=== PATIENT | female | born 1945 | race American Indian/Alaskan Native ===

== ENCOUNTER 2018-02-17 10:37 | Emergency (ER) | payer MEDICARE ==
[2018-02-17 10:47] VITALS: BP 140/71
--- NOTE | 2018-02-17 11:57 | Emergency Department Report ---
ED Lower Extremity HPI - General Chief Complaint: Extremity Problem,Nontraumatic Stated Complaint: RT FOOT PAIN Time Seen by Provider: 02/17/18 11:24 Source: patient Mode of arrival: Wheelchair Limitations: No Limitations - History of Present Illness Initial Comments: This is a 72 y.o. female that presents to the emergency room with a complaint of right ankle and foot pain for 6 days. Patient states symptoms started last Monday as mild aching on right heel. Patient admits to history of heel spurs and thought pain was related to that. She admits to falling at her daughter at [employer] and that possibly aggravated right foot. She is currently taking OTC NSAID's for pain with no improvement of symptoms. She reports pain as 10/10 and throbbing in sensation with weightbearing. Patient denies numbness , tingling, redness, fever, nausea or vomiting. MD Complaint: ankle injury (right), foot injury (right) Onset/Timin -: days(s) Injury: Ankle: Right, Foot: Right Type of Injury: unknown Place: home Severity: moderate Severity scale (0 -10): 10 Improves With: nothing Worsens With: weight bearing, movement, palpation Associated Symptoms: swelling, able to partially bear weight, ambulatory. denies: snap/pop sensation, numbness, tingling, unable to bear weight Treatments Prior to Arrival: NSAIDS - Related Data Home Medications Medication Instructions Recorded Confirmed Last Taken HYDROcodone/ACETAMINOPHEN 1 tab PO PRN 09/12/13 11/24/15 09/09/13 [Hydrocodon-Acetaminophen 5-325] Insulin Glargine,Hum.rec.anlog 15 units SC QAM 09/12/13 11/24/15 11/23/15 [Lantus Solostar] 15 Insulin Glargine,Hum.rec.anlog 25 units SC HS 09/12/13 11/24/15 09/11/13 [Lantus] Isosorbide Mononitrate [Isosorbide 120 mg PO DAILY 09/12/13 11/24/15 11/24/15 05 :00 Mononitrate ER] 120mg Repaglinide 1 tab PO TID 09/12/13 11/24/15 11/24/15 05:00 2mg Ropinirole HCl 1 tab PO DAILY 09/12/13 11/24/15 11/24/15 05:00 1 Valsartan/Hydrochlorothiazide 1 tab PO DAILY 09/12/13 11/24/15 11/24/15 05:00 [Valsartan-Hctz 320-25 mg] 1 Atorvastatin [Lipitor] 40 mg PO QHS 11/24/15 11/24/15 11/23/15 40mg Carvedilol [Coreg] 25 mg PO DAILY 11/24/15 11/24/15 11/24/15 05:00 25mg Clonidine HCl [Catapres] 0.3 mg PO TID 11/24/15 11/24/15 11/24/15 05:00 0.3mg Clopidogrel Bisulfate [Plavix] 75 mg PO DAILY 11/24/15 11/24/15 11/17/15 75mg Ferrous Sulfate [Feosol 325 MG tab] 325 mg PO DAILY 11/24/15 11/24/15 11/24/15 05:00 325mg Furosemide [Lasix TAB] 40 mg PO DAILY 11/24/15 11/24/15 11/24/15 05:00 40mg ISOSORBIDE MONOnitrate [Imdur ER] 120 mg PO QDAY 11/24/15 11/24/15 11/24/15 05: 00 120mg Linagliptin [Tradjenta] 5 mg PO DAILY 11/24/15 11/24/15 11/24/15 05:00 5mg Oxaprozin 600 mg PO BID 11/24/15 11/24/15 11/24/15 05:00 600mg Potassium Chloride [Klor-Con 10] 20 meq PO DAILY 11/24/15 11/24/15 11/24/15 20meq Repaglinide [Prandin] 2 mg PO TID 11/24/15 11/24/15 11/24/15 05:00 2mg amLODIPine 10 mg PO DAILY 11/24/15 11/24/15 11/24/15 05:00 10mg hydrALAZINE [Apresoline TAB] 100 mg PO TID 11/24/15 11/24/15 11/24/15 05:00 100mg rOPINIRole [Requip] 1 mg PO DAILY 11/24/15 11/24/15 11/24/15 05:00 1mg Previous Rx's Medication Instructions Recorded Last Taken Type Naproxen [Naprosyn] 500 mg PO BID #15 tablet 02/17/18 Unknown Rx traMADol [Ultram 50 MG tab] 50 mg PO Q6HR PRN #12 tablet 02/17/18 Unknown Rx Allergies Allergy/AdvReac Type Severity Reaction Status Date / Time nitroglycerin AdvReac Shortness Verified 11/24/15 08:48 of Breath ED Review of Systems ROS: Stated complaint: RT FOOT PAIN Other details as noted in HPI Constitutional: denies: chills, fever Respiratory: denies: cough, shortness of breath, wheezing Cardiovascular: denies: chest pain, palpitations Gastrointestinal: denies: abdominal pain, nausea, diarrhea Musculoskeletal: joint swelling (right ankle), arthralgia (right ankle and foot pain). denies: back pain Skin: denies: rash, lesions Neurological: denies: headache, weakness, numbness, paresthesias Psychiatric: denies: anxiety, depression ED Past Medical Hx - Past Medical History Hx Hypertension: Yes Hx Congestive Heart Failure: Yes Hx Diabetes: Yes Hx Renal Disease: Yes Hx Arthritis: Yes - Surgical History Hx Coronary Stent: Yes (2008) Hx Open Heart Surgery: Yes - Social History Smoking Status: Never Smoker Substance Use Type: None - Medications Home Medications: Home Medications Medication Instructions Recorded Confirmed Last Taken Type HYDROcodone/ACETAMINOPHEN 1 tab PO PRN 09/12/13 11/24/15 09/09/13 History [Hydrocodon-Acetaminophen 5-325] Insulin Glargine,Hum.rec.anlog 15 units SC QAM 09/12/13 11/24/15 11/23/15 History [Lantus Solostar] 15 Insulin Glargine,Hum.rec.anlog 25 units SC HS 09/12/13 11/24/15 09/11/13 History [Lantus] Isosorbide Mononitrate [Isosorbide 120 mg PO DAILY 09/12/13 11/24/15 11/24/15 05 :00 History Mononitrate ER] 120mg Repaglinide 1 tab PO TID 09/12/13 11/24/15 11/24/15 05:00 History 2mg Ropinirole HCl 1 tab PO DAILY 09/12/13 11/24/15 11/24/15 05:00 History 1 Valsartan/Hydrochlorothiazide 1 tab PO DAILY 09/12/13 11/24/15 11/24/15 05:00 History [Valsartan-Hctz 320-25 mg] 1 Atorvastatin [Lipitor] 40 mg PO QHS 11/24/15 11/24/15 11/23/15 History 40mg Carvedilol [Coreg] 25 mg PO DAILY 11/24/15 11/24/15 11/24/15 05:00 History 25mg Clonidine HCl [Catapres] 0.3 mg PO TID 11/24/15 11/24/15 11/24/15 05:00 History 0.3mg Clopidogrel Bisulfate [Plavix] 75 mg PO DAILY 11/24/15 11/24/15 11/17/15 History 75mg Ferrous Sulfate [Feosol 325 MG tab] 325 mg PO DAILY 11/24/15 11/24/15 11/24/15 05:00 History 325mg Furosemide [Lasix TAB] 40 mg PO DAILY 11/24/15 11/24/15 11/24/15 05:00 History 40mg ISOSORBIDE MONOnitrate [Imdur ER] 120 mg PO QDAY 11/24/15 11/24/15 11/24/15 05: 00 History 120mg Linagliptin [Tradjenta] 5 mg PO DAILY 11/24/15 11/24/15 11/24/15 05:00 History 5mg Oxaprozin 600 mg PO BID 11/24/15 11/24/15 11/24/15 05:00 History 600mg Potassium Chloride [Klor-Con 10] 20 meq PO DAILY 11/24/15 11/24/15 11/24/15 History 20meq Repaglinide [Prandin] 2 mg PO TID 11/24/15 11/24/15 11/24/15 05:00 History 2mg amLODIPine 10 mg PO DAILY 11/24/15 11/24/15 11/24/15 05:00 History 10mg hydrALAZINE [Apresoline TAB] 100 mg PO TID 11/24/15 11/24/15 11/24/15 05:00 History 100mg rOPINIRole [Requip] 1 mg PO DAILY 11/24/15 11/24/15 11/24/15 05:00 History 1mg Naproxen [Naprosyn] 500 mg PO BID #15 tablet 02/17/18 Unknown Rx traMADol [Ultram 50 MG tab] 50 mg PO Q6HR PRN #12 tablet 02/17/18 Unknown Rx ED Physical Exam - General Limitations: No Limitations General appearance: alert, in no apparent distress, obese - Respiratory Respiratory exam: Present: normal lung sounds bilaterally. Absent: respiratory distress - Cardiovascular Cardiovascular Exam: Present: regular rate, normal rhythm. Absent: systolic murmur, diastolic murmur, rubs, gallop - GI/Abdominal GI/Abdominal exam: Present: soft, normal bowel sounds. Absent: organomegaly, mass - Extremities Exam Extremities exam: Present: normal capillary refill. Absent: calf tenderness - Expanded Lower Extremity Exam Right Hip exam: Present: normal inspection, full ROM Upper Leg exam: Present: normal inspection, full ROM Knee exam: Present: normal inspection, full ROM Lower Leg exam: Present: normal inspection, full ROM Ankle exam: Present: full ROM, swelling (nonpitting ). Absent: tenderness, abrasion, laceration, ecchymosis, deformity, crepidus, dislocation, erythema, anterior draw sign Foot/Toe exam: Present: full ROM, swelling, calcaneal tenderness. Absent: abrasion, laceration, ecchymosis, deformity, dislocation, erythema, amputation, puncture wound, foreign body, tenderness at base of 5th metatarsal, nail avulsion Neuro vascular tendon exam: Present: no vascular compromise Gait: Positive: observed and limited by pain - Neurological Exam Neurological exam: Present: alert, oriented X3 - Psychiatric Psychiatric exam: Present: normal affect, normal mood - Skin Skin exam: Present: warm, dry, intact, normal color. Absent: rash ED Course Vital Signs 02/17/18 10:44 Temperature 98.4 F Pulse Rate 59 L Respiratory 16 Rate Blood Pressure 140/71 O2 Sat by Pulse 100 Oximetry ED Lower Extremity MDM - Lab Data Result diagrams: 02/17/18 12:25 Lab Results 02/17/18 02/17/18 Range/Units 12:25 12:25 WBC 6.7 (4.5-11.0) K/mm3 RBC 3.79 (3.65-5.03) M/mm3 Hgb 11.2 (10.1-14.3) gm/dl Hct 34.1 (30.3-42.9) % MCV 90 (79-97) fl MCH 30 (28-32) pg MCHC 33 (30-34) % RDW 14.8 (13.2-15.2) % Plt Count 188 (140-440) K/mm3 Uric Acid 10.9 H (3.5-7.6) mg/dL - Radiology Data Radiology results: report reviewed, image reviewed FINAL REPORT EXAM: XR ANKLE 2V RT HISTORY: right ankle pain TECHNIQUE: Two views right ankle. PRIORS: None currently available. FINDINGS: There is no acute fracture. There is no evidence for healing fracture. There is no acute dislocation. Mild nonspecific arthrosis. Prominent calcaneal plantar spur. Vascular calcifications. Osteopenia. Soft tissue swelling. Tiny joint effusion. There is no cortical destruction to suggest osteomyelitis. There are no suspicious osseous lesions. There are no radiopaque foreign objects. IMPRESSION: No acute osseous findings. Mild nonspecific arthrosis at the ankle mortise. Calcaneal plantar spur. Mild soft tissue swelling and tiny joint effusion. - Medical Decision Making This is a 72 y.o. female presents with right ankle and foot pain for 6 days. Patient was examined by me. Vitals are normal and patient is in no acute distress. Patient given pain medication while in emergency room. Obtained uric acid, CBC, x-rays of right foot and ankle. CBC normal, uric acid pending. X-rays dictated by radiologist and report reviewed by myself. No acute osseous findings. Mild nonspecific arthrosis at the ankle mortise. Calcaneal plantar spur. Mild soft tissue swelling and tiny joint effusion. Patient informed of results. Quinten wrap to right lower extremity and apply. Past medical history of diabetes type 2, hypertension, and hyperlipidemia. Start naproxen and tramadol for tendinitis pain. Plan discussed with patient to discharge home and treat outpatient. Patient discharged home in stable condition. Follow up with PCP in 2-3 days. Critical care attestation.: If time is entered above; I have spent that time in minutes in the direct care of this critically ill patient, excluding procedure time. ED Disposition Clinical Impression: Tendinitis of ankle or foot, Right foot pain Right ankle pain Qualifiers: Chronicity: acute Qualified Code(s): M25.571 - Pain in right ankle and joints of right foot Disposition: DC- TO HOME OR SELFCARE Is pt being admited?: No Does the pt Need Aspirin: No Condition: Stable Instructions: Tendinitis (ED), Ankle Exercises (GEN) Additional Instructions: Rest Use ice or heat on affected area for 20 minutes and off for 2 hours. Take pain medication as needed for pain. Follow up with Primary Care Provider in 2-3 days. Prescriptions: Naproxen [Naprosyn] 500 mg PO BID #15 tablet traMADol [Ultram 50 MG tab] 50 mg PO Q6HR PRN #12 tablet PRN Reason: Pain Referrals: MARIVEL ARNOLD MD [Staff Physician] - 3-5 Days DIONICIO PLATT MD [Staff Physician] - 3-5 Days [facility] [Provider Group] - 3-5 Days Time of Disposition: 14:31 Print Language: BULGARIAN
[2018-02-17] MEDS ORDERED: MOTRIN PO ONE (12:29)
[2018-02-17 12:44] LABS: Hematocrit 34.1 % (30.3-42.9); Hemoglobin 11.2 gm/dl (10.1-14.3); Mean Corpuscular HGB Conc 33 % (30-34); Mean Corpuscular Hemoglobin 30 pg (28-32); Mean Corpuscular Volume 90 fl (79-97); Platelet Count 188 K/mm3 (140-440); Red Blood Count 3.79 M/mm3 (3.65-5.03); Red Cell Distribution Width 14.8 % (13.2-15.2)
--- NOTE | 2018-02-17 13:45 | XRay Report ---
FINAL REPORT EXAM: XR ANKLE 2V RT HISTORY: right ankle pain TECHNIQUE: Two views right ankle. PRIORS: None currently available. FINDINGS: There is no acute fracture. There is no evidence for healing fracture. There is no acute dislocation. Mild nonspecific arthrosis. Prominent calcaneal plantar spur. Vascular calcifications. Osteopenia. Soft tissue swelling. Tiny joint effusion. There is no cortical destruction to suggest osteomyelitis. There are no suspicious osseous lesions. There are no radiopaque foreign objects. IMPRESSION: No acute osseous findings. Mild nonspecific arthrosis at the ankle mortise. Calcaneal plantar spur. Mild soft tissue swelling and tiny joint effusion.
--- NOTE | 2018-02-17 13:47 | XRay Report ---
FINAL REPORT EXAM: XR FOOT 2V RT HISTORY: right foot pain TECHNIQUE: Two views right foot. PRIORS: None currently available. FINDINGS: There is no acute fracture. There is no evidence for healing fracture. There is no acute dislocation. Vascular calcifications. Calcaneal plantar spur. [id number] arthrosis at the midfoot. Prominent exostosis or osteophyte at the dorsal aspect of the tarsal bones may be causing tendinopathy. Mild arthrosis at the ankle mortise. There is no cortical destruction to suggest osteomyelitis. There are no suspicious osseous lesions. There are no radiopaque foreign objects. IMPRESSION: No acute osseous findings. Multifocal nonspecific arthrosis. Prominent exostosis or osteophyte at the dorsal aspect of the tarsal bones may be causing tendinopathy. Calcaneal plantar spur.
== END 2018-02-17 14:56 | disposition home or self-care (01) ==
LOC: ED 10:37
DX: M77.9 Enthesopathy, unspecified (principal); I11.0 Hypertensive heart disease with heart failure; I50.9 Heart failure, unspecified; E11.9 Type 2 diabetes mellitus without complications; M19.90 Unspecified osteoarthritis, unspecified site; Z95.1 Presence of aortocoronary bypass graft; Z88.8 Allergy status to other drugs, medicaments and biological substances; Z79.4 Long term (current) use of insulin
CPT/HCPCS: 36415; 84550; 85027; 99284

== ENCOUNTER 2018-04-04 00:04 | Emergency (ER) | payer MEDICARE ==
[2018-04-04] MEDS ORDERED: NACL 0.9% 1000 ML 1,000 ML IV ONE (00:45)
[2018-04-04] MEDS ORDERED: TYLENOL PO ONE (00:48)
[2018-04-04] MEDS ORDERED: NACL 0.9% 500 ML ONE (00:52)
[2018-04-04] MEDS ORDERED: NACL 0.9% 500 ML 500 ML IV ONE (00:52)
--- NOTE | 2018-04-04 01:29 | XRay Report ---
FINAL REPORT EXAM: XR CHEST 1V AP HISTORY: possible Sepsis COMPARISON: None available. FINDINGS: Frontal view(s) of the chest obtained. Mild to moderate cardiac enlargement. Prior median sternotomy.. No gross consolidation or effusion. No pneumothorax. IMPRESSION: No focal consolidation. Mild to moderate cardiac enlargement.
[2018-04-04 01:34] LABS: Basophils % (Auto) 0.5 % (0.0-1.8); Eosinophils % (Auto) 0.3 % (0.0-4.3); Hematocrit 31.7 % (30.3-42.9); Hemoglobin 10.3 gm/dl (10.1-14.3); Lymphocytes # (Auto) 1.2 K/mm3 (1.2-5.4); Mean Corpuscular HGB Conc 32 % (30-34); Mean Corpuscular Hemoglobin 29 pg (28-32); Mean Corpuscular Volume 90 fl (79-97); Monocytes % (Auto) 12.3 % (0.0-7.3); Platelet Count 219 K/mm3 (140-440); Red Blood Count 3.54 M/mm3 (3.65-5.03)
[2018-04-04 01:38] LABS: Albumin 3.6 g/dL (3.9-5); Calcium 9.3 mg/dL (8.4-10.2)
[2018-04-04] MEDS ORDERED: HumuLIN R IV ONE (02:04)
[2018-04-04] MEDS ORDERED: MORPHINE IV ONE (02:09)
[2018-04-04 02:15] LABS: INR 0.91 (0.87-1.13)
[2018-04-04 02:57] LABS: Bacteria,Urine 1+ /HPF (Negative); Bilirubin,Urine NEG (Negative); Blood,Urine NEG (Negative); Color,Urine Straw (Yellow); Protein,Urine >500 mg/dL (Negative); Urobilinogen,Urine < 2.0 mg/dL (<2.0)
--- NOTE | 2018-04-04 03:40 | Cat Scan Report ---
FINAL REPORT EXAM: CT ABDOMEN PELVIS WO CON HISTORY: RLQ and pelvic pain, right flank pain COMPARISON: None available. TECHNIQUE: Contiguous axial images were obtained. Additional sagittal and coronal reformatted images were obtained. FINDINGS: [id number] cardiac enlargement. Subpleural nodule the posterior margin of the left lower lobe measuring 7 x 4 millimeters. This may be postinflammatory. Mild linear atelectasis at the lung bases. No calcified gallstones. Liver mildly enlarged measuring 24 centimeters. Spleen and pancreas are grossly unremarkable. Mild nodular thickening of adrenal glands. Tiny hiatal hernia. 2 centimeter left renal cyst. No nephrolithiasis or hydronephrosis on the left. Mild bilateral perinephric fat stranding greater on the right. No hydronephrosis on the right. No ureteral calculi. Urinary bladder is unremarkable. Uterus is surgically absent. Ovaries are grossly unremarkable. No free fluid or lymphadenopathy in the pelvic cavity. Moderate stool within the colon. The appendix is partially gas-filled and normal in caliber measuring 5-6 millimeters in greatest diameter. Diverticulosis of left colon. No diverticulitis. No focal inflammatory changes the bowel. [id number] degenerative changes of the lumbar spine. Mild degenerative changes of bilateral hips. IMPRESSION: Mild bilateral perinephric fat stranding slightly greater on the right. Correlation with urinalysis suggested to ensure no active inflammation of the kidneys. No obstructive uropathy urolithiasis. Moderate stool in the colon. No focal inflammatory changes the bowel. Mild diverticulosis of left colon. No diverticulitis. The appendix is normal in caliber. Sub millimeter subpleural nodule left lower lobe which may be postinflammatory. Followup chest CT in 6 months suggested to ensure stability.
[2018-04-04] MEDS ORDERED: APRESOLINE IV ONE (03:53)
[2018-04-04 04:17] VITALS: BP 166/74
--- NOTE | 2018-04-04 04:44 | Emergency Department Report ---
HPI - General Chief Complaint: Abdominal Pain Time Seen by Provider: 04/04/18 01:52 - HPI HPI: 72-year-old female presents to the emergency department with a 4 day history of some pain from the right lower back that radiates around the flank to the right lower abdomen and down her right leg. The aching started on Monday but it got progressively worse and is currently more sharp. She denies any dysuria, vaginal bleeding or discharge, problems with bowel or bladder, numbness or paresthesias or any neurological deficits. The patient had some tramadol from previous gout that she had gotten from her primary care physician and she took one of these medications with some relief but not resolution. She has a past medical history of hypertension, diabetes, CHF, chronic kidney disease, coronary artery disease with quadruple bypass. Her primary care physician is Dr. Bro. Her cement cutter is Dr. Walter. The patient presents with a fever. Denies feeling feverish or having any idea that she had a fever. She denies any sore throat, cough, ear pain, rash. ED Past Medical Hx - Past Medical History Previous Medical History?: Yes Hx Hypertension: Yes Hx Congestive Heart Failure: Yes Hx Diabetes: Yes Hx Renal Disease: Yes Hx Arthritis: Yes - Surgical History Past Surgical History?: Yes Hx Coronary Stent: Yes (2008 x) Hx Open Heart Surgery: Yes Additional Surgical History: hyster - Social History Smoking Status: Current Some Day Smoker - Medications Home Medications: Home Medications Medication Instructions Recorded Confirmed Last Taken Type HYDROcodone/ACETAMINOPHEN 1 tab PO PRN 09/12/13 11/24/15 09/09/13 History [Hydrocodon-Acetaminophen 5-325] Insulin Glargine,Hum.rec.anlog 15 units SC QAM 09/12/13 11/24/15 11/23/15 History [Lantus Solostar] 15 Insulin Glargine,Hum.rec.anlog 25 units SC HS 09/12/13 11/24/15 09/11/13 History [Lantus] Isosorbide Mononitrate [Isosorbide 120 mg PO DAILY 09/12/13 11/24/15 11/24/15 05 :00 History Mononitrate ER] 120mg Repaglinide 1 tab PO TID 09/12/13 11/24/15 11/24/15 05:00 History 2mg Ropinirole HCl 1 tab PO DAILY 09/12/13 11/24/15 11/24/15 05:00 History 1 Valsartan/Hydrochlorothiazide 1 tab PO DAILY 09/12/13 11/24/15 11/24/15 05:00 History [Valsartan-Hctz 320-25 mg] 1 Atorvastatin [Lipitor] 40 mg PO QHS 11/24/15 11/24/15 11/23/15 History 40mg Carvedilol [Coreg] 25 mg PO DAILY 11/24/15 11/24/15 11/24/15 05:00 History 25mg Clonidine HCl [Catapres] 0.3 mg PO TID 11/24/15 11/24/15 11/24/15 05:00 History 0.3mg Clopidogrel Bisulfate [Plavix] 75 mg PO DAILY 11/24/15 11/24/15 11/17/15 History 75mg Ferrous Sulfate [Feosol 325 MG tab] 325 mg PO DAILY 11/24/15 11/24/15 11/24/15 05:00 History 325mg Furosemide [Lasix TAB] 40 mg PO DAILY 11/24/15 11/24/15 11/24/15 05:00 History 40mg ISOSORBIDE MONOnitrate [Imdur ER] 120 mg PO QDAY 11/24/15 11/24/15 11/24/15 05: 00 History 120mg Linagliptin [Tradjenta] 5 mg PO DAILY 11/24/15 11/24/15 11/24/15 05:00 History 5mg Oxaprozin 600 mg PO BID 11/24/15 11/24/15 11/24/15 05:00 History 600mg Potassium Chloride [Klor-Con 10] 20 meq PO DAILY 11/24/15 11/24/15 11/24/15 History 20meq Repaglinide [Prandin] 2 mg PO TID 11/24/15 11/24/15 11/24/15 05:00 History 2mg amLODIPine 10 mg PO DAILY 11/24/15 11/24/15 11/24/15 05:00 History 10mg hydrALAZINE [Apresoline TAB] 100 mg PO TID 11/24/15 11/24/15 11/24/15 05:00 History 100mg rOPINIRole [Requip] 1 mg PO DAILY 11/24/15 11/24/15 11/24/15 05:00 History 1mg Naproxen [Naprosyn] 500 mg PO BID #15 tablet 02/17/18 Unknown Rx Docusate Sodium [Colace] 100 mg PO BID PRN #20 capsule 04/04/18 Unknown Rx Magnesium Citrate [Citrate of 300 ml PO NOW #1 bottle 04/04/18 Unknown Rx Magnesia] traMADol [Ultram 50 MG tab] 50 mg PO Q6HR PRN #12 tablet 04/04/18 Unknown Rx ED Review of Systems ROS: Stated complaint: RT FLANK PAIN Other details as noted in HPI Comment: All other systems reviewed and negative Constitutional: fever. denies: chills Eyes: denies: eye pain, eye discharge, vision change ENT: denies: ear pain, throat pain Respiratory: denies: cough, shortness of breath, wheezing Cardiovascular: denies: chest pain, palpitations Gastrointestinal: abdominal pain. denies: vomiting Genitourinary: denies: dysuria, discharge Musculoskeletal: back pain. denies: joint swelling Skin: denies: rash, lesions Neurological: denies: headache, weakness, numbness, paresthesias Physical Exam - Physical Exam Vital Signs: Vital Signs 04/04/18 04/04/18 04/04/18 00:09 01:55 02:57 Temperature 102.6 F H 99.8 F H Pulse Rate 62 65 Respiratory 16 16 Rate Blood Pressure 206/80 Blood Pressure 199/90 [Left] O2 Sat by Pulse 99 Oximetry 04/04/18 04/04/18 04/04/18 03:30 04:01 04:08 Temperature Pulse Rate 61 59 L 55 L Respiratory 16 16 16 Rate Blood Pressure Blood Pressure 172/71 164/89 166/74 [Left] O2 Sat by Pulse 94 97 95 Oximetry 04/04/18 04:16 Temperature Pulse Rate 56 L Respiratory Rate Blood Pressure 166/74 Blood Pressure [Left] O2 Sat by Pulse Oximetry Physical Exam: GENERAL: The patient is well-developed well-nourished. HENT: Normocephalic. Atraumatic. Patient has moist mucous membranes. EYES: Extraocular motions are intact. Pupils equal reactive to light bilaterally. NECK: Supple. Trachea is midline. CHEST/LUNGS: Clear to auscultation. There is no respiratory distress noted. HEART/CARDIOVASCULAR: Regular. There is no tachycardia. There is no murmur. ABDOMEN: Abdomen is soft. There is some right lower quadrant mild tenderness to palpation. No guarding. Patient has normal bowel sounds. Obese habitus. SKIN: Skin is warm and dry. NEURO: The patient is awake, alert, and oriented. The patient is cooperative. The patient has no focal neurologic deficits. The patient has normal speech. MUSCULOSKELETAL: There is no tenderness or deformity. There is no limitation range of motion. There is no evidence of acute injury. BACK: No midline thoracic or lumbar tenderness to palpation, step-off or deformity. There is some reproducible right lower lumbar and buttock pain to palpation. ED Course Vital Signs 04/04/18 04/04/18 04/04/18 00:09 01:55 02:57 Temperature 102.6 F H 99.8 F H Pulse Rate 62 65 Respiratory 16 16 Rate Blood Pressure 206/80 Blood Pressure 199/90 [Left] O2 Sat by Pulse 99 Oximetry 04/04/18 04/04/18 04/04/18 03:30 04:01 04:08 Temperature Pulse Rate 61 59 L 55 L Respiratory 16 16 16 Rate Blood Pressure Blood Pressure 172/71 164/89 166/74 [Left] O2 Sat by Pulse 94 97 95 Oximetry 04/04/18 04:16 Temperature Pulse Rate 56 L Respiratory Rate Blood Pressure 166/74 Blood Pressure [Left] O2 Sat by Pulse Oximetry ED Medical Decision Making - Lab Data Result diagrams: 04/04/18 00:57 04/04/18 00:57 - EKG Data -: EKG Interpreted by Me EKG shows normal: sinus rhythm, axis, intervals, QRS complexes (LVH, early repolarization), ST-T waves Rate: normal - EKG Data When compared to previous EKG there are: previous EKG unavailable Interpretation: LVH - Radiology Data Radiology results: report reviewed, image reviewed interpreted by me: Chest x-ray does not show any acute process. There are no pleural effusions, obvious pneumonia and there is no pneumothorax. EXAM: CT ABDOMEN PELVIS WO CON HISTORY: RLQ and pelvic pain, right flank pain COMPARISON: None available. TECHNIQUE: Contiguous axial images were obtained. Additional sagittal and coronal reformatted images were obtained. FINDINGS: [id number] cardiac enlargement. Subpleural nodule the posterior margin of the left lower lobe measuring 7 x 4 millimeters. This may be postinflammatory. Mild linear atelectasis at the lung bases. No calcified gallstones. Liver mildly enlarged measuring 24 centimeters. Spleen and pancreas are grossly unremarkable. Mild nodular thickening of adrenal glands. Tiny hiatal hernia. 2 centimeter left renal cyst. No nephrolithiasis or hydronephrosis on the left. Mild bilateral perinephric fat stranding greater on the right. No hydronephrosis on the right. No ureteral calculi. Urinary bladder is unremarkable. Uterus is surgically absent. Ovaries are grossly unremarkable. No free fluid or lymphadenopathy in the pelvic cavity. Moderate stool within the colon. The appendix is partially gas-filled and normal in caliber measuring 5-6 millimeters in greatest diameter. Diverticulosis of left colon. No diverticulitis. No focal inflammatory changes the bowel. [id number] degenerative changes of the lumbar spine. Mild degenerative changes of bilateral hips. IMPRESSION: Mild bilateral perinephric fat stranding slightly greater on the right. Correlation with urinalysis suggested to ensure no active inflammation of the kidneys. No obstructive uropathy urolithiasis. Moderate stool in the colon. No focal inflammatory changes the bowel. Mild diverticulosis of left colon. No diverticulitis. The appendix is normal in caliber. Sub millimeter subpleural nodule left lower lobe which may be postinflammatory. Followup chest CT in 6 months suggested to ensure stability. Transcribed By: CHUNG Dictated By: MAHSA BERRIOS MD Electronically Authenticated By: MAHSA BERRIOS MD Signed Date/Time: 04/04/18 8030 - Medical Decision Making Patient presents with a 4 day history of some sharp and burning pains to the right lower back that wraps around the flank and abdomen and also goes down the leg. Labs were mostly unremarkable except for some hyperglycemia with a blood sugar of about 310. No elevated anion gap and therefore she is low suspicion for diabetic ketoacidosis. Normal belly labs. No urinary tract infection. No leukocytosis. Patient was given a dose of IV insulin and her blood sugar came down to about 160. Patient's vital signs were mostly stable but she did present with a fever of about 102.8. On examination there is no focus of fever. She has no complaints of any ear pain, sore throat, cough or rash. Chest x-ray did not show any signs of pneumonia, focal consolidation, pleural effusion or pneumothorax. CT of the abdomen and pelvis without contrast was done that shows mild bilateral perinephric fat stranding but otherwise no obstructive uropathy. She does not have any urinary tract infection to show this is a sign of pyelonephritis. She has a mild to moderate amount of stool throughout the colon. There is some diverticulosis without diverticulitis. Therefore no etiology of the fever has been seen. She was given a dose of Tylenol and her fever came down and resolved. We discussed using Tylenol as needed for fever reduction. The patient has a history of chronic kidney disease and therefore she will avoid any NSAIDs. Patient was given a dose of pain medication and is feeling improved. She has good follow-up with primary care and nephrology. I think some of her back and leg pain could be sciatica or radiculopathy. The patient's CT showed a moderate amount of stool so the patient was given some Colace and magnesium citrate. She will return to the ER with any worsening of her symptoms or any acute distress. - Differential Diagnosis appendicitis, nephrolithiasis, cholecystitis, sciatica, shingles Critical Care Time: No Critical care attestation.: If time is entered above; I have spent that time in minutes in the direct care of this critically ill patient, excluding procedure time. ED Disposition Clinical Impression: Flank pain, Hyperglycemia Back pain Qualifiers: Back pain location: low back pain Chronicity: unspecified Back pain laterality : right Sciatica presence: with sciatica Sciatica laterality: sciatica of right side Qualified Code(s): M54.41 - Lumbago with sciatica, right side Sciatica Qualifiers: Laterality: right Qualified Code(s): M54.31 - Sciatica, right side Abdominal pain Qualifiers: Abdominal location: right lower quadrant Qualified Code(s): R10.31 - Right lower quadrant pain Hypertension Qualifiers: Hypertension type: essential hypertension Qualified Code(s): I10 - Essential ( primary) hypertension Chronic renal insufficiency Qualifiers: Chronic kidney disease stage: unspecified stage Qualified Code(s): N18.9 - Chronic kidney disease, unspecified Disposition: DC-01 TO HOME OR SELFCARE Is pt being admited?: No Condition: Stable Instructions: Sciatica (ED), Abdominal Pain (ED), Hypertension (ED), Back Pain (ED), Diabetic Hyperglycemia (ED) Additional Instructions: Please follow-up with your primary care physician and your cement cutter. Return to the emergency Department with any worsening of your symptoms or any acute distress. You have been prescribed a medication that is sedating and therefore should not be taken prior to driving, working, and responsible for children and in no way should be mixed with alcohol of any quantity. Try and stay away from foods that are high in salt and caffeinated products to help with your diabetes. Keep a blood sugar log. Prescriptions: Docusate Sodium [Colace] 100 mg PO BID PRN #20 capsule PRN Reason: Constipation Magnesium Citrate [Citrate of Magnesia] 300 ml PO NOW #1 bottle traMADol [Ultram 50 MG tab] 50 mg PO Q6HR PRN #12 tablet PRN Reason: Pain Referrals: JEAN BRO MD [Primary Care Provider] - 2-3 Days Time of Disposition: 04:45
== END 2018-04-04 05:20 | disposition home or self-care (01) ==
LOC: ED 00:04
DX: E11.65 Type 2 diabetes mellitus with hyperglycemia (principal); M54.41 Lumbago with sciatica, right side; I13.0 Hypertensive heart and chronic kidney disease with heart failure and stage 1 through stage 4 chronic kidney disease, or unspecified chronic kidney disease; E11.22 Type 2 diabetes mellitus with diabetic chronic kidney disease; N18.9 Chronic kidney disease, unspecified; I50.9 Heart failure, unspecified; R10.31 Right lower quadrant pain; M19.90 Unspecified osteoarthritis, unspecified site; F17.200 Nicotine dependence, unspecified, uncomplicated; Z79.4 Long term (current) use of insulin; Z90.710 Acquired absence of both cervix and uterus
CPT/HCPCS: 36415; 71045; 74176; 80053; 81001; 82140; 82805; 82962; 85025; 85610; 87040; 87086; 96361; 96374; 96375; 99285; J0360; J2270; J7030; J7040; J1815

== ENCOUNTER 2018-08-12 08:43 | Inpatient (IN) | payer MEDICARE ==
[2018-08-12 10:04] LABS: Hematocrit 25.1 % (30.3-42.9); Hemoglobin 8.2 gm/dl (10.1-14.3); Mean Corpuscular HGB Conc 33 % (30-34); Mean Corpuscular Volume 85 fl (79-97); Platelet Count 233 K/mm3 (140-440); Red Blood Count 2.97 M/mm3 (3.65-5.03); Red Cell Distribution Width 18.4 % (13.2-15.2)
[2018-08-12] MEDS ORDERED: NACL 0.9% 500 ML 500 ML IV ONE (10:37)
--- NOTE | 2018-08-12 10:43 | Emergency Department Report ---
HPI - General Chief Complaint: Arrhythmia/Palpitations Time Seen by Provider: 08/12/18 10:24 - HPI HPI: Room 21 The patient is 72-year-old female presented with a chief complaint of shortness of breath or chest discomfort and palpitations. The patient states yesterday she developed shortness of breath worsened when in the reclined position. The patient states when the head of her bed is elevated or shortness of breath improves. Patient states yesterday she also developed palpitations as though her heart was skipping a beat causing her to "shake." The patient states yesterday she developed intermittent tightness in the left upper chest. Patient denies nausea/vomiting or diaphoresis. The patient states she's had bilateral lower extremity edema for the past 2 months. The patient states her diuretic was changed from Lasix to another diuretic (Bumex?) By her machine gun mechanic 3 days ago. Patient denies bright red blood per rectum but states she's had intermittent black stools for one week which she attributed to her iron supplements Location: Lungs Duration: [See above] Quality: Shortness of Breath Severity: Moderate Modifying factors: [see above] Context: [see above] Mode of transportation: [not driving] ED Past Medical Hx - Past Medical History Hx Hypertension: Yes Hx Congestive Heart Failure: Yes Hx Diabetes: Yes Hx Renal Disease: Yes Hx Arthritis: Yes - Surgical History Hx Coronary Stent: Yes (2008 x4) Hx Open Heart Surgery: Yes Additional Surgical History: hyster - Family History Family history: no significant - Social History Smoking Status: Never Smoker Substance Use Type: None - Medications Home Medications: Home Medications Medication Instructions Recorded Confirmed Last Taken Type HYDROcodone/ACETAMINOPHEN 1 tab PO PRN 09/12/13 11/24/15 09/09/13 History [Hydrocodon-Acetaminophen 5-325] Insulin Glargine,Hum.rec.anlog 15 units SC QAM 09/12/13 11/24/15 11/23/15 History [Lantus Solostar] 15 Insulin Glargine,Hum.rec.anlog 25 units SC HS 09/12/13 11/24/15 09/11/13 History [Lantus] Isosorbide Mononitrate [Isosorbide 120 mg PO DAILY 09/12/13 11/24/15 11/24/15 05:00 History Mononitrate ER] 120mg Repaglinide 1 tab PO TID 09/12/13 11/24/15 11/24/15 05:00 History 2mg Ropinirole HCl 1 tab PO DAILY 09/12/13 11/24/15 11/24/15 05:00 History 1 Valsartan/Hydrochlorothiazide 1 tab PO DAILY 09/12/13 11/24/15 11/24/15 05:00 History [Valsartan-Hctz 320-25 mg] 1 Atorvastatin [Lipitor] 40 mg PO QHS 11/24/15 11/24/15 11/23/15 History 40mg Carvedilol [Coreg] 25 mg PO DAILY 11/24/15 11/24/15 11/24/15 05:00 History 25mg Clonidine HCl [Catapres] 0.3 mg PO TID 11/24/15 11/24/15 11/24/15 05:00 History 0.3mg Clopidogrel Bisulfate [Plavix] 75 mg PO DAILY 11/24/15 11/24/15 11/17/15 History 75mg Ferrous Sulfate [Feosol 325 MG tab] 325 mg PO DAILY 11/24/15 11/24/15 11/24/15 05:00 History 325mg Furosemide [Lasix TAB] 40 mg PO DAILY 11/24/15 11/24/15 11/24/15 05:00 History 40mg ISOSORBIDE MONOnitrate [Imdur ER] 120 mg PO QDAY 11/24/15 11/24/15 11/24/15 05:00 History 120mg Linagliptin [Tradjenta] 5 mg PO DAILY 11/24/15 11/24/15 11/24/15 05:00 History 5mg Oxaprozin 600 mg PO BID 11/24/15 11/24/15 11/24/15 05:00 History 600mg Potassium Chloride [Klor-Con 10] 20 meq PO DAILY 11/24/15 11/24/15 11/24/15 History 20meq Repaglinide [Prandin] 2 mg PO TID 11/24/15 11/24/15 11/24/15 05:00 History 2mg amLODIPine 10 mg PO DAILY 11/24/15 11/24/15 11/24/15 05:00 History 10mg hydrALAZINE [Apresoline TAB] 100 mg PO TID 11/24/15 11/24/15 11/24/15 05:00 History 100mg rOPINIRole [Requip] 1 mg PO DAILY 11/24/15 11/24/15 11/24/15 05:00 History 1mg Naproxen [Naprosyn] 500 mg PO BID #15 tablet 02/17/18 Unknown Rx Docusate Sodium [Colace] 100 mg PO BID PRN #20 capsule 04/04/18 Unknown Rx Magnesium Citrate [Citrate of 300 ml PO NOW #1 bottle 04/04/18 Unknown Rx Magnesia] traMADol [Ultram 50 MG tab] 50 mg PO Q6HR PRN #12 tablet 04/04/18 Unknown Rx ED Review of Systems ROS: Stated complaint: FAST HEART BEAT Other details as noted in HPI Constitutional: denies: diaphoresis Eyes: denies: eye pain ENT: denies: throat pain Respiratory: orthopnea, shortness of breath Cardiovascular: chest pain, palpitations Endocrine: no symptoms reported Gastrointestinal: denies: nausea, vomiting Genitourinary: denies: dysuria Musculoskeletal: denies: back pain Neurological: denies: headache Physical Exam - Physical Exam Vital Signs: Vital Signs 08/12/18 09:04 Pulse Rate 100 H Respiratory 18 Rate Blood Pressure 154/74 O2 Sat by Pulse 45 L Oximetry Physical Exam: GENERAL: The patient is well-developed well-nourished female lying on stretcher not appear to be in acute distress. [] HEENT: Normocephalic. Atraumatic. Extraocular motions are intact. Patient has moist mucous membranes. NECK: Supple. Trachea midline CHEST/LUNGS: Clear to auscultation. There is no respiratory distress noted. HEART/CARDIOVASCULAR: Regular. There is no tachycardia. There is no gallop rub or murmur. ABDOMEN: Abdomen is soft, nontender. Patient has normal bowel sounds. There is no abdominal distention. SKIN: There is no rash. There is 2-3+ bilateral lower extremity pitting edema. There is no diaphoresis. NEURO: The patient is awake, alert, and oriented. The patient is cooperative. The patient has normal speech MUSCULOSKELETAL:There is no evidence of acute injury. RECTAL: Paucity of stool, guaiac negative ED Course Vital Signs 08/12/18 09:04 Pulse Rate 100 H Respiratory 18 Rate Blood Pressure 154/74 O2 Sat by Pulse 45 L Oximetry ED Medical Decision Making - Lab Data Result diagrams: 08/12/18 09:55 08/12/18 09:55 Laboratory Tests 08/12/18 08/12/18 09:55 09:55 WBC 4.9 RBC 2.97 L Hgb 8.2 L Hct 25.1 L MCV 85 MCH 28 MCHC 33 RDW 18.4 H Plt Count 233 Sodium 140 Potassium 3.6 Chloride 100.1 Carbon Dioxide 29 Anion Gap 15 BUN 45 H Creatinine 1.8 H Estimated GFR 33 BUN/Creatinine Ratio 25 Glucose 102 H Calcium 8.9 Magnesium 1.90 Total Bilirubin 0.20 AST 22 ALT 13 Alkaline Phosphatase 81 Troponin T 0.073 H NT-Pro-B Natriuret Pep 4311 H Total Protein 7.0 Albumin 3.1 L Albumin/Globulin Ratio 0.8 Triglycerides 46 Cholesterol 96 LDL Cholesterol Direct 55 HDL Cholesterol 41 Cholesterol/HDL Ratio 2.34 - EKG Data -: EKG Interpreted by Me EKG shows normal: sinus rhythm Rate: normal - EKG Data When compared to previous EKG there are: changes noted Interpretation: nonspecific ST-T wave jose alfredo (T-wave inversions in leads 1, 2, 3, aVF, V3, V4, V5, V6. Frequent PVCs on monitor) - Radiology Data Radiology results: image reviewed (chest x-ray) interpreted by me: Chest [id number]. No pneumothorax - Differential Diagnosis ACS, pericarditis, CHF exacerbation, symptomatic anemia Critical care attestation.: If time is entered above; I have spent that time in minutes in the direct care of this critically ill patient, excluding procedure time. ED Disposition Clinical Impression: Symptomatic anemia, CHF exacerbation, Shortness of breath, Renal insufficiency Disposition: OP ADMIT IP TO THIS HOSP Is pt being admited?: Yes Does the pt Need Aspirin: No (renal insufficiency) Condition: Fair Referrals: ROXANNA ÁLVAREZ [Primary Care Provider] - 3-5 Days Time of Disposition: 11:02 (hospitalist paged (Dr Albert))
[2018-08-12 10:46] LABS: Albumin 3.1 g/dL (3.9-5); Calcium 8.9 mg/dL (8.4-10.2)
[2018-08-12 10:57] LABS: Chol/HDL Ratio 2.34 %
[2018-08-12] MEDS ORDERED: PLAVIX PO ONE (11:01)
[2018-08-12] MEDS ORDERED: NACL 0.9% 1000 ML 1,000 ML ONE (11:48)
[2018-08-12 11:51] LABS: Bilirubin,Urine NEG (Negative); Color,Urine Yellow (Yellow)
[2018-08-12] MEDS ORDERED: PLAVIX ONE (11:51)
[2018-08-12 11:52] LABS: Blood,Urine NEG (Negative); Mucus,Urine FEW /HPF; Protein,Urine <15 mg/dL mg/dL (Negative); Urobilinogen,Urine < 2.0 mg/dL (<2.0)
[2018-08-12 13:19] LABS: Free T4 (Free Thyroxine) 1.53 ng/dL (0.76-1.46)
--- NOTE | 2018-08-12 13:27 | XRay Report ---
FINAL REPORT EXAM: XR CHEST ROUTINE 2V HISTORY: SOB TECHNIQUE: Chest, two views PRIORS: 04/04/2018 FINDINGS: There is unchanged moderate cardiomegaly. Patient is status post median sternotomy. Mediastinal contours are unchanged. There is mild prominence of upper lobe pulmonary vasculature. The lungs are clear. There are no pleural effusion seen. There is no evidence of pneumothorax. IMPRESSION: Moderate cardiomegaly with mild prominence of upper lobe pulmonary vasculature.
--- NOTE | 2018-08-12 15:36 | History and Physical Report ---
History of Present Illness Date of examination: 08/12/18 Date of admission: 08/12/18 12:17 Chief complaint: Shortness of breath and chest pain for 1 day History of present illness: 72-year-old female with history of congestive heart failure, hypertension, diabetes and chronic kidney disease comes in for increasing shortness of breath, chest discomfort and palpitations. Patient developed shortness of breath since last night. More so on lying down and on minimal exertion. Chest discomfort or 5 on a scale of 1-10. Intermittent in nature. Says discomfort nonradiating in nature. No palpitations no diaphoresis. Patient has class IV NYHA symptoms. No fever or chills. No recent travel. Past Medical History Hx Hypertension: Yes Hx Congestive Heart Failure: Yes Hx Diabetes: Yes Hx Renal Disease: Yes Hx Arthritis: Yes Surgical History Hx Coronary Stent: Yes (2008) Hx Open Heart Surgery: Yes Additional Surgical History: hyster Family History Family history: no significant Social History Smoking Status: Never Smoker Substance Use Type: None Medications Home Medications: Home Medications Medication Instructions Recorded Confirmed Last Taken Type HYDROcodone/ACETAMINOPHEN 1 tab PO PRN 09/12/13 11/24/15 09/09/13 History [Hydrocodon-Acetaminophen 5-325] Insulin Glargine,Hum.rec.anlog 15 units SC QAM 09/12/13 11/24/15 11/23/15 History [Lantus Solostar] 15 Insulin Glargine,Hum.rec.anlog 25 units SC HS 09/12/13 11/24/15 09/11/13 History [Lantus] Isosorbide Mononitrate [Isosorbide 120 mg PO DAILY 09/12/13 11/24/15 11/24/15 05:00 History Mononitrate ER] 120mg Repaglinide 1 tab PO TID 09/12/13 11/24/15 11/24/15 05:00 History 2mg Ropinirole HCl 1 tab PO DAILY 09/12/13 11/24/15 11/24/15 05:00 History 1 Valsartan/Hydrochlorothiazide 1 tab PO DAILY 09/12/13 11/24/15 11/24/15 05:00 History [Valsartan-Hctz 320-25 mg] 1 Atorvastatin [Lipitor] 40 mg PO QHS 11/24/15 11/24/1511/22/16 History 40mg Carvedilol [Coreg] 25 mg PO DAILY 11/24/15 11/24/15 11/24/15 05:00 History 25mg Clonidine HCl [Catapres] 0.3 mg PO TID 11/24/15 11/24/15 11/24/15 05:00 History 0.3mg Clopidogrel Bisulfate [Plavix] 75 mg PO DAILY 11/24/15 11/24/15 11/17/15 History 75mg Ferrous Sulfate [Feosol 325 MG tab] 325 mg PO DAILY 11/24/15 11/24/15 11/24/15 05:00 History 325mg Furosemide [Lasix TAB] 40 mg PO DAILY 11/24/15 11/24/15 11/24/15 05:00 History 40mg ISOSORBIDE MONOnitrate [Imdur ER] 120 mg PO QDAY 11/24/15 11/24/15 11/24/15 05:00 History 120mg Linagliptin [Tradjenta] 5 mg PO DAILY 11/24/15 11/24/15 11/24/15 05:00 History 5mg Oxaprozin 600 mg PO BID 11/24/15 11/24/15 11/24/15 05:00 History 600mg Potassium Chloride [Klor-Con 10] 20 meq PO DAILY 11/24/15 11/24/15 11/24/15 History 20meq Repaglinide [Prandin] 2 mg PO TID 11/24/15 11/24/15 11/24/15 05:00 History 2mg amLODIPine 10 mg PO DAILY 11/24/15 11/24/15 11/24/15 05:00 History 10mg hydrALAZINE [Apresoline TAB] 100 mg PO TID 11/24/15 11/24/15 11/24/15 05:00 History 100mg rOPINIRole [Requip] 1 mg PO DAILY 11/24/15 11/24/15 11/24/15 05:00 History 1mg Naproxen [Naprosyn] 500 mg PO BID #15 tablet 02/17/18 Unknown Rx Docusate Sodium [Colace] 100 mg PO BID PRN #20 capsule 04/04/18 Unknown Rx Magnesium Citrate [Citrate of 300 ml PO NOW #1 bottle 04/04/18 Unknown Rx Magnesia] traMADol [Ultram 50 MG tab] 50 mg PO Q6HR PRN #12 tablet 04/04/18 Unknown Rx Review of Systems ROS: Stated complaint: FAST HEART BEAT Other details as noted in HPI Constitutional: denies: diaphoresis Eyes: denies: eye pain ENT: denies: throat pain Respiratory: orthopnea, shortness of breath Cardiovascular: chest pain, palpitations and shortness of breath Endocrine: no symptoms reported Gastrointestinal: denies: nausea, vomiting Genitourinary: denies: dysuria Musculoskeletal: denies: back pain Neurological: denies: headache Medications and Allergies Allergies Allergy/AdvReac Type Severity Reaction Status Date / Time nitroglycerin AdvReac Shortness Verified 11/24/15 08:48 of Breath Home Medications Medication Instructions Recorded Confirmed Last Taken Type Isosorbide Mononitrate [Isosorbide 120 mg PO DAILY 09/12/13 08/12/18 08/12/18 08:00 History Mononitrate ER] Ropinirole HCl 1 tab PO DAILY 09/12/13 08/12/18 08/11/18 21:00 History Carvedilol [Coreg] 25 mg PO DAILY 11/24/15 08/12/18 08/12/18 08:00 History Clonidine HCl [Catapres] 0.3 mg PO TID 11/24/15 08/12/18 08/12/18 08:00 History Clopidogrel Bisulfate [Plavix] 75 mg PO DAILY 11/24/15 08/12/18 08/12/18 08:00 History Oxaprozin 900 mg PO BID 11/24/15 08/12/18 08/12/18 08:00 History Potassium Chloride [Klor-Con 10] 20 meq PO DAILY 11/24/15 08/12/18 08/12/18 08:00 History hydrALAZINE [Apresoline TAB] 100 mg PO TID 11/24/15 08/12/18 08/12/18 08:00 History Bumetanide [Bumex 1 mg tab] 1 mg PO DAILY 08/12/18 08/12/18 08/12/18 08:00 History Doxazosin [Cardura] 4 mg PO QDAY 08/12/18 08/12/18 08/12/18 08:00 History Ferrous Gluconate 324 mg PO BID 08/12/18 08/12/18 08/12/18 08:00 History Exam - Constitutional Vitals: Temp Pulse Resp BP Pulse Ox 97.8 F 73 24 171/77 100 08/12/18 13:59 08/12/18 13:00 08/12/18 13:00 08/12/18 13:00 08/12/18 13:00 General appearance: Present: mild distress, well-nourished - EENT Eyes: Present: PERRL ENT: hearing intact, clear oral mucosa - Neck Neck: Present: supple, normal ROM - Respiratory Respiratory effort: normal Respiratory: bilateral: CTA - Cardiovascular Heart rate: 80 Rhythm: regular Heart Sounds: Present: S1 & S2. Absent: rub, click - Extremities Extremities: no ischemia, pulses intact, pulses symmetrical, No edema Extremity abnormal: edema Peripheral Pulses: within normal limits - Abdominal General gastrointestinal: Present: soft, non-tender, non-distended, normal bowel sounds Female genitourinary: Present: normal - Rectal Rectal Exam: deferred - Integumentary Integumentary: Present: clear, warm, dry - Musculoskeletal Musculoskeletal: gait normal, strength equal bilaterally - Psychiatric Psychiatric: appropriate mood/affect, intact judgment & insight - Neurologic Neurologic: CNII-XII intact, moves all extremities - Allied Health Allied health notes reviewed: nursing, case management Results - Labs CBC & Chem 7: 08/12/18 09:55 08/12/18 09:55 Labs: Laboratory Last Values WBC 4.9 K/mm3 (4.5-11.0) 08/12/18 09:55 RBC 2.97 M/mm3 (3.65-5.03) L 08/12/18 09:55 Hgb 8.2 gm/dl (10.1-14.3) L 08/12/18 09:55 Hct 25.1 % (30.3-42.9) L 08/12/18 09:55 MCV 85 fl (79-97) 08/12/18 09:55 MCH 28 pg (28-32) 08/12/18 09:55 MCHC 33 % (30-34) 08/12/18 09:55 RDW 18.4 % (13.2-15.2) H 08/12/18 09:55 Plt Count 233 K/mm3 (140-440) 08/12/18 09:55 Sodium 140 mmol/L (137-145) 08/12/18 09:55 Potassium 3.6 mmol/L (3.6-5.0) 08/12/18 09:55 Chloride 100.1 mmol/L (98-107) 08/12/18 09:55 Carbon Dioxide 29 mmol/L (22-30) 08/12/18 09:55 Anion Gap 15 mmol/L 08/12/18 09:55 BUN 45 mg/dL (7-17) H 08/12/18 09:55 Creatinine 1.8 mg/dL (0.7-1.2) H 08/12/18 09:55 Estimated GFR 33 ml/min 08/12/18 09:55 BUN/Creatinine Ratio 25 % 08/12/18 09:55 Glucose 102 mg/dL (65-100) H 08/12/18 09:55 Calcium 8.9 mg/dL (8.4-10.2) 08/12/18 09:55 Magnesium 1.90 mg/dL (1.7-2.3) 08/12/18 09:55 Total Bilirubin 0.20 mg/dL (0.1-1.2) 08/12/18 09:55 AST 22 units/L (5-40) 08/12/18 09:55 ALT 13 units/L (7-56) 08/12/18 09:55 Alkaline Phosphatase 81 units/L (35-129) 08/12/18 09:55 Troponin T 0.073 ng/mL (0.00-0.029) H 08/12/18 09:55 NT-Pro-B Natriuret Pep 4311 pg/mL (0-900) H 08/12/18 09:55 Total Protein 7.0 g/dL (6.3-8.2) 08/12/18 09:55 Albumin 3.1 g/dL (3.9-5) L 08/12/18 09:55 Albumin/Globulin Ratio 0.8 % 08/12/18 09:55 Triglycerides 46 mg/dL (2-149) 08/12/18 09:55 Cholesterol 96 mg/dL (50-199) 08/12/18 09:55 LDL Cholesterol Direct 55 mg/dL (50-130) 08/12/18 09:55 HDL Cholesterol 41 mg/dL (40-59) 08/12/18 09:55 Cholesterol/HDL Ratio 2.34 % 08/12/18 09:55 TSH 3.230 mlU/mL (0.270-4.200) 08/12/18 09:55 Free T4 1.53 ng/dL (0.76-1.46) H 08/12/18 09:55 Urine Color Yellow (Yellow) 08/12/18 11:12 Urine Turbidity Clear (Clear) 08/12/18 11:12 Urine pH 5.0 (5.0-7.0) 08/12/18 11:12 Ur Specific [place] 1.004 (1.003-1.030) 08/12/18 11:12 Urine Protein <15 mg/dl mg/dL (Negative) 08/12/18 11:12 Urine Glucose (UA) Neg mg/dL (Negative) 08/12/18 11:12 Urine Ketones Neg mg/dL (Negative) 08/12/18 11:12 Urine Blood Neg (Negative) 08/12/18 11:12 Urine Nitrite Neg (Negative) 08/12/18 11:12 Urine Bilirubin Neg (Negative) 08/12/18 11:12 Urine Urobilinogen < 2.0 mg/dL (<2.0) 08/12/18 11:12 Ur Leukocyte Esterase Sm (Negative) 08/12/18 11:12 Urine WBC (Auto) 1.0 /HPF (0.0-6.0) 08/12/18 11:12 Urine RBC (Auto) 2.0 /HPF (0.0-6.0) 08/12/18 11:12 U Epithel Cells (Auto) 2.0 /HPF (0-13.0) 08/12/18 11:12 Urine Mucus Few /HPF 08/12/18 11:12 Blood Type O POSITIVE 08/12/18 11:12 Antibody Screen Negative 08/12/18 11:12 Crossmatch See Detail 08/12/18 11:12 - Imaging and Cardiology EKG: report reviewed Chest x-ray: report reviewed Imaging and Cardiology: CXR FINDINGS: There is unchanged moderate cardiomegaly. Patient is status post median sternotomy. Mediastinal contours are unchanged. There is mild prominence of upper lobe pulmonary vasculature. The lungs are clear. There are no pleural effusion seen. There is no evidence of pneumothorax. IMPRESSION: Moderate cardiomegaly with mild prominence of upper lobe pulmonary vasculature. Assessment and Plan Advance Directives: Yes (Full code) VTE prophylaxis?: Chemical Plan of care discussed with patient/family: Yes - Patient Problems (1) CHF exacerbation Current Visit: Yes Status: Acute Qualifiers: Heart failure type: combined systolic and diastolic Qualified Code(s): I50.43 - Acute on chronic combined systolic (congestive) and diastolic (congestive) heart failure Plan to address problem: IV Lasix for now ECHO Cardiology consult (2) Symptomatic anemia Current Visit: Yes Status: Acute Plan to address problem: Transfuse 1 unit prbc (3) Chest pain Current Visit: Yes Status: Acute Qualifiers: Chest pain type: unspecified Qualified Code(s): R07.9 - Chest pain, unspecified Plan to address problem: Chest pain w/u Elevated Troponin Repeat Troponins Lexiscan in AM Cardiology consult (4) HTN (hypertension) Current Visit: Yes Status: Chronic Qualifiers: Hypertension type: essential hypertension Qualified Code(s): I10 - Essential (primary) hypertension Plan to address problem: Cont antihypertensives (5) IDDM (insulin dependent diabetes mellitus) Current Visit: Yes Status: Chronic Plan to address problem: cont insulin and coverage check a1c (6) DVT prophylaxis Current Visit: Yes Status: Acute Plan to address problem: On Lovenox and GI prophylaxis
[2018-08-12] MEDS ORDERED: NON-FORMULARY (Potassium Chloride [Klor-Con 10] 20 MEQ) PO SCH (15:45)
[2018-08-12] MEDS ORDERED: FERROUS GLUCONATE 324 MG PO SCH (15:45)
[2018-08-12] MEDS ORDERED: PLAVIX PO SCH (16:00)
[2018-08-12] MEDS: BUMEX PO SCH (17:23)
[2018-08-12] MEDS: K-DUR PO SCH (17:24)
[2018-08-12] MEDS: CARDURA PO SCH (17:24)
[2018-08-12] MEDS: COREG PO SCH (17:24)
[2018-08-12] MEDS: REQUIP PO SCH (17:24)
[2018-08-12] MEDS ORDERED: NACL 0.9% 500 ML 500 ML ONE (17:33)
[2018-08-12] MEDS ORDERED: ZOFRAN IV PRN ×2 (17:37→17:45)
[2018-08-12] MEDS ORDERED: PERCOCET 5/325 PO PRN (17:37)
[2018-08-12] MEDS ORDERED: DILAUDID IV PRN (17:37)
[2018-08-12] MEDS ORDERED: SODIUM CHLORIDE FLUSH SYRINGE 10 ML IV PRN ×2 (17:37→17:45)
[2018-08-12] MEDS ORDERED: TYLENOL PO PRN ×2 (17:45→18:00)
[2018-08-12] MEDS: LASIX IV SCH (17:55)
[2018-08-12] MEDS ORDERED: NON-FORMULARY (Clonidine Hcl [Catapres] 0.3 MG) PO SCH (20:00)
[2018-08-12] MEDS: CATAPRES PO SCH (20:55)
[2018-08-12] MEDS: APRESOLINE PO SCH (20:55)
[2018-08-12] MEDS: PEPCID PO SCH (20:55)
[2018-08-12] MEDS: LANTUS SUB-Q SCH (21:01)
[2018-08-12] MEDS: SODIUM CHLORIDE FLUSH SYRINGE 10 ML IV SCH ×2 (21:01→21:02)
[2018-08-12] MEDS: FERGON PO SCH (21:01)
[2018-08-12] MEDS: HumaLOG SUB-Q SCH (22:29)
[2018-08-13] MEDS: APRESOLINE IV PRN (02:21)
[2018-08-13] MEDS: LASIX IV SCH ×2 (05:01→18:18)
[2018-08-13] MEDS ORDERED: APRESOLINE IV ONE (06:07)
[2018-08-13 06:41] LABS: Basophils # (Auto) 0.1 K/mm3 (0.0-0.1); Basophils % (Auto) 1.4 % (0.0-1.8); Eosinophils # (Auto) 0.1 K/mm3 (0.0-0.4); Eosinophils % (Auto) 1.5 % (0.0-4.3); Hemoglobin 9.7 gm/dl (10.1-14.3); Lymphocytes % (Auto) 19.8 % (13.4-35.0); Mean Corpuscular HGB Conc 33 % (30-34); Mean Corpuscular Volume 84 fl (79-97); Monocytes # (Auto) 0.7 K/mm3 (0.0-0.8); Monocytes % (Auto) 14.9 % (0.0-7.3); Platelet Count 244 K/mm3 (140-440); Red Blood Count 3.44 M/mm3 (3.65-5.03); Red Cell Distribution Width 17.3 % (13.2-15.2)
[2018-08-13 07:02] LABS: Calcium 9.2 mg/dL (8.4-10.2)
--- NOTE | 2018-08-13 07:37 | Progress Note ---
Assessment and Plan Assessment and plan: 72-year-old female with history of congestive heart failure, hypertension, diabetes and chronic kidney disease comes in for increasing shortness of breath, chest discomfort and palpitations. Patient developed shortness of breath since last night. More so on lying down and on minimal exertion. Chest discomfort or 5 on a scale of 1-10. Intermittent in nature. Says discomfort nonradiating in nature. No palpitations no diaphoresis. Patient has class IV NYHA symptoms. Diastolic CHF exacerbation - Echo, continue IV Lasix - Chest x-ray shows cardiomegaly with vascular addition Diabetes with hyperglycemia - On sliding scale insulin - A culture, ADA diet, adjust insulin as needed Chronic kidney disease - We'll monitor Hypertension - Resume all medications - We will monitor and adjust as needed NSTEMI - Mild elevation in troponin may be due to CHF and chronic renal failure - Lexiscan stress test, cardiology consulted Moderate malnutrition - Nutrition consult Anemia; transfused 1 unit of PRBC DVT prophylaxis - On heparin Disposition - Per clinical course History Interval history: Patient was seen and evaluated this morning, no nursing issues reported overnight. Shortness of breath is getting better. Hospitalist Physical - Physical exam Narrative exam: Not in cardiopulmonary distress. The patient is morbidly obese. Vital signs as documented. Head exam is unremarkable. No scleral icterus . Neck is without jugular venous distension, thyromegaly, or carotid bruits. Lungs are clear to auscultation. Cardiac exam reveals regular rate and Rhythm. First and second heart sounds normal. No murmurs, rubs or gallops. Abdominal exam reveals normal bowel sounds, no masses, no organomegaly and no aortic enlargement. Extremities +2 pedal and pretibial edema. GENERATOR TECHNICIAN: Alert and oriented 3. No focal weakness. - Constitutional Vitals: Temp Pulse Resp BP Pulse Ox 98.2 F 57 L 20 176/81 95 08/13/18 01:51 08/12/18 20:03 08/13/18 01:51 08/13/18 06:43 08/12/18 20:03 General appearance: Present: mild distress, well-nourished Results - Labs CBC & Chem 7: 08/13/18 06:19 08/13/18 06:19 Labs: Laboratory Last Values WBC 5.0 K/mm3 (4.5-11.0) 08/13/18 06:19 RBC 3.44 M/mm3 (3.65-5.03) L 08/13/18 06:19 Hgb 9.7 gm/dl (10.1-14.3) L 08/13/18 06:19 Hct 29.0 % (30.3-42.9) L 08/13/18 06:19 MCV 84 fl (79-97) 08/13/18 06:19 MCH 28 pg (28-32) 08/13/18 06:19 MCHC 33 % (30-34) 08/13/18 06:19 RDW 17.3 % (13.2-15.2) H 08/13/18 06:19 Plt Count 244 K/mm3 (140-440) 08/13/18 06:19 Lymph % (Auto) 19.8 % (13.4-35.0) 08/13/18 06:19 [place] % (Auto) 14.9 % (0.0-7.3) H 08/13/18 06:19 Eos % (Auto) 1.5 % (0.0-4.3) 08/13/18 06:19 Baso % (Auto) 1.4 % (0.0-1.8) 08/13/18 06:19 Lymph # 1.0 K/mm3 (1.2-5.4) L 08/13/18 06:19 [place] # 0.7 K/mm3 (0.0-0.8) 08/13/18 06:19 Eos # 0.1 K/mm3 (0.0-0.4) 08/13/18 06:19 Baso # 0.1 K/mm3 (0.0-0.1) 08/13/18 06:19 Seg Neutrophils % 62.4 % (40.0-70.0) 08/13/18 06:19 Seg Neutrophils # 3.1 K/mm3 (1.8-7.7) 08/13/18 06:19 Sodium 141 mmol/L (137-145) 08/13/18 06:19 Potassium 3.5 mmol/L (3.6-5.0) L 08/13/18 06:19 Chloride 100.5 mmol/L (98-107) 08/13/18 06:19 Carbon Dioxide 28 mmol/L (22-30) 08/13/18 06:19 Anion Gap 16 mmol/L 08/13/18 06:19 BUN 41 mg/dL (7-17) H 08/13/18 06:19 Creatinine 1.7 mg/dL (0.7-1.2) H 08/13/18 06:19 Estimated GFR 36 ml/min 08/13/18 06:19 BUN/Creatinine Ratio 24 % 08/13/18 06:19 Glucose 126 mg/dL (65-100) H 08/13/18 06:19 POC Glucose 225 (70-105) H 08/12/18 21:45 Calcium 9.2 mg/dL (8.4-10.2) 08/13/18 06:19 Magnesium 1.90 mg/dL (1.7-2.3) 08/12/18 09:55 Total Bilirubin 0.20 mg/dL (0.1-1.2) 08/13/18 06:19 AST 25 units/L (5-40) 08/13/18 06:19 ALT 14 units/L (7-56) 08/13/18 06:19 Alkaline Phosphatase 93 units/L (35-129) 08/13/18 06:19 Troponin T 0.082 ng/mL (0.00-0.029) H 08/12/18 22:30 NT-Pro-B Natriuret Pep 4311 pg/mL (0-900) H 08/12/18 09:55 Total Protein 7.4 g/dL (6.3-8.2) 08/13/18 06:19 Albumin 3.0 g/dL (3.9-5) L 08/13/18 06:19 Albumin/Globulin Ratio 0.7 % 08/13/18 06:19 Triglycerides 46 mg/dL (2-149) 08/12/18 09:55 Cholesterol 96 mg/dL (50-199) 08/12/18 09:55 LDL Cholesterol Direct 55 mg/dL (50-130) 08/12/18 09:55 HDL Cholesterol 41 mg/dL (40-59) 08/12/18 09:55 Cholesterol/HDL Ratio 2.34 % 08/12/18 09:55 TSH 3.230 mlU/mL (0.270-4.200) 08/12/18 09:55 Free T4 1.53 ng/dL (0.76-1.46) H 08/12/18 09:55 Urine Color Yellow (Yellow) 08/12/18 11:12 Urine Turbidity Clear (Clear) 08/12/18 11:12 Urine pH 5.0 (5.0-7.0) 08/12/18 11:12 Ur Specific [place] 1.004 (1.003-1.030) 08/12/18 11:12 Urine Protein <15 mg/dl mg/dL (Negative) 08/12/18 11:12 Urine Glucose (UA) Neg mg/dL (Negative) 08/12/18 11:12 Urine Ketones Neg mg/dL (Negative) 08/12/18 11:12 Urine Blood Neg (Negative) 08/12/18 11:12 Urine Nitrite Neg (Negative) 08/12/18 11:12 Urine Bilirubin Neg (Negative) 08/12/18 11:12 Urine Urobilinogen < 2.0 mg/dL (<2.0) 08/12/18 11:12 Ur Leukocyte Esterase Sm (Negative) 08/12/18 11:12 Urine WBC (Auto) 1.0 /HPF (0.0-6.0) 08/12/18 11:12 Urine RBC (Auto) 2.0 /HPF (0.0-6.0) 08/12/18 11:12 U Epithel Cells (Auto) 2.0 /HPF (0-13.0) 08/12/18 11:12 Urine Mucus Few /HPF 08/12/18 11:12 Blood Type O POSITIVE 08/12/18 11:12 Antibody Screen Negative 08/12/18 11:12 Crossmatch See Detail 08/12/18 11:12
[2018-08-13] MEDS: HumaLOG SUB-Q SCH ×4 (09:02→22:10)
[2018-08-13] MEDS: REQUIP PO SCH (09:39)
[2018-08-13] MEDS: PLAVIX PO SCH (09:39)
[2018-08-13] MEDS: BUMEX PO SCH (09:39)
[2018-08-13] MEDS: K-DUR PO SCH (09:40)
[2018-08-13] MEDS: IMDUR PO SCH (09:40)
[2018-08-13] MEDS: APRESOLINE PO SCH ×3 (09:41→22:09)
[2018-08-13] MEDS: CARDURA PO SCH (09:41)
[2018-08-13] MEDS: COREG PO SCH (09:41)
[2018-08-13] MEDS: CATAPRES PO SCH ×3 (09:42→22:09)
[2018-08-13] MEDS: PEPCID PO SCH (09:42)
[2018-08-13] MEDS: FERGON PO SCH ×2 (09:43→22:07)
--- NOTE | 2018-08-13 11:34 | Consultation ---
Addendum entered and electronically signed by SUZANNE HIGGINS MD 08/13/18 15:28: F/U Echo. Awaiting Lexistress nuclear scan in AM for further cardiac evaluation. Original Note: History of Present Illness Consult date: 08/13/18 Requesting physician: DELISA PATRICK Consult reason: congestive heart failure History of present illness: The pt is a 72 YO female with a past medical history of CAD s/p CABG, CKD, CVI, BLE edema, HTN, HLP, DM, paroxysmal atrial tachycardia, obesity. She is followed in our office by Dr. Bowers. She presented with complaints of progressively worsening SOB, PETIT, orthopnea and palpitations for several days prior to arrival. She also noted elevated BPs for one day prior to arrival. She denies any chest pain, n/v, diaphoresis, dizziness or syncope. She reports compliance with her home medication regimen, including bumex 1mg BID. Echo done 05/2018 showed EF 55-60%, grade II diastolic dysfunction, mild to mod LVH, RV mod dilated, LA severely dilated, RA severely dilate, mild MR, severe T R, mod VT, RVSP 34mmHg. Pt underwent CABG x 2 in 1994 (ROBERTS to LAD and saphenous vein graft to mid o btuse marginal). Lexiscan MPI stress test done 05/2017 was negative for significant ischemia, EF 57%. Past History Past Medical History: CAD, diabetes, hypertension, hyperlipidemia Past Surgical History: CABG Social history: denies: smoking, alcohol abuse, prescription drug abuse Medications and Allergies Allergies Allergy/AdvReac Type Severity Reaction Status Date / Time nitroglycerin AdvReac Shortness Verified 11/24/15 08:48 of Breath Home Medications Medication Instructions Recorded Confirmed Last Taken Type Isosorbide Mononitrate [Isosorbide 120 mg PO DAILY 09/12/13 08/12/18 08/12/18 08:00 History Mononitrate ER] Ropinirole HCl 1 tab PO DAILY 09/12/13 08/12/18 08/11/18 21:00 History Carvedilol [Coreg] 25 mg PO DAILY 11/24/15 08/12/18 08/12/18 08:00 History Clonidine HCl [Catapres] 0.3 mg PO TID 11/24/15 08/12/1819 08:00 History Clopidogrel Bisulfate [Plavix] 75 mg PO DAILY 11/24/15 08/12/18 08/12/18 08:00 History Oxaprozin 900 mg PO BID 11/24/15 08/12/18 08/12/18 08:00 History Potassium Chloride [Klor-Con 10] 20 meq PO DAILY 11/24/15 08/12/18 08/12/18 08:00 History hydrALAZINE [Apresoline TAB] 100 mg PO TID 11/24/15 08/12/18 08/12/18 08:00 History Bumetanide [Bumex 1 mg tab] 1 mg PO DAILY 08/12/18 08/12/18 08/12/18 08:00 History Doxazosin [Cardura] 4 mg PO QDAY 08/12/18 08/12/18 08/12/18 08:00 History Ferrous Gluconate 324 mg PO BID 08/12/18 08/12/18 08/12/18 08:00 History Active Meds: Active Medications Acetaminophen (Tylenol) 650 mg PO Q4H PRN PRN Reason: Pain MILD(1-3)/Fever >100.5/REILLY Bumetanide (Bumex) 1 mg PO DAILY [facility] Last Admin: 08/13/18 09:39 Dose: 1 mg Documented by: Carvedilol (Coreg) 25 mg PO DAILY [facility] Last Admin: 08/13/18 09:41 Dose: 25 mg Documented by: Clonidine HCl (Catapres) 0.3 mg PO TID [facility] Last Admin: 08/13/18 09:42 Dose: 0.3 mg Documented by: Clopidogrel Bisulfate (Plavix) 75 mg PO DAILY [facility] Last Admin: 08/13/18 09:39 Dose: 75 mg Documented by: Doxazosin Mesylate (Cardura) 4 mg PO QDAY [facility] Last Admin: 08/13/18 09:41 Dose: 4 mg Documented by: Famotidine (Pepcid) 20 mg PO DAILY [facility] Last Admin: 08/13/18 09:42 Dose: 20 mg Documented by: Ferrous Gluconate (Fergon) 324 mg PO BID [facility] Last Admin: 08/13/18 09:43 Dose: 324 mg Documented by: Furosemide (Lasix) 40 mg IV 0600,1800 [facility] Last Admin: 08/13/18 05:01 Dose: 40 mg Documented by: Hydralazine HCl (Apresoline) 100 mg PO TID [facility] Last Admin: 08/13/18 09:41 Dose: 100 mg Documented by: Hydralazine HCl (Apresoline) 5 mg IV Q6HR PRN PRN Reason: Hypertension Last Admin: 08/13/18 02:21 Dose: 5 mg Documented by: Hydromorphone HCl (Dilaudid) 0.5 mg IV Q3H PRN PRN Reason: Pain , Severe (7-10) Insulin Glargine (Lantus) 25 units SUB-Q QHS [facility] Last Admin: 08/12/18 21:01 Dose: 25 units Documented by: Insulin Human Lispro (Humalog) 0 unit SUB-Q ACHS [facility]; Protocol Last Admin: 08/13/18 09:02 Dose: Not Given Documented by: Isosorbide Mononitrate (Imdur) 120 mg PO DAILY [facility] Last Admin: 08/13/18 09:40 Dose: 120 mg Documented by: Miscellaneous Medication (Oxaprozin [Oxaprozin]) 900 mg PO BID [facility] Ondansetron HCl (Zofran) 4 mg IV Q8H PRN PRN Reason: Nausea And Vomiting Oxycodone/Acetaminophen (Percocet 5/325) 1 tab PO Q6H PRN PRN Reason: Pain, Moderate (4-6) Potassium Chloride (K-Dur) 20 meq PO DAILY [facility] Last Admin: 08/13/18 09:40 Dose: 20 meq Documented by: Ropinirole HCl (Requip) 1 mg PO DAILY [facility] Last Admin: 08/13/18 09:39 Dose: 1 mg Documented by: Sodium Chloride (Sodium Chloride Flush Syringe 10 Ml) 10 ml IV BID [facility] Last Admin: 08/12/18 21:01 Dose: 10 ml Documented by: Sodium Chloride (Sodium Chloride Flush Syringe 10 Ml) 10 ml IV PRN PRN PRN Reason: LINE FLUSH Sodium Chloride (Sodium Chloride Flush Syringe 10 Ml) 10 ml IV BID [facility] Last Admin: 08/12/18 21:02 Dose: Not Given Documented by: Sodium Chloride (Sodium Chloride Flush Syringe 10 Ml) 10 ml IV PRN PRN PRN Reason: LINE FLUSH Review of Systems Constitutional: no fever, no chills, no sweats Ears, nose, mouth and throat: no ear pain, no nose pain, no sinus pressure, no sinus pain Cardiovascular: orthopnea, palpitations, edema, shortness of breath, dyspnea on exertion, paroxysmal nocturnal dyspnea, high blood pressure, leg edema, no chest pain, no syncope, no lightheadedness Respiratory: shortness of breath, dyspnea on exertion, no cough, no congestion, no wheezing, no pain on inspiration Gastrointestinal: no abdominal pain, no nausea, no vomiting, no diarrhea, no constipation, no change in bowel habits Genitourinary Female: no pelvic pain, no flank pain, no dysuria, no urinary frequency, no urgency Musculoskeletal: no neck stiffness, no neck pain, no shooting arm pain, no arm numbness/tingling, no low back pain, no shooting leg pain Integumentary: no rash, no pruritis, no redness, no sores, no wounds Neurological: no head injury, no paralysis, no weakness, no parathesias, no numbness, no tingling, no seizures, no syncope Psychiatric: no anxiety Endocrine: no cold intolerance, no heat intolerance Hematologic/Lymphatic: no easy bruising, no easy bleeding Allergic/Immunologic: no urticaria, no wheezing Physical Examination Vital Signs Pulse Resp BP Pulse Ox 100 H 18 154/74 45 L 08/12/18 09:04 08/12/18 09:04 08/12/18 09:04 08/12/18 09:04 General appearance: no acute distress HEENT: Positive: PERRL, Normocephaly, Mucus Membranes Moist Neck: Positive: neck supple, trachea midline Cardiac: Positive: Reg Rate and Rhythm, S1/S2 Lungs: Positive: Decreased Breath Sounds Neuro: Positive: Grossly Intact Abdomen: Positive: Soft. Negative: Tender Skin: Negative: Wound Extremities: Present: +2 Edema (BLE) Results 08/13/18 06:19 08/13/18 06:19 Cardiac Enzymes 08/13/18 Range/Units 06:19 AST 25 (5-40) units/L CBC 08/13/18 Range/Units 06:19 WBC 5.0 (4.5-11.0) K/mm3 RBC 3.44 L (3.65-5.03) M/mm3 Hgb 9.7 L (10.1-14.3) gm/dl Hct 29.0 L (30.3-42.9) % Plt Count 244 (140-440) K/mm3 Lymph # 1.0 L (1.2-5.4) K/mm3 Price # 0.7 (0.0-0.8) K/mm3 Eos # 0.1 (0.0-0.4) K/mm3 Baso # 0.1 (0.0-0.1) K/mm3 Comprehensive Metabolic Panel 08/13/18 Range/Units 06:19 Sodium 141 (137-145) mmol/L Potassium 3.5 L (3.6-5.0) mmol/L Chloride 100.5 (98-107) mmol/L Carbon Dioxide 28 (22-30) mmol/L BUN 41 H (7-17) mg/dL Creatinine 1.7 H (0.7-1.2) mg/dL Glucose 126 H (65-100) mg/dL Calcium 9.2 (8.4-10.2) mg/dL AST 25 (5-40) units/L ALT 14 (7-56) units/L Alkaline Phosphatase 93 (35-129) units/L Total Protein 7.4 (6.3-8.2) g/dL Albumin 3.0 L (3.9-5) g/dL - Imaging and Cardiology Echo: report reviewed (05/2018 showed EF 55-60%, grade II diastolic dysfunction, mild to mod LVH, RV mod dilated, LA severely dilated, RA severely dilate, mild MR, severe TR, mod VT, RVSP 34mmHg.) EKG: report reviewed, image reviewed EKG interpretations - Telemetry EKG Rhythm: Sinus Rhythm - EKG Sinus rhythms and dysrhythmias: sinus rhythm Chamber hypertrophy or enlargement: left ventricular hypertro Repolarization changes or abnormalities: repolarization abn secondary to ventricular hypertrophy Assessment and Plan Agree with present cardiac management. Initiate remote telemetry. Monitor renal indices. Pt denies chest pain, minimal troponin elevation currently nonspecific. Will plan to reattempt stress test in AM pending orthopnea improves and BPs are more adequately controlled. NPO after MN. The patient has been seen in conjunction with Dr. Lynn who agrees with the assessment and plan of care. - Patient Problems (1) Acute heart failure with preserved ejection fraction Current Visit: Yes Status: Acute (2) Palpitations Current Visit: Yes Status: Acute (3) Accelerated hypertension Current Visit: Yes Status: Acute (4) Diabetes Current Visit: Yes Status: Chronic (5) CAD (coronary artery disease) Current Visit: Yes Status: Chronic (6) History of coronary artery bypass graft Current Visit: Yes Status: Chronic (7) CKD (chronic kidney disease) Current Visit: Yes Status: Chronic (8) Elevated troponin Current Visit: Yes Status: Acute (9) Chronic venous insufficiency Current Visit: Yes Status: Chronic (10) Obesity Current Visit: Yes Status: Chronic
[2018-08-13] MEDS ORDERED: AFLURIA QUAD 2018-2019 SYRINGE IM ONE (12:00)
[2018-08-13] MEDS: SODIUM CHLORIDE FLUSH SYRINGE 10 ML IV SCH ×2 (13:22→22:10)
[2018-08-13] MEDS: LANTUS SUB-Q SCH (22:11)
[2018-08-14] MEDS: SODIUM CHLORIDE FLUSH SYRINGE 10 ML IV SCH ×3 (01:24→21:34)
[2018-08-14 05:29] LABS: Basophils # (Auto) 0.1 K/mm3 (0.0-0.1); Basophils % (Auto) 1.2 % (0.0-1.8); Eosinophils # (Auto) 0.1 K/mm3 (0.0-0.4); Eosinophils % (Auto) 1.4 % (0.0-4.3); Hematocrit 29.5 % (30.3-42.9); Hemoglobin 9.6 gm/dl (10.1-14.3); Lymphocytes # (Auto) 1.1 K/mm3 (1.2-5.4); Lymphocytes % (Auto) 21.6 % (13.4-35.0); Mean Corpuscular HGB Conc 33 % (30-34); Mean Corpuscular Volume 85 fl (79-97); Monocytes # (Auto) 0.8 K/mm3 (0.0-0.8); Monocytes % (Auto) 14.9 % (0.0-7.3); Platelet Count 259 K/mm3 (140-440); Red Blood Count 3.47 M/mm3 (3.65-5.03); Red Cell Distribution Width 18.1 % (13.2-15.2)
[2018-08-14 05:39] LABS: Calcium 8.9 mg/dL (8.4-10.2)
[2018-08-14] MEDS: LASIX IV SCH ×2 (06:03→17:13)
--- NOTE | 2018-08-14 07:29 | Progress Note ---
Assessment and Plan Assessment and plan: 72-year-old female with history of congestive heart failure, hypertension, diabetes and chronic kidney disease, paroxysmal atrial Tachycardia comes in for increasing shortness of breath, chest discomfort and palpitations. Patient developed shortness of breath since last night. More so on lying down and on minimal exertion. Chest discomfort or 5 on a scale of 1-10. Intermittent in nature. Says discomfort nonradiating in nature. No palpitations no diaphoresis. Patient has class IV NYHA symptoms. Per cardiology documentation: Echo done 05/2018 showed EF 55-60%, grade II diastolic dysfunction, mild to mod LVH, RV mod dilated, LA severely dilated, RA severely dilate, mild MR, severe TR, mod [place], RVSP 34mmHg. Pt underwent CABG x 2 in 1994 (ROBERTS to LAD and saphenous vein graft to mid obtuse marginal). Lexiscan MPI stress test done 05/2017 was negative for significant ischemia, EF 57%. CXR: Moderate Cardiomegaly Diastolic CHF exacerbation - Echo pending, continue IV Lasix - Chest x-ray shows cardiomegaly with vascular addition - Stress test possible today Diabetes with hyperglycemia - On sliding scale insulin - A culture, ADA diet, adjust insulin as needed Chronic kidney disease STAGE 3 - We'll monitor Hypertension - Resume all medications - We will monitor and adjust as needed NSTEMI - Mild elevation in troponin may be due to CHF and chronic renal failure - Lexiscan stress test, cardiology consulted Moderate malnutrition - Nutrition consult Symptomatic Anemia; transfused 1 unit of PRBC, STool for occult blood -negative Paroxysmal Atrial Tachycardia CAD with Hx of CABG Chronic Venous Insufficiency Morbid Obesity: DVT prophylaxis - On heparin Disposition - Per clinical course History Interval history: Patient is seen today for: Shortness of breath and chest pain Seen and examined at bedside; 24hour events reviewed; nursing staff ; no adverse overnight events reported to me; Denies any chest pain, nausea, vomiting, diarrhea No fever noted blood pressure controlled Hospitalist Physical - Physical exam Narrative exam: VITAL SIGNS: Reviewed. GENERAL: The patient appeared well nourished and normally developed. Vital signs as documented. HEAD: No signs of head trauma. EYES: Pupils are equal. Extraocular motions intact. EARS: Hearing grossly intact. MOUTH: Oropharynx is normal. NECK: No adenopathy, no JVD. CHEST: Chest with clear breath sounds bilaterally. No wheezes, rales, or rhonchi. CARDIAC: Regular rate and rhythm. S1 and S2, without murmurs, gallops, or rubs. VASCULAR: +1 pitting edema bilateral lower extremity. Peripheral pulses normal and equal in all extremities. ABDOMEN: Soft, without detectable tenderness. No sign of distention. No rebound or guarding, and no masses palpated. Bowel Sounds normal. MUSCULOSKELETAL: Good range of motion of all major joints. Extremities without clubbing, cyanosis. +1 pitting edema bilateral lower extremity NEUROLOGIC EXAM: Alert and oriented x 3. No focal sensory or strength deficits. Speech normal. Follows commands. PSYCHIATRIC: Mood normal. SKIN: No rash or lesions. - Constitutional Vitals: Temp Pulse Resp BP Pulse Ox 98.6 F 44 L 18 176/73 95 08/14/18 01:59 08/14/18 02:42 08/14/18 01:59 08/14/18 01:59 08/14/18 01:55 General appearance: Present: mild distress, well-nourished Results - Labs CBC & Chem 7: 08/14/18 04:54 08/14/18 04:54 Labs: Laboratory Last Values WBC 5.2 K/mm3 (4.5-11.0) 08/14/18 04:54 RBC 3.47 M/mm3 (3.65-5.03) L 08/14/18 04:54 Hgb 9.6 gm/dl (10.1-14.3) L 08/14/18 04:54 Hct 29.5 % (30.3-42.9) L 08/14/18 04:54 MCV 85 fl (79-97) 08/14/18 04:54 MCH 28 pg (28-32) 08/14/18 04:54 MCHC 33 % (30-34) 08/14/18 04:54 RDW 18.1 % (13.2-15.2) H 08/14/18 04:54 Plt Count 259 K/mm3 (140-440) 08/14/18 04:54 Lymph % (Auto) 21.6 % (13.4-35.0) 08/14/18 04:54 [place] % (Auto) 14.9 % (0.0-7.3) H 08/14/18 04:54 Eos % (Auto) 1.4 % (0.0-4.3) 08/14/18 04:54 Baso % (Auto) 1.2 % (0.0-1.8) 08/14/18 04:54 Lymph # 1.1 K/mm3 (1.2-5.4) L 08/14/18 04:54 [place] # 0.8 K/mm3 (0.0-0.8) 08/14/18 04:54 Eos # 0.1 K/mm3 (0.0-0.4) 08/14/18 04:54 Baso # 0.1 K/mm3 (0.0-0.1) 08/14/18 04:54 Seg Neutrophils % 60.9 % (40.0-70.0) 08/14/18 04:54 Seg Neutrophils # 3.2 K/mm3 (1.8-7.7) 08/14/18 04:54 Sodium 143 mmol/L (137-145) 08/14/18 04:54 Potassium 3.6 mmol/L (3.6-5.0) 08/14/18 04:54 Chloride 101.2 mmol/L (98-107) 08/14/18 04:54 Carbon Dioxide 27 mmol/L (22-30) 08/14/18 04:54 Anion Gap 18 mmol/L 08/14/18 04:54 BUN 39 mg/dL (7-17) H 08/14/18 04:54 Creatinine 1.8 mg/dL (0.7-1.2) H 08/14/18 04:54 Estimated GFR 33 ml/min 08/14/18 04:54 BUN/Creatinine Ratio 22 % 08/14/18 04:54 Glucose 103 mg/dL (65-100) H 08/14/18 04:54 POC Glucose 180 (70-105) H 08/13/18 21:27 Calcium 8.9 mg/dL (8.4-10.2) 08/14/18 04:54 Magnesium 1.90 mg/dL (1.7-2.3) 08/12/18 09:55 Total Bilirubin 0.20 mg/dL (0.1-1.2) 08/13/18 06:19 AST 25 units/L (5-40) 08/13/18 06:19 ALT 14 units/L (7-56) 08/13/18 06:19 Alkaline Phosphatase 93 units/L (35-129) 08/13/18 06:19 Troponin T 0.082 ng/mL (0.00-0.029) H 08/12/18 22:30 NT-Pro-B Natriuret Pep 4311 pg/mL (0-900) H 08/12/18 09:55 Total Protein 7.4 g/dL (6.3-8.2) 08/13/18 06:19 Albumin 3.0 g/dL (3.9-5) L 08/13/18 06:19 Albumin/Globulin Ratio 0.7 % 08/13/18 06:19 Triglycerides 46 mg/dL (2-149) 08/12/18 09:55 Cholesterol 96 mg/dL (50-199) 08/12/18 09:55 LDL Cholesterol Direct 55 mg/dL (50-130) 08/12/18 09:55 HDL Cholesterol 41 mg/dL (40-59) 08/12/18 09:55 Cholesterol/HDL Ratio 2.34 % 08/12/18 09:55 TSH 3.230 mlU/mL (0.270-4.200) 08/12/18 09:55 Free T4 1.53 ng/dL (0.76-1.46) H 08/12/18 09:55 Urine Color Yellow (Yellow) 08/12/18 11:12 Urine Turbidity Clear (Clear) 08/12/18 11:12 Urine pH 5.0 (5.0-7.0) 08/12/18 11:12 Ur Specific [place] 1.004 (1.003-1.030) 08/12/18 11:12 Urine Protein <15 mg/dl mg/dL (Negative) 08/12/18 11:12 Urine Glucose (UA) Neg mg/dL (Negative) 08/12/18 11:12 Urine Ketones Neg mg/dL (Negative) 08/12/18 11:12 Urine Blood Neg (Negative) 08/12/18 11:12 Urine Nitrite Neg (Negative) 08/12/18 11:12 Urine Bilirubin Neg (Negative) 08/12/18 11:12 Urine Urobilinogen < 2.0 mg/dL (<2.0) 08/12/18 11:12 Ur Leukocyte Esterase Sm (Negative) 08/12/18 11:12 Urine WBC (Auto) 1.0 /HPF (0.0-6.0) 08/12/18 11:12 Urine RBC (Auto) 2.0 /HPF (0.0-6.0) 08/12/18 11:12 U Epithel Cells (Auto) 2.0 /HPF (0-13.0) 08/12/18 11:12 Urine Mucus Few /HPF 08/12/18 11:12 Blood Type O POSITIVE 08/12/18 11:12 Antibody Screen Negative 08/12/18 11:12 Crossmatch See Detail 08/12/18 11:12 Nutrition/Malnutrition Assess - Dietary Evaluation Nutrition/Malnutrition Findings: Nutrition Notes Start: 08/13/18 14:59 Freq: Status: Active Protocol: Document 08/13/18 14:59 RM (Rec: 08/13/18 15:06 RM [id number]) Nutrition Notes Need for Assessment generated from: MD Order Initial or Follow up Brief Note Current Diagnosis Diabetes Hypertension Heart Failure Other Pertinent Diagnosis CHF exacerbation, CKD Current Diet Consistent CHO Labs/Tests Reviewed Pertinent Medications Lasix Height 5 ft 2 in Weight 105 kg Usual Body Weight 101.36 kg [place] Body Weight (kg) 50.00 BMI 42.3 Subjective/Other Information Consulted for malnutrition. Pt stated that before admission her appetite was okay and that she ate 1-2 meals daily. Stated that her appetite is better now and that she ate most of her dinner yesterday. Noted breakfast at beside w/100% eaten. Admitted to constipation since last Monday or Monday. Stated UBW was 223 lbs last . No temporal or orbital wasting . Burn Absent Trauma Absent Nutrition Intervention Follow-Up By: 08/15/18 Additional Comments Follow for stable intakes
[2018-08-14] MEDS: HumaLOG SUB-Q SCH ×4 (07:44→21:43)
[2018-08-14] MEDS: CATAPRES PO SCH ×3 (08:15→21:33)
[2018-08-14] MEDS: APRESOLINE PO SCH ×3 (08:15→21:33)
[2018-08-14] MEDS ORDERED: LEXISCAN IV ONE ×2 (08:25→08:27)
--- NOTE | 2018-08-14 09:53 | Progress Note ---
Assessment and Plan Cont present cardiac management. Proceed with lexiscan MPI stress test. Await findings. The patient has been seen in conjunction with Dr. Lynn who agrees with the assessment and plan of care. - Patient Problems (1) Acute heart failure with preserved ejection fraction Current Visit: Yes Status: Acute (2) Palpitations Current Visit: Yes Status: Acute (3) Accelerated hypertension Current Visit: Yes Status: Acute (4) Diabetes Current Visit: Yes Status: Chronic (5) CAD (coronary artery disease) Current Visit: Yes Status: Chronic (6) History of coronary artery bypass graft Current Visit: Yes Status: Chronic (7) CKD (chronic kidney disease) Current Visit: Yes Status: Chronic (8) Elevated troponin Current Visit: Yes Status: Acute (9) Chronic venous insufficiency Current Visit: Yes Status: Chronic (10) Obesity Current Visit: Yes Status: Chronic Subjective Date of service: 08/14/18 Principal diagnosis: HF; palpitations Interval history: pt for stress test today, no current cardiac complaints. tele reviewed- SR overnight. Objective Last Vital Signs Temp 98.6 F 08/14/18 01:59 Pulse 72 08/14/18 07:41 Resp 18 08/14/18 01:59 BP 203/79 08/14/18 09:25 Pulse Ox 93 08/14/18 07:41 - Physical Examination General: No Apparent Distress HEENT: Positive: PERRL, Normocephaly, Mucus Membranes Moist Neck: Positive: neck supple, trachea midline Cardiac: Positive: Reg Rate and Rhythm, S1/S2 Lungs: Positive: clear to auscultation Neuro: Positive: Grossly Intact Abdomen: Positive: Soft. Negative: Tender Skin: Negative: Wound Extremities: Present: +2 Edema (BLE) - Labs and Meds CBC 08/14/18 Range/Units 04:54 WBC 5.2 (4.5-11.0) K/mm3 RBC 3.47 L (3.65-5.03) M/mm3 Hgb 9.6 L (10.1-14.3) gm/dl Hct 29.5 L (30.3-42.9) % Plt Count 259 (140-440) K/mm3 Lymph # 1.1 L (1.2-5.4) K/mm3 [place] # 0.8 (0.0-0.8) K/mm3 Eos # 0.1 (0.0-0.4) K/mm3 Baso # 0.1 (0.0-0.1) K/mm3 Comprehensive Metabolic Panel 08/14/18 Range/Units 04:54 Sodium 143 (137-145) mmol/L Potassium 3.6 (3.6-5.0) mmol/L Chloride 101.2 (98-107) mmol/L Carbon Dioxide 27 (22-30) mmol/L BUN 39 H (7-17) mg/dL Creatinine 1.8 H (0.7-1.2) mg/dL Glucose 103 H (65-100) mg/dL Calcium 8.9 (8.4-10.2) mg/dL - Imaging and Cardiology EKG: report reviewed, image reviewed Echo: report reviewed (05/2018 showed EF 55-60%, grade II diastolic dysfunction, mild to mod LVH, RV mod dilated, LA severely dilated, RA severely dilate, mild MR, severe TR, mod [place], RVSP 34mmHg.) - Telemetry EKG Rhythm: Sinus Rhythm - EKG Sinus rhythms and dysrhythmias: sinus rhythm Chamber hypertrophy or enlargement: left ventricular hypertro Repolarization changes or abnormalities: repolarization abn secondary to ventricular hypertrophy
[2018-08-14] MEDS: FERGON PO SCH ×2 (10:12→21:33)
[2018-08-14] MEDS: IMDUR PO SCH (10:12)
[2018-08-14] MEDS: CARDURA PO SCH (10:13)
[2018-08-14] MEDS: PEPCID PO SCH (10:13)
[2018-08-14] MEDS: K-DUR PO SCH (10:13)
[2018-08-14] MEDS: PLAVIX PO SCH (10:14)
[2018-08-14] MEDS: REQUIP PO SCH (10:14)
[2018-08-14] MEDS: COREG PO SCH (10:14)
[2018-08-14] MEDS: SENOKOT S PO PRN (14:33)
--- NOTE | 2018-08-14 21:20 | Treadmill Report ---
PROCEDURE: Single-isotope dual study myocardial perfusion scan. AGE: 72 SEX: Female. Seen and dictated [facility]. [facility]. The patient received 10 mCi of technetium 99m Myoview intravenously under resting conditions. Resting myocardial perfusion scan was done. Subsequently, the patient underwent Lexiscan stress test as per the protocol. During Lexiscan stress, the patient received 28 mCi of technetium 99m Myoview intravenously. After 30-60 minutes, post stress images were done. Computerized reconstruction image was performed for analysis. The post-stress images revealed uniform distribution of the radiopharmaceutical in the left ventricular myocardium. Cinematic display of the gated study did not reveal any wall motion abnormality. The left ventricular ejection fraction was normal and was calculated to be 65%. The resting images were normal. CONCLUSION: 1. Normal resting and stress myocardial perfusion scan images after the patient underwent Lexiscan stress nuclear scan. 2. No wall motion abnormality. 3. Normal left ventricular ejection fraction of 65%. JOB# [id number] [facility]
[2018-08-14] MEDS: LANTUS SUB-Q SCH (21:35)
[2018-08-15] MEDS: APRESOLINE IV PRN (02:23)
[2018-08-15] MEDS: SENOKOT S PO PRN (02:24)
[2018-08-15] MEDS ORDERED: APRESOLINE IV PRN (04:23)
[2018-08-15] MEDS: LASIX IV SCH (05:40)
[2018-08-15] MEDS: HumaLOG SUB-Q SCH ×2 (08:25→11:45)
[2018-08-15] MEDS: APRESOLINE PO SCH (08:29)
[2018-08-15] MEDS: CATAPRES PO SCH (08:29)
[2018-08-15] MEDS: FERGON PO SCH (09:45)
[2018-08-15] MEDS: K-DUR PO SCH (09:45)
[2018-08-15] MEDS: PLAVIX PO SCH (09:45)
[2018-08-15] MEDS: REQUIP PO SCH (09:46)
[2018-08-15] MEDS: PEPCID PO SCH (09:46)
[2018-08-15] MEDS: IMDUR PO SCH (09:49)
[2018-08-15] MEDS ORDERED: OXAPROZIN PO SCH (10:00)
[2018-08-15] MEDS: COREG PO SCH (10:04)
[2018-08-15] MEDS: SODIUM CHLORIDE FLUSH SYRINGE 10 ML IV SCH (10:04)
[2018-08-15] MEDS: CARDURA PO SCH (10:04)
[2018-08-15 10:05] VITALS: BP 140/56
--- NOTE | 2018-08-15 10:30 | Discharge Summary ---
Providers - Providers Date of Admission: 08/12/18 12:17 Attending physician: RHONDA BERG MD 08/12/18 17:37 Consult to Physician [CONS] Routine Comment: called answ. serv. /grisel Consulting Provider: THANIA TENORIO Physician Instructions: Reason For Exam: chf exacerbation 08/13/18 07:41 Consult to Dietitian/Nutrition [CONS] Routine Physician Instructions: Reason For Exam: Reason for Consult: Malnutrition Primary care physician: ROXANNA ÁLVAREZ Hospitalization Reason for admission: chest pain Condition: Stable Hospital course: 72-year-old female with history of congestive heart failure, hypertension, diabetes and chronic kidney disease, paroxysmal atrial Tachycardia comes in for increasing shortness of breath, chest discomfort and palpitations. Patient developed shortness of breath since last night. More so on lying down and on minimal exertion. Chest discomfort or 5 on a scale of 1-10. Intermittent in na ture. Says discomfort nonradiating in nature. No palpitations no diaphoresis. Patient has class IV NYHA symptoms. Per cardiology documentation: Echo done 05/2018 showed EF 55-60%, grade II diastolic dysfunction, mild to mod LVH, RV mod dilated, LA severely dilated, RA severely dilate, mild MR, severe TR, mod SD, RVSP 34mmHg. Pt underwent CABG x 2 in 1994 (ROBERTS to LAD and saphenous vein graft to mid obtuse marginal). Lexiscan MPI stress test done 05/2017 was negative for significant ischemia, EF 57%. CXR: Moderate Cardiomegaly Diastolic CHF exacerbation Diabetes with hyperglycemia Chronic kidney disease STAGE 3 Hypertension NSTEMI Moderate malnutrition Symptomatic Anemia; transfused 1 unit of PRBC, STool for occult blood -negative Paroxysmal Atrial Tachycardia CAD with Hx of CABG Chronic Venous Insufficiency Morbid Obesity: Disposition: [id number]-06 HOME UNDER [facility] Time spent for discharge: 35 mins Core Measure Documentation - Palliative Care Palliative Care/ Comfort Measures: Not Applicable - Core Measures Any of the following diagnoses?: none Exam - Physical Exam Narrative exam: VITAL SIGNS: Reviewed. GENERAL: The patient appeared well nourished and normally developed. Vital signs as documented. HEAD: No signs of head trauma. EYES: Pupils are equal. Extraocular motions intact. EARS: Hearing grossly intact. MOUTH: Oropharynx is normal. NECK: No adenopathy, no JVD. CHEST: Chest with clear breath sounds bilaterally. No wheezes, rales, or rhonchi. CARDIAC: Regular rate and rhythm. S1 and S2, without murmurs, gallops, or rubs. VASCULAR: +1 pitting edema bilateral lower extremity. Peripheral pulses normal and equal in all extremities. ABDOMEN: Soft, without detectable tenderness. No sign of distention. No rebound or guarding, and no masses palpated. Bowel Sounds normal. MUSCULOSKELETAL: Good range of motion of all major joints. Extremities without clubbing, cyanosis. +1 pitting edema bilateral lower extremity NEUROLOGIC EXAM: Alert and oriented x 3. No focal sensory or strength deficits. Speech normal. Follows commands. PSYCHIATRIC: Mood normal. SKIN: No rash or lesions. - Constitutional Vitals: Temp Pulse Resp BP Pulse Ox 98.7 F 65 20 140/56 96 08/15/18 07:39 08/15/18 10:04 08/15/18 08:44 08/15/18 10:04 08/15/18 08:44 Plan Activity: advance as tolerated, fall precautions Diet: low salt Special Instructions: record daily weights, record daily BP diary, record blood sugar diary, physical therapy, occupational therapy Follow up with: ROXANNA ÁLVAREZ [Primary Care Provider] - 3-5 Days PADDY LARKIN MD [Staff Physician] - 7 Days GIULIANA VITALE MD [Staff Physician] - 7 Days Prescriptions: Insulin Glargine,Hum.rec.anlog [Lantus] 15 units SQ QHS 30 Days vial Bumetanide [Bumex 1 mg tab] 1 mg PO DAILY #30 tab Other Discharge Orders: Glucometer supplies[Amb] Location: None Selected Glucometer (Amb) Location: None Selected
--- NOTE | 2018-08-15 10:32 | Progress Note ---
Assessment and Plan S/p lexiscan MPI stress test yesterday which was negative. Currently stable cardiac status. Pt may discharge home from cardiology standpoin t. At discharge recommend conversion of IV lasix to home PO bumex 1mg BID. Recommend follow up in our office with Dr. Bowers within 3-5 days of hospital discharge ([phone]). The patient has been seen in conjunction with Dr. Lynn who agrees with the assessment and plan of care. - Patient Problems (1) Acute heart failure with preserved ejection fraction Current Visit: Yes Status: Acute (2) Palpitations Current Visit: Yes Status: Acute (3) Accelerated hypertension Current Visit: Yes Status: Acute (4) Diabetes Current Visit: Yes Status: Chronic (5) CAD (coronary artery disease) Current Visit: Yes Status: Chronic (6) History of coronary artery bypass graft Current Visit: Yes Status: Chronic (7) CKD (chronic kidney disease) Current Visit: Yes Status: Chronic (8) Elevated troponin Current Visit: Yes Status: Acute (9) Chronic venous insufficiency Current Visit: Yes Status: Chronic (10) Obesity Current Visit: Yes Status: Chronic Subjective Date of service: 08/15/18 Principal diagnosis: HF; palpitations Interval history: pt resting in bed, no current cardiac complaints. c/o bout of hypoglycemia overnight. Objective Last Vital Signs Temp 98.7 F 08/15/18 07:39 Pulse 65 08/15/18 10:04 Resp 20 08/15/18 08:44 BP 140/56 08/15/18 10:04 Pulse Ox 96 08/15/18 08:44 - Physical Examination General: No Apparent Distress HEENT: Positive: PERRL, Normocephaly, Mucus Membranes Moist Neck: Positive: neck supple, trachea midline Cardiac: Positive: Reg Rate and Rhythm, S1/S2 Lungs: Positive: Decreased Breath Sounds Neuro: Positive: Grossly Intact Abdomen: Positive: Soft. Negative: Tender Skin: Negative: Wound Extremities: Present: +2 Edema (BLE) - Labs and Meds Comprehensive Metabolic Panel 08/15/18 Range/Units 05:16 Glucose 89 (65-100) mg/dL - Imaging and Cardiology EKG: report reviewed, image reviewed Echo: report reviewed (05/2018 showed EF 55-60%, grade II diastolic dysfunction, mild to mod LVH, RV mod dilated, LA severely dilated, RA severely dilate, mild MR, severe TR, mod KS, RVSP 34mmHg.) - EKG Sinus rhythms and dysrhythmias: sinus rhythm Chamber hypertrophy or enlargement: left ventricular hypertro Repolarization changes or abnormalities: repolarization abn secondary to ventricular hypertrophy
== END 2018-08-15 12:50 | disposition home health service (06) | DRG 280 ==
LOC: ED 08:43 → 2B-ACE 12:17
PROVIDERS: ADMIT Internal Medicine; ATTEND Internal Medicine
PROC: 30233N1 Transfusion of Nonautologous Red Blood Cells into Peripheral Vein, Percutaneous Approach (ICD-10-PCS; principal; 2018-08-12)
DX: I21.4 Non-ST elevation (NSTEMI) myocardial infarction (principal); I50.43 Acute on chronic combined systolic (congestive) and diastolic (congestive) heart failure; E44.0 Moderate protein-calorie malnutrition; Z68.41 Body mass index [BMI] 40.0-44.9, adult; I13.0 Hypertensive heart and chronic kidney disease with heart failure and stage 1 through stage 4 chronic kidney disease, or unspecified chronic kidney disease; I47.1 Supraventricular tachycardia; D64.9 Anemia, unspecified; E11.65 Type 2 diabetes mellitus with hyperglycemia; N18.3 Chronic kidney disease, stage 3 (moderate); E11.22 Type 2 diabetes mellitus with diabetic chronic kidney disease; I25.10 Atherosclerotic heart disease of native coronary artery without angina pectoris; I08.1 Rheumatic disorders of both mitral and tricuspid valves; I87.2 Venous insufficiency (chronic) (peripheral); E66.01 Morbid (severe) obesity due to excess calories; M19.90 Unspecified osteoarthritis, unspecified site; Z95.5 Presence of coronary angioplasty implant and graft; Z90.710 Acquired absence of both cervix and uterus; Z79.4 Long term (current) use of insulin; Z79.899 Other long term (current) drug therapy; Z88.8 Allergy status to other drugs, medicaments and biological substances; Z95.1 Presence of aortocoronary bypass graft
CPT/HCPCS: 36415; 71046; 78452; 80048; 80053; 80061; 81001; 82271; 82947; 82962; 83735; 83880; 84439; 84443; 84484; 85025; 85027; 86850; 86900; 86901; 86920; 90471; 90686; 93005; 93010; 93017; 93306; G0378; A9502; G0008; J0360; J1815; J1940; J2785; J7030; J7040; P9016

== ENCOUNTER 2018-12-28 14:30 | Inpatient (IN) | payer MEDICARE ==
--- NOTE | 2018-12-28 14:40 | Event Note ---
ED Screening Note ED Screening Note: PT COMES TO ER WITH FAMILY BECAUSE SHE TOOK HER BP PILLS THIS AM EVEN THOUGH HER SON TOLD HER NOT TO AND THEN HER BLOOD PRESSURE FELL. ON MY MSE- SHE DENIED COMPLAINTS OF REILLY/SOB/CP SHE TOLD ME TO LOOK IN EMR FOR HER MEDS This initial assessment/diagnostic orders/clinical plan/treatment(s) is/are subject to change based on patients health status, clinical progression and re- assessment by fellow clinical providers in the ED. Further treatment and workup at subsequent clinical providers discretion. Patient/guardian urged not to elope from the ED as their condition may be serious if not clinically assessed and managed. Initial orders include:
[2018-12-28] MEDS ORDERED: NACL 0.9% 1000 ML 1,000 ML IV ONE ×2 (14:58→16:48)
[2018-12-28 15:28] LABS: Basophils # (Auto) 0.1 K/mm3 (0.0-0.1); Eosinophils # (Auto) 0.1 K/mm3 (0.0-0.4); Eosinophils % (Auto) 1.4 % (0.0-4.3); Hematocrit 25.7 % (30.3-42.9); Hemoglobin 8.6 gm/dl (10.1-14.3); Lymphocytes # (Auto) 0.6 K/mm3 (1.2-5.4); Lymphocytes % (Auto) 10.9 % (13.4-35.0); Mean Corpuscular HGB Conc 34 % (30-34); Mean Corpuscular Volume 86 fl (79-97); Monocytes # (Auto) 0.5 K/mm3 (0.0-0.8); Monocytes % (Auto) 8.5 % (0.0-7.3); Platelet Count 296 K/mm3 (140-440); Red Cell Distribution Width 17.8 % (13.2-15.2)
[2018-12-28 15:41] LABS: Calcium 9.1 mg/dL (8.4-10.2)
[2018-12-28 16:50] LABS: Chol/HDL Ratio 2.97 %
--- NOTE | 2018-12-28 18:45 | Emergency Department Report ---
ED Dizziness HPI - General Chief Complaint: Headache Stated Complaint: BP LOW Time Seen by Provider: 12/28/18 14:37 Source: family Mode of arrival: Wheelchair Limitations: No Limitations - History of Present Illness Initial Comments: 73-year-old female presents to ED with lightheadedness and hypotension. Patient states she checked her blood pressure when she awoke and systolic BP was in the 130s. Patient states she took some, but not all, of her blood pressure medications because her blood pressure was only in the 130s. Patient states afterwards she began to feel dizzy and lightheaded, as if she was going to pass out. When she rechecked her blood pressure it was low, 80s/50s. Patient denies chest pain, shortness of breath, nausea, vomiting, diarrhea, fever. MD Complaint: lightheadedness -: This afternoon Description: near-syncope Severity: moderate Improves With: nothing Worsens With: movement Associated Symptoms: denies: chest pain, cough, diaphoresis, fever/chills, shortness of breath - Related Data Home Medications Medication Instructions Recorded Confirmed Last Taken Isosorbide Mononitrate [Isosorbide 120 mg PO DAILY 09/12/13 12/28/18 08/12/18 08:00 Mononitrate ER] Ropinirole HCl 1 tab PO DAILY 09/12/13 12/28/18 08/11/18 21:00 Carvedilol [Coreg] 25 mg PO DAILY 11/24/15 12/28/18 08/12/18 08:00 Clonidine HCl [Catapres] 0.3 mg PO TID 11/24/15 12/28/18 08/12/18 08:00 Clopidogrel Bisulfate [Plavix] 75 mg PO DAILY 11/24/15 12/28/18 08/12/18 08:00 Oxaprozin 900 mg PO BID 11/24/15 12/28/18 08/12/18 08:00 Potassium Chloride [Klor-Con 10] 20 meq PO DAILY 11/24/15 12/28/18 08/12/18 08:00 hydrALAZINE [Apresoline TAB] 100 mg PO TID 11/24/15 12/28/18 08/12/18 08:00 Doxazosin [Cardura] 4 mg PO DAILY 08/12/18 12/28/18 08/12/18 08:00 Ferrous Gluconate 324 mg PO BID 08/12/18 12/28/18 08/12/18 08:00 metOLazone [Zaroxolyn] 2.5 mg PO DAILY 12/28/18 12/28/18 Unknown Previous Rx's Medication Instructions Recorded Last Taken Type Bumetanide [Bumex 1 mg tab] 1 mg PO DAILY #30 tab 08/15/18 Unknown Rx Insulin Glargine,Hum.rec.anlog 15 units SQ QHS 30 Days vial 08/15/18 Unknown Rx [Lantus] Allergies Allergy/AdvReac Type Severity Reaction Status Date / Time nitroglycerin AdvReac Shortness Verified 12/28/18 14:32 of Breath ED Review of Systems ROS: Stated complaint: BP LOW Other details as noted in HPI Comment: All other systems reviewed and negative Constitutional: denies: chills, fever Respiratory: denies: cough, shortness of breath Cardiovascular: denies: chest pain Gastrointestinal: denies: abdominal pain, nausea, vomiting ED Past Medical Hx - Past Medical History Hx Hypertension: Yes Hx Congestive Heart Failure: Yes Hx Diabetes: Yes Hx Renal Disease: Yes Hx Arthritis: Yes - Surgical History Hx Coronary Stent: Yes (2008 x4) Hx Open Heart Surgery: Yes Additional Surgical History: hyster - Social History Smoking Status: Never Smoker Substance Use Type: None - Medications Home Medications: Home Medications Medication Instructions Recorded Confirmed Last Taken Type Isosorbide Mononitrate [Isosorbide 120 mg PO DAILY 09/12/13 12/28/18 08/12/18 08:00 History Mononitrate ER] Ropinirole HCl 1 tab PO DAILY 09/12/13 12/28/18 08/11/18 21:00 History Carvedilol [Coreg] 25 mg PO DAILY 11/24/15 12/28/18 08/12/18 08:00 History Clonidine HCl [Catapres] 0.3 mg PO TID 11/24/15 12/28/18 08/12/18 08:00 History Clopidogrel Bisulfate [Plavix] 75 mg PO DAILY 11/24/15 12/28/18 08/12/18 08:00 History Oxaprozin 900 mg PO BID 11/24/15 12/28/18 08/12/18 08:00 History Potassium Chloride [Klor-Con 10] 20 meq PO DAILY 11/24/15 12/28/18 08/12/18 08:00 History hydrALAZINE [Apresoline TAB] 100 mg PO TID 11/24/15 12/28/18 08/12/18 08:00 History Doxazosin [Cardura] 4 mg PO DAILY 08/12/18 12/28/18 08/12/18 08:00 History Ferrous Gluconate 324 mg PO BID 08/12/18 12/28/18 08/12/18 08:00 History Bumetanide [Bumex 1 mg tab] 1 mg PO DAILY #30 tab 08/15/18 12/28/18 Unknown Rx Insulin Glargine,Hum.rec.anlog 15 units SQ QHS 30 Days vial 08/15/18 12/28/18 Unknown Rx [Lantus] metOLazone [Zaroxolyn] 2.5 mg PO DAILY 12/28/18 12/28/18 Unknown History ED Physical Exam - General Limitations: No Limitations General appearance: alert, in no apparent distress - Head Head exam: Present: atraumatic, normocephalic - Eye Eye exam: Present: normal appearance - ENT ENT exam: Present: mucous membranes moist - Neck Neck exam: Present: normal inspection - Respiratory Respiratory exam: Present: normal lung sounds bilaterally. Absent: respiratory distress - Cardiovascular Cardiovascular Exam: Present: normal rhythm, tachycardia - GI/Abdominal GI/Abdominal exam: Present: soft. Absent: distended, tenderness - Extremities Exam Extremities exam: Present: normal inspection - Neurological Exam Neurological exam: Present: alert, oriented X3, CN II-XII intact. Absent: motor sensory deficit - Psychiatric Psychiatric exam: Present: normal affect, normal mood - Skin Skin exam: Present: warm, dry, intact, normal color ED Course Vital Signs 12/28/18 12/28/18 12/28/18 14:37 16:23 16:30 Temperature 97.9 F Pulse Rate 108 H 94 H 97 H Respiratory 18 14 17 Rate Blood Pressure 91/61 Blood Pressure [Left] O2 Sat by Pulse 99 Oximetry 12/28/18 12/28/18 12/28/18 16:45 17:00 17:15 Temperature Pulse Rate 97 H 92 H 97 H Respiratory 17 14 11 L Rate Blood Pressure 100/66 109/68 112/63 Blood Pressure [Left] O2 Sat by Pulse Oximetry 12/28/18 12/28/18 12/28/18 17:30 17:45 18:00 Temperature Pulse Rate 98 H 97 H 89 Respiratory 21 15 15 Rate Blood Pressure 103/62 99/61 99/52 Blood Pressure [Left] O2 Sat by Pulse Oximetry 12/28/18 12/28/18 12/28/18 18:15 18:30 18:45 Temperature Pulse Rate 87 86 92 H Respiratory 20 21 18 Rate Blood Pressure 90/50 97/50 97/50 Blood Pressure [Left] O2 Sat by Pulse Oximetry 12/28/18 12/28/18 12/28/18 19:00 19:15 19:30 Temperature Pulse Rate 83 87 78 Respiratory 19 20 15 Rate Blood Pressure 93/51 99/56 104/48 Blood Pressure [Left] O2 Sat by Pulse 99 Oximetry 12/28/18 12/28/18 12/28/18 19:45 20:00 20:15 Temperature Pulse Rate 84 94 H 103 H Respiratory 19 13 18 Rate Blood Pressure 101/54 95/58 114/78 Blood Pressure [Left] O2 Sat by Pulse 98 99 99 Oximetry 12/28/18 12/28/18 20:59 22:18 Temperature Pulse Rate 84 Respiratory 18 Rate Blood Pressure 106/62 Blood Pressure 114/78 [Left] O2 Sat by Pulse 99 98 Oximetry ED Medical Decision Making - Lab Data Result diagrams: 12/29/18 06:23 12/29/18 06:23 - EKG Data -: EKG Interpreted by Nv EKG shows normal: axis, QRS complexes, ST-T waves Rate: normal (rate 83) - EKG Data Interpretation: other (Aflutter, PVCs present, prolonged QT) - Medical Decision Making 73-year-old female with hypotension after taking her blood pressure medications. Patient and now has acute on chronic renal failure with BUN of 80 and creatinine 2.5. In August of this year, patient had BUN of 39 and creatinine of 1.8. Remainder of workup unremarkable, no elevation in WBCs. Patient is afebrile. This does not seem to be an infectious etiology. This is likely directly in response to blood pressure medication. Patient denies any new medication or changes in dosages. EKG shows A. flutter with a rate of 83. Patient has previous history of paroxysmal atrial tachycardia, the previous EKG shows sinus rhythm with a rate of 83. History of CHF, however, last ECHO from 4 months ago shows EF of 55-60%. Fluid resucitation consisteing of 2 L bolus of IV fluids given, BP is improving. Will admit to hospitalist for further man agement. - Differential Diagnosis medication side effect, dehydration, ARF Critical Care Time: Yes Critical care time in (mins) excluding proc time.: 35 Critical care attestation.: If time is entered above; I have spent that time in minutes in the direct care of this critically ill patient, excluding procedure time. Critical Care Time: 35 minutes ED Disposition Clinical Impression: Acute on chronic renal failure, Hypotension, Atrial flutter Disposition: 09 OP ADMIT IP TO THIS HOSP Is pt being admited?: Yes Condition: Stable Time of Disposition: 18:46
[2018-12-28] MEDS ORDERED: ZOFRAN IV PRN (20:21)
[2018-12-28] MEDS ORDERED: D50W (25GM) Syringe IV PRN (20:21)
[2018-12-28] MEDS ORDERED: SODIUM CHLORIDE FLUSH SYRINGE 10 ML IV PRN (20:21)
--- NOTE | 2018-12-28 20:39 | History and Physical Report ---
<PATRICIA RAYGOZA - Last Filed: 12/28/18 22:17> History of Present Illness Date of examination: 12/28/18 Date of admission: 12/28/2018 Chief complaint: Dizziness History of present illness: 73-year-old -[place] female with history of diastolic CHF with EF of 55 this to 60% ( Echo 08/13/18), DM, CK 83, HTN, and STEMI, proximal atrial tachycardia, CAD with history of CABG s/p stentx4 (2008), venous insufficiency, morbid obesity, chronic anemia who presents [facility] ED with complaints of dizziness. Patient states that she has checked her blood pressure this morning and SBP was in the 130's. She then took "some" her blood pressure medicine shortly after she began to feel dizzy. She rechecked her blood pressure and it was in 80'/30's (can't recall exact reading). Her dizziness did not improve so she decided to go to ED for further evaluation and treatment. Denies: syncope, chest pain, headache, nausea, emesis, hemoptysis, or fever Past History Past Medical History: acute IN (NSTEMI), anemia (chronic), CAD (S/P stent 4 (2008)), diabetes, heart failure (diastolic CHF with EF 55-60%), hypertension, other (CKD3, paroxysmal atrial tachycardia, venous insufficiency, morbid obesity,) Past Surgical History: CABG, hysterectomy, Other (s/p stent X4) Social history: Lives alone Family history: no significant family history Medications and Allergies Allergies Allergy/AdvReac Type Severity Reaction Status Date / Time nitroglycerin AdvReac Shortness Verified 12/28/18 14:32 of Breath Home Medications Medication Instructions Recorded Confirmed Last Taken Type Isosorbide Mononitrate [Isosorbide 120 mg PO DAILY 09/12/13 12/28/18 08/12/18 08:00 History Mononitrate ER] Ropinirole HCl 1 tab PO DAILY 09/12/13 12/28/18 08/11/18 21:00 History Carvedilol [Coreg] 25 mg PO DAILY 11/24/15 12/28/18 08/12/18 08:00 History Clonidine HCl [Catapres] 0.3 mg PO TID 11/24/15 12/28/18 08/12/18 08:00 History Clopidogrel Bisulfate [Plavix] 75 mg PO DAILY 11/24/15 12/28/18 08/12/18 08:00 History Oxaprozin 900 mg PO BID 11/24/15 12/28/18 08/12/18 08:00 History Potassium Chloride [Klor-Con 10] 20 meq PO DAILY 11/24/15 12/28/18 08/12/18 08:00 History hydrALAZINE [Apresoline TAB] 100 mg PO TID 11/24/15 12/28/18 08/12/18 08:00 History Doxazosin [Cardura] 4 mg PO DAILY 08/12/18 12/28/18 08/12/18 08:00 History Ferrous Gluconate 324 mg PO BID 08/12/18 12/28/18 08/12/18 08:00 History Bumetanide [Bumex 1 mg tab] 1 mg PO DAILY #30 tab 08/15/18 12/28/18 Unknown Rx Insulin Glargine,Hum.rec.anlog 15 units SQ QHS 30 Days vial 08/15/18 12/28/18 Unknown Rx [Lantus] metOLazone [Zaroxolyn] 2.5 mg PO DAILY 12/28/18 12/28/18 Unknown History Review of Systems All systems: negative (reviewed and no additional remarkable complaints except as noted below) Cardiovascular: lightheadedness, other (dizziness) Exam - Physical Exam Narrative exam: Physical exam General appearance: Present: No acute distress, alert and oriented 3 over the - EENT Eyes: Present: PERRL, EOM intact ENT: hearing intact, wears dentures - Neck Neck: Present: supple, normal ROM - Respiratory Respiratory effort: Non-labored Respiratory: bilateral: diminished (bases) - Cardiovascular Heart rate: 83 (bpm) Rhythm: Atrial flutter Heart Sounds: Present: S1 & S2. Absent: rub, click - Extremities Extremities: no ischemia, pulses intact, - Peripheral Assessment Peripheral Pulses: within normal limits - Abdominal General gastrointestinal: soft, non-tender, normal bowel sounds - Integumentary Integumentary: Present: warm, dry - Musculoskeletal Musculoskeletal: Able to move all extremities -Neurological Neurological: CNII-XII intact - Psychiatric Psychiatric: Appropriate for situation, cooperative - Constitutional Vitals: Temp Pulse Resp BP Pulse Ox 97.9 F 89 15 99/52 99 06/21/19 14:37 12/28/18 18:00 12/28/18 18:00 12/28/18 18:00 12/28/18 14:37 Results - Labs CBC & Chem 7: 12/28/18 15:10 12/28/18 15:10 Labs: Laboratory Last Values WBC 5.6 K/mm3 (4.5-11.0) 12/28/18 15:10 RBC 3.00 M/mm3 (3.65-5.03) L 12/28/18 15:10 Hgb 8.6 gm/dl (10.1-14.3) L 12/28/18 15:10 Hct 25.7 % (30.3-42.9) L 12/28/18 15:10 MCV 86 fl (79-97) 12/28/18 15:10 MCH 29 pg (28-32) 12/28/18 15:10 MCHC 34 % (30-34) 12/28/18 15:10 RDW 17.8 % (13.2-15.2) H 12/28/18 15:10 Plt Count 296 K/mm3 (140-440) 12/28/18 15:10 Lymph % (Auto) 10.9 % (13.4-35.0) L 12/28/18 15:10 [place] % (Auto) 8.5 % (0.0-7.3) H 12/28/18 15:10 Eos % (Auto) 1.4 % (0.0-4.3) 12/28/18 15:10 Baso % (Auto) 1.0 % (0.0-1.8) 12/28/18 15:10 Lymph # 0.6 K/mm3 (1.2-5.4) L 12/28/18 15:10 [place] # 0.5 K/mm3 (0.0-0.8) 12/28/18 15:10 Eos # 0.1 K/mm3 (0.0-0.4) 12/28/18 15:10 Baso # 0.1 K/mm3 (0.0-0.1) 12/28/18 15:10 Seg Neutrophils % 78.2 % (40.0-70.0) H 12/28/18 15:10 Seg Neutrophils # 4.4 K/mm3 (1.8-7.7) 12/28/18 15:10 Sodium 132 mmol/L (137-145) L 12/28/18 15:10 Potassium 3.7 mmol/L (3.6-5.0) 12/28/18 15:10 Chloride 88.7 mmol/L (98-107) L 12/28/18 15:10 Carbon Dioxide 30 mmol/L (22-30) 12/28/18 15:10 17 mmol/L 12/28/18 15:10 BUN 80 mg/dL (7-17) H 12/28/18 15:10 2.5 mg/dL (0.7-1.2) H 12/28/18 15:10 Estimated GFR 23 ml/min 12/28/18 15:10 32 % 12/28/18 15:10 Glucose 251 mg/dL (65-100) H 12/28/18 15:10 Calcium 9.1 mg/dL (8.4-10.2) 12/28/18 15:10 0.048 ng/mL (0.00-0.029) H 12/28/18 15:10 Triglycerides 84 mg/dL (2-149) 12/28/18 15:10 Cholesterol 104 mg/dL (50-199) 12/28/18 15:10 59 mg/dL (50-130) 12/28/18 15:10 35 mg/dL (40-59) L 12/28/18 15:10 2.97 % 12/28/18 15:10 - Imaging and Cardiology EKG: image reviewed (83 bpm, atrial flutter) Assessment and Plan Assessment and plan: 73-year-old -[place] female with morbid obesity, history of diastolic CHF with EF of 55 this to 60% ( Echo 08/13/18), DM, CK 83, HTN, and STEMI, proximal atrial tachycardia, CAD with history of CABG s/p stentx4 (2008), venous insufficiency, morbid obesity, chronic anemia who presents [facility] ED with complaints of hypotension and dizziness. Patient was given 2L NS bolus with slight improvement in BP. Will admit to telemetry. Hypotension Diastolic CHF ejection fraction 55-60% Acute on chronic renal failure Atrial flutter History of proximal atrial tachycardia History of HTN CAD with Hx CABG s/p stent x4 Chronic Venous insufficiency Morbid obesity Hyponatremia Plan: Continue supportive care Continuous telemetry monitoring Patient has history of paroxysmal atrial tachycardia; on this admission was in atrial flutter with heart rate of 83 bpm, now in SR Cardiology Consult pending Monitor BP Hold all antihypertensive medication for now , due to hypotension Creatinine this admission 2.5, Baseline creatinine 1.8; continue to monitor renal; avoid nephro toxic agents (nephrologists) consulted POC BG monitoring SSI coverage Continue home Metformin 500mg BID Lifestyle changes, may benefit from outpatient management of DVT PPX on heparin Advance Directives: No VTE prophylaxis?: Chemical Plan of care discussed with patient/family: Yes <DELISA PATRICK S - Last Filed: 12/29/18 15:16> History of Present Illness Date of admission: 12/28/18 20:21 Medications and Allergies Active Meds: Active Medications Acetaminophen (Tylenol) 650 mg PO Q4H PRN PRN Reason: Pain MILD(1-3)/Fever >100.5/REILLY Apixaban (Eliquis) 5 mg PO Q12HR [facility]; Protocol Last Admin: 12/29/18 13:50 Dose: 5 mg Documented by: Aspirin (Baby Aspirin) 81 mg PO QDAY [facility] Last Admin: 12/29/18 10:34 Dose: 81 mg Documented by: Dextrose (D50w (25gm) Syringe) 50 ml IV PRN PRN PRN Reason: Hypoglycemia Docusate Sodium (Colace) 100 mg PO BID [facility] Last Admin: 12/29/18 10:34 Dose: 100 mg Documented by: Ferrous Gluconate (Fergon) 324 mg PO BID [facility] Last Admin: 12/29/18 13:45 Dose: 324 mg Documented by: Insulin Glargine (Lantus) 15 units SUB-Q QHS [facility] Last Admin: 12/28/18 22:56 Dose: 15 units Documented by: Insulin Human Lispro (Humalog) 0 unit SUB-Q [facility]; Protocol Last Admin: 12/29/18 13:45 Dose: 1 unit Documented by: Metolazone (Zaroxolyn) 2.5 mg PO DAILY [facility] Ondansetron HCl (Zofran) 4 mg IV Q8H PRN PRN Reason: Nausea And Vomiting Potassium Chloride (K-Dur) 20 meq PO BID [facility] Ropinirole HCl (Requip) 1 mg PO DAILY [facility] Last Admin: 12/29/18 10:35 Dose: 1 mg Documented by: Sodium Chloride (Sodium Chloride Flush Syringe 10 Ml) 10 ml IV BID [facility] Last Admin: 12/29/18 10:59 Dose: 10 ml Documented by: Sodium Chloride (Sodium Chloride Flush Syringe 10 Ml) 10 ml IV PRN PRN PRN Reason: LINE FLUSH Exam - Constitutional Vitals: Temp Pulse Resp BP Pulse Ox 98.7 F 89 18 127/63 98 12/29/18 07:30 12/29/18 07:30 12/29/18 07:30 12/29/18 07:30 12/29/18 07:30 Results - Labs CBC & Chem 7: 12/29/18 06:23 12/29/18 06:23 Labs: Laboratory Last Values WBC 5.3 K/mm3 (4.5-11.0) 12/29/18 06:23 RBC 2.71 M/mm3 (3.65-5.03) L 12/29/18 06:23 Hgb 7.9 gm/dl (10.1-14.3) L 12/29/18 06:23 Hct 23.4 % (30.3-42.9) L 12/29/18 06:23 MCV 86 fl (79-97) 12/29/18 06:23 MCH 29 pg (28-32) 12/29/18 06:23 MCHC 34 % (30-34) 12/29/18 06:23 RDW 17.1 % (13.2-15.2) H 12/29/18 06:23 Plt Count 268 K/mm3 (140-440) 12/29/18 06:23 Lymph % (Auto) 17.6 % (13.4-35.0) 12/29/18 06:23 [place] % (Auto) 13.4 % (0.0-7.3) H 12/29/18 06:23 Eos % (Auto) 2.6 % (0.0-4.3) 12/29/18 06:23 Baso % (Auto) 1.1 % (0.0-1.8) 12/29/18 06:23 Lymph # 0.9 K/mm3 (1.2-5.4) L 12/29/18 06:23 [place] # 0.7 K/mm3 (0.0-0.8) 12/29/18 06:23 Eos # 0.1 K/mm3 (0.0-0.4) 12/29/18 06:23 Baso # 0.1 K/mm3 (0.0-0.1) 12/29/18 06:23 Seg Neutrophils % 65.3 % (40.0-70.0) 12/29/18 06:23 Seg Neutrophils # 3.5 K/mm3 (1.8-7.7) 12/29/18 06:23 Sodium 136 mmol/L (137-145) L 12/29/18 06:23 Potassium 3.1 mmol/L (3.6-5.0) L 12/29/18 06:23 Chloride 93.9 mmol/L (98-107) L 12/29/18 06:23 Carbon Dioxide 28 mmol/L (22-30) 12/29/18 06:23 17 mmol/L 12/29/18 06:23 BUN 78 mg/dL (7-17) H 12/29/18 06:23 2.4 mg/dL (0.7-1.2) H 12/29/18 06:23 Estimated GFR 24 ml/min 12/29/18 06:23 33 % 12/29/18 06:23 Glucose 234 mg/dL (65-100) H 12/29/18 06:23 POC Glucose 219 (70-105) H 12/29/18 10:37 Calcium 8.8 mg/dL (8.4-10.2) 12/29/18 06:23 Phosphorus 3.60 mg/dL (2.5-4.5) 12/29/18 10:30 Magnesium 1.80 mg/dL (1.7-2.3) 12/29/18 10:30 Iron 38 ug/dL (37-170) 12/29/18 10:31 TIBC 237 mcg/dL (250-450) L 12/29/18 10:31 191 mg/dl (192-382) L 12/29/18 10:31 288.9 ng/mL (13.0-400.0) 12/29/18 10:31 0.048 ng/mL (0.00-0.029) H 12/28/18 15:10 Triglycerides 84 mg/dL (2-149) 12/28/18 15:10 Cholesterol 104 mg/dL (50-199) 12/28/18 15:10 59 mg/dL (50-130) 12/28/18 15:10 35 mg/dL (40-59) L 12/28/18 15:10 2.97 % 12/28/18 15:10 PTH Intact 128.5 pg/mL (15-65) H 12/29/18 10:31 Assessment and Plan Assessment and plan: Will discontinue Metformin b/c of elevated creatinine
[2018-12-28] MEDS ORDERED: FERROUS GLUCONATE 324 MG PO SCH (22:00)
[2018-12-28] MEDS: HumaLOG SUB-Q SCH (22:11)
[2018-12-28] MEDS: HEPARIN SUB-Q SCH (22:11)
[2018-12-28] MEDS: COLACE PO SCH (22:11)
[2018-12-28] MEDS: SODIUM CHLORIDE FLUSH SYRINGE 10 ML IV SCH (22:13)
[2018-12-28] MEDS: FERGON PO SCH (22:56)
[2018-12-28] MEDS: LANTUS SUB-Q SCH (22:56)
[2018-12-29 07:03] LABS: Basophils # (Auto) 0.1 K/mm3 (0.0-0.1); Basophils % (Auto) 1.1 % (0.0-1.8); Eosinophils # (Auto) 0.1 K/mm3 (0.0-0.4); Eosinophils % (Auto) 2.6 % (0.0-4.3); Hematocrit 23.4 % (30.3-42.9); Hemoglobin 7.9 gm/dl (10.1-14.3); Lymphocytes # (Auto) 0.9 K/mm3 (1.2-5.4); Lymphocytes % (Auto) 17.6 % (13.4-35.0); Mean Corpuscular HGB Conc 34 % (30-34); Mean Corpuscular Volume 86 fl (79-97); Monocytes # (Auto) 0.7 K/mm3 (0.0-0.8); Monocytes % (Auto) 13.4 % (0.0-7.3); Platelet Count 268 K/mm3 (140-440); Red Blood Count 2.71 M/mm3 (3.65-5.03); Red Cell Distribution Width 17.1 % (13.2-15.2)
[2018-12-29 07:25] LABS: Calcium 8.8 mg/dL (8.4-10.2)
[2018-12-29] MEDS ORDERED: HumuLIN R SUB-Q SCH (07:30)
--- NOTE | 2018-12-29 08:39 | Consultation ---
History of Present Illness - Reason for Consult Consult date: 12/29/18 acute renal failure, chronic renal failure - History of Present Illness This is a 73 y/o F with PMH of diastolic CHF, DM type 2, CKD 3, HTN, STEMI, CAD hx of CABG x 4, proximal atrial tachycardia, and anemia who presented to [facility] ED with c/o dizziness, weakness, fatigue, and hypotension. Pt reports feeling dizzy after only taking her clonidine blood pressure medication (she didn't take her other BP meds) and after rechecking her BP several times her blood pressure continued to decrease with lowest reading being in 80s systolic. Pt denies shortness of breath, chest pain, ABD pain, nausea, vomiting, diarrhea, or dysur ia. We were consulted to evaluate this pt who has JOSE on CKD. This pt is followed by us an outpatient. Pt takes Bumex 1 mg once a day and metolazone 2.5 mg po daily at home. Past History Past Medical History: acute HI (NSTEMI), anemia (chronic), CAD (S/P stent 4 (2008)), diabetes, heart failure (diastolic CHF with EF 55-60%), hypertension, other (CKD3, paroxysmal atrial tachycardia, venous insufficiency, morbid obesity,) Past Surgical History: CABG, hysterectomy, Other (s/p stent X4) Social history: Lives alone Family history: no significant family history Medications and Allergies Allergies Allergy/AdvReac Type Severity Reaction Status Date / Time nitroglycerin AdvReac Shortness Verified 12/28/18 14:32 of Breath Home Medications Medication Instructions Recorded Confirmed Last Taken Type Isosorbide Mononitrate [Isosorbide 120 mg PO DAILY 09/12/13 12/28/18 08/12/18 08:00 History Mononitrate ER] Ropinirole HCl 1 tab PO DAILY 09/12/13 12/28/18 08/11/18 21:00 History Carvedilol [Coreg] 25 mg PO DAILY 11/24/15 12/28/18 08/12/18 08:00 History Clonidine HCl [Catapres] 0.3 mg PO TID 11/24/15 12/28/18 08/12/18 08:00 History Clopidogrel Bisulfate [Plavix] 75 mg PO DAILY 11/24/15 12/28/18 08/12/18 08:00 History Oxaprozin 900 mg PO BID 11/24/15 12/28/18 08/12/18 08:00 History Potassium Chloride [Klor-Con 10] 20 meq PO DAILY 11/24/15 12/28/18 08/12/18 08:00 History hydrALAZINE [Apresoline TAB] 100 mg PO TID 11/24/15 12/28/18 08/12/18 08:00 History Doxazosin [Cardura] 4 mg PO DAILY 08/12/18 12/28/18 08/12/18 08:00 History Ferrous Gluconate 324 mg PO BID 08/12/18 12/28/18 08/12/18 08:00 History Bumetanide [Bumex 1 mg tab] 1 mg PO DAILY #30 tab 08/15/18 12/28/18 Unknown Rx Insulin Glargine,Hum.rec.anlog 15 units SQ QHS 30 Days vial 08/15/18 12/28/18 Unknown Rx [Lantus] metOLazone [Zaroxolyn] 2.5 mg PO DAILY 12/28/18 12/28/18 Unknown History Active Meds: Active Medications Acetaminophen (Tylenol) 650 mg PO Q4H PRN PRN Reason: Pain MILD(1-3)/Fever >100.5/REILLY Aspirin (Baby Aspirin) 81 mg PO QDAY [facility] Clopidogrel Bisulfate (Plavix) 75 mg PO DAILY [facility] Dextrose (D50w (25gm) Syringe) 50 ml IV PRN PRN PRN Reason: Hypoglycemia Docusate Sodium (Colace) 100 mg PO BID [facility] Last Admin: 12/28/18 22:11 Dose: 100 mg Documented by: Ferrous Gluconate (Fergon) 324 mg PO BID [facility] Last Admin: 12/28/18 22:56 Dose: 324 mg Documented by: Heparin Sodium (Porcine) (Heparin) 5,000 unit SUB-Q Q12HR [facility] Last Admin: 12/28/18 22:11 Dose: 5,000 unit Documented by: Insulin Glargine (Lantus) 15 units SUB-Q QHS [facility] Last Admin: 12/28/18 22:56 Dose: 15 units Documented by: Insulin Human Lispro (Humalog) 0 unit SUB-Q [facility]; Protocol Last Admin: 12/28/18 22:11 Dose: 3 unit Documented by: Ondansetron HCl (Zofran) 4 mg IV Q8H PRN PRN Reason: Nausea And Vomiting Ropinirole HCl (Requip) 1 mg PO DAILY [facility] Sodium Chloride (Sodium Chloride Flush Syringe 10 Ml) 10 ml IV BID [facility] Last Admin: 12/28/18 22:13 Dose: 10 ml Documented by: Sodium Chloride (Sodium Chloride Flush Syringe 10 Ml) 10 ml IV PRN PRN PRN Reason: LINE FLUSH Review of Systems Constitutional: other (dizziness) Cardiovascular: no chest pain, no shortness of breath, no dyspnea on exertion Respiratory: no shortness of breath, no dyspnea on exertion Gastrointestinal: no abdominal pain, no nausea, no vomiting, no diarrhea, no constipation, no hematemesis Integumentary: no sores, no wounds Neurological: other (dizziness) Psychiatric: no anxiety, no depression Exam - Vital Signs Vital signs: Vital Signs Temp Pulse Resp BP Pulse Ox 97.9 F 108 H 18 91/61 99 12/28/18 14:37 12/28/18 14:37 12/28/18 14:37 12/28/18 14:37 12/28/18 14:37 - General Appearance General appearance: well-developed EENT: ATNC Neck: Present: neck supple Respiratory: Decreased Breath Sounds Heart: S1S2 (midsternal incision s/p prior CABG) Gastrointestinal: Present: normoactive bowel sounds. Absent: tenderness Integumentary: warm and dry Neurologic: alert and oriented x3 Musculoskeletal: Present: other (trace edema to BLE) Psychiatric: mood/affect appropriate, cooperative Results - Lab Results 12/29/18 06:23 12/29/18 06:23 Most recent lab results Calcium 8.8 mg/dL (8.4-10.2) 12/29/18 06:23 Assessment and Plan Acute Kidney Injury possibly prerenal worsened in setting of hypotension, diuretics, on CKD Stage 3, r/o obstruction: Hypokalemia: Hyponatremia: - Renal function reviewed, SCr level was 2.4 today, yesterday's SCr level was 2.5 - Review of labs from 2015 to Aug showed SCr level between 1.5-1.8 - Holding home diuretic Bumex and metolazone for now - S/p 2L 0.9% NS Fluid Bolus - Check Renal US - Replete potassium - Check magnesium, PTH, and phosphorus - Hyponatremia improving - Obtain urine lytes/protein - Renally dose meds - Briggs Catheter: No - Renal plan d/w Dr Walter Hypotension: Hx of Hypertension: - Holding all anti-hypertensive medications - S/p 2 liter 0.9% NS Fluid Bolus CAD s/p CABG x 4: History of Proximal Atrial Tachycardia/ Atrial Flutter: Diastolic CHF: - Cardiology consulted, f/u recs - On Plavix - Holding home Bumex and metolazone for now Diabetes Mellitus Type 2 on insulin: - On SSI and Lantus - As per primary team Anemia: - Likely due to CKD - On oral iron - Obtain iron studies
[2018-12-29] MEDS ORDERED: K-DUR PO ONE (10:00)
[2018-12-29] MEDS ORDERED: PLAVIX PO SCH (10:00)
[2018-12-29] MEDS: HumaLOG SUB-Q SCH ×4 (10:31→22:49)
[2018-12-29] MEDS: COLACE PO SCH ×2 (10:34→22:48)
[2018-12-29] MEDS: BABY ASPIRIN PO SCH (10:34)
[2018-12-29] MEDS: HEPARIN SUB-Q SCH (10:34)
[2018-12-29] MEDS: REQUIP PO SCH (10:35)
[2018-12-29] MEDS: SODIUM CHLORIDE FLUSH SYRINGE 10 ML IV SCH ×2 (10:59→22:50)
[2018-12-29 11:07] LABS: Iron 38 ug/dL (37-170); Total Iron Binding Capacity 237 mcg/dL (250-450)
--- NOTE | 2018-12-29 11:14 | Consultation ---
History of Present Illness Consult date: 12/29/18 History of present illness: 73-year-old patient known to us by our group for coronary disease came in because of dizziness and low blood pressure. Patient's blood pressure is 80-90 systolic. Patient was noted to be in atrial fibrillation which is new onset. Patient is known to have hypertension, diabetes mellitus and hyperlipidemia since 1988. Patient underwent coronary artery bypass surgery 96 and subsequently here since stent deployment in 1999. Patient had myocardial perfusion imaging studies done in August 2018 and this was negative for ischemia she was noted to have ejection fraction of 55-60%. Patient also has chronic kidney disease with creatinine around 1.7 baseline. Patient has been taking Plavix and not on aspirin. Patient has anemia of unknown cause. Patient has been seen by manager nc in the past. Past History Past Medical History: acute CO (NSTEMI), anemia (chronic), CAD (S/P stent 4 (2008)), diabetes, heart failure (diastolic CHF with EF 55-60%), hypertension, hyperlipidemia, other (CKD3, paroxysmal atrial tachycardia, venous insufficiency, morbid obesity,) Past Surgical History: CABG, hysterectomy, Other (s/p stent X4) Social history: Lives alone Family history: no significant family history Medications and Allergies Allergies Allergy/AdvReac Type Severity Reaction Status Date / Time nitroglycerin AdvReac Shortness Verified 12/28/18 14:32 of Breath Home Medications Medication Instructions Recorded Confirmed Last Taken Type Isosorbide Mononitrate [Isosorbide 120 mg PO DAILY 09/12/13 12/28/18 08/12/18 08:00 History Mononitrate ER] Ropinirole HCl 1 tab PO DAILY 09/12/13 12/28/18 08/11/18 21:00 History Carvedilol [Coreg] 25 mg PO DAILY 11/24/15 12/28/18 08/12/18 08:00 History Clonidine HCl [Catapres] 0.3 mg PO TID 11/24/15 12/28/18 08/12/18 08:00 History Clopidogrel Bisulfate [Plavix] 75 mg PO DAILY 11/24/15 12/28/18 08/12/18 08:00 History Oxaprozin 900 mg PO BID 11/24/15 12/28/18 08/12/18 08:00 History Potassium Chloride [Klor-Con 10] 20 meq PO DAILY 11/24/15 12/28/18 08/12/18 08:00 History hydrALAZINE [Apresoline TAB] 100 mg PO TID 11/24/15 12/28/18 08/12/18 08:00 History Doxazosin [Cardura] 4 mg PO DAILY 08/12/18 12/28/18 08/12/18 08:00 History Ferrous Gluconate 324 mg PO BID 08/12/18 12/28/18 08/12/18 08:00 History Bumetanide [Bumex 1 mg tab] 1 mg PO DAILY #30 tab 08/15/18 12/28/18 Unknown Rx Insulin Glargine,Hum.rec.anlog 15 units SQ QHS 30 Days vial 08/15/18 12/28/18 Unknown Rx [Lantus] metOLazone [Zaroxolyn] 2.5 mg PO DAILY 12/28/18 12/28/18 Unknown History Active Meds: Active Medications Acetaminophen (Tylenol) 650 mg PO Q4H PRN PRN Reason: Pain MILD(1-3)/Fever >100.5/REILLY Aspirin (Baby Aspirin) 81 mg PO QDAY [facility] Last Admin: 12/29/18 10:34 Dose: 81 mg Documented by: Clopidogrel Bisulfate (Plavix) 75 mg PO DAILY [facility] Last Admin: 12/29/18 10:35 Dose: 75 mg Documented by: Dextrose (D50w (25gm) Syringe) 50 ml IV PRN PRN PRN Reason: Hypoglycemia Docusate Sodium (Colace) 100 mg PO BID [facility] Last Admin: 12/29/18 10:34 Dose: 100 mg Documented by: Ferrous Gluconate (Fergon) 324 mg PO BID [facility] Last Admin: 12/28/18 22:56 Dose: 324 mg Documented by: Heparin Sodium (Porcine) (Heparin) 5,000 unit SUB-Q Q12HR [facility] Last Admin: 12/29/18 10:34 Dose: 5,000 unit Documented by: Insulin Glargine (Lantus) 15 units SUB-Q QHS [facility] Last Admin: 12/28/18 22:56 Dose: 15 units Documented by: Insulin Human Lispro (Humalog) 0 unit SUB-Q [facility]; Protocol Last Admin: 12/29/18 10:31 Dose: 2 unit Documented by: Ondansetron HCl (Zofran) 4 mg IV Q8H PRN PRN Reason: Nausea And Vomiting Ropinirole HCl (Requip) 1 mg PO DAILY [facility] Last Admin: 12/29/18 10:35 Dose: 1 mg Documented by: Sodium Chloride (Sodium Chloride Flush Syringe 10 Ml) 10 ml IV BID [facility] Last Admin: 12/29/18 10:59 Dose: 10 ml Documented by: Sodium Chloride (Sodium Chloride Flush Syringe 10 Ml) 10 ml IV PRN PRN PRN Reason: LINE FLUSH Review of Systems Constitutional: no weight loss, no chills, no anorexia, no weakness, no chronic headaches, no poor appetite Ears, nose, mouth and throat: no epistaxis Cardiovascular: no chest pain, no palpitations Respiratory: no cough, no sleep apnea Gastrointestinal: no abdominal pain, no nausea, no vomiting, no change in bowel habits, no melena, no hematochezia Neurological: no weakness, no syncope, no lack of coordination, no change in speech, no gait dysfunction Endocrine: no cold intolerance, no heat intolerance, no polyuria Hematologic/Lymphatic: no easy bruising, no easy bleeding, no lymphadenopathy Physical Examination Vital Signs Temp Pulse Resp BP Pulse Ox 97.9 F 108 H 18 91/61 99 12/28/18 14:37 12/28/18 14:37 12/28/18 14:37 12/28/18 14:37 12/28/18 14:37 General appearance: no acute distress Cardiac: Positive: Irregularly Regular, irregularly irregular. Negative: S3, S4 Lungs: Positive: clear to auscultation Neuro: Positive: Grossly Intact Abdomen: Positive: Unremarkable, Soft, Active Bowel Sounds. Negative: Hepatosplenomegaly Skin: Positive: Clear Extremities: Present: normal. Absent: edema Results 12/29/18 06:23 12/29/18 06:23 Lipids 12/28/18 Range/Units 15:10 Triglycerides 84 (2-149) mg/dL Cholesterol 104 (50-199) mg/dL HDL Cholesterol 35 L (40-59) mg/dL Cholesterol/HDL Ratio 2.97 % CBC 12/28/18 12/29/18 Range/Units 15:10 06:23 WBC 5.6 5.3 (4.5-11.0) K/mm3 RBC 3.00 L 2.71 L (3.65-5.03) M/mm3 Hgb 8.6 L 7.9 L (10.1-14.3) gm/dl Hct 25.7 L 23.4 L (30.3-42.9) % Plt Count 296 268 (140-440) K/mm3 Lymph # 0.6 L 0.9 L (1.2-5.4) K/mm3 [place] # 0.5 0.7 (0.0-0.8) K/mm3 Eos # 0.1 0.1 (0.0-0.4) K/mm3 Baso # 0.1 0.1 (0.0-0.1) K/mm3 Comprehensive Metabolic Panel 12/28/18 12/29/18 Range/Units 15:10 06:23 Sodium 132 L 136 L (137-145) mmol/L Potassium 3.7 3.1 L (3.6-5.0) mmol/L Chloride 88.7 L 93.9 L (98-107) mmol/L Carbon Dioxide 30 28 (22-30) mmol/L BUN 80 H 78 H (7-17) mg/dL Creatinine 2.5 H 2.4 H (0.7-1.2) mg/dL Glucose 251 H 234 H (65-100) mg/dL Calcium 9.1 8.8 (8.4-10.2) mg/dL - Imaging and Cardiology Echo: report reviewed ([id number]%) Assessment and Plan Atrial fibrillation new onset. Transient 2 hypotension probably related to atrial fibrillatio Diabetes mellitus2 since 1988. History of hypertension. History of chronic anemia of unknown etiology. History of chronic kidney disease now acute on chronic kidney disease. Patient creatinine is 1.7 baseline, and now it is 2.4. History of coronary artery bypass in 1995 stent deployment in 1999. Discussion patient has SEVERO score 4. Patient is to be started on Anticoagulants discontinue Plavix. Patient is anemic at 7.9 g percent. Patient can continue 81 mg of aspirin. Control the heart rate with Beta blockers. Replace potassium and baseline chest x-ray to be done. Magnesium level to be checked.
--- NOTE | 2018-12-29 12:46 | Progress Note ---
Assessment and Plan Assessment and plan: --Atrial fibrillation; rate controlled Continue current beta blockers, anticoagulation Eliquis Aspirin 81 mg , DC Plavix [increased discomfort bleeding ] patient already anemic Cardiology following --Hypotension; mild improvement Closely monitor blood pressures, hold antihypertensives --Acute kidney injury; probably secondary to vasomotor nephropathy Closely monitor renal function, and avoid nephrotoxins, gentle hydration, nephrology following --History of coronary artery disease status post CABG; Continue current cardiac medications, cardiology following --Chronic Diastolic congestive heart failure; EF 55-60% Continue current anti-failure medications and supportive care --Type 2 diabetes mellitus; Accu-Chek sliding scale coverage and ADA diet Insulin as needed --Chronic anemia; probably iron deficiency, kidney injury Closely monitor H&H and transfuse as needed --Morbid obesity; BMI 44.8 Advice weight reduction when medically stable --DVT prophylaxis;on Eliquis Monitor closely and adjust the management as needed History Interval history: Patient seen and examined medical records reviewed Complaints of generalized weakness No new Complaints Vital signs reviewed Hospitalist Physical - Constitutional Vitals: Temp Pulse Resp BP Pulse Ox 98.7 F 89 18 127/63 98 12/29/18 07:30 12/29/18 07:30 12/29/18 07:30 12/29/18 07:30 12/29/18 07:30 General appearance: Present: no acute distress, well-nourished, obese - EENT Eyes: Present: PERRL, EOM intact - Neck Neck: Present: supple, normal ROM - Respiratory Respiratory effort: normal Respiratory: bilateral: diminished, negative: rales, rhonchi, wheezing - Cardiovascular Rhythm: irregularly irregular Heart Sounds: Present: S1 & S2 - Extremities Extremities: no ischemia, No edema - Abdominal General gastrointestinal: soft, non-tender, non-distended, normal bowel sounds - Integumentary Integumentary: Present: clear, warm - Psychiatric Psychiatric: appropriate mood/affect, cooperative - Neurologic Neurologic: CNII-XII intact, moves all extremities Results - Labs CBC & Chem 7: 12/30/18 05:41 12/30/18 05:41 Labs: Laboratory Last Values WBC 5.3 K/mm3 (4.5-11.0) 12/29/18 06:23 RBC 2.71 M/mm3 (3.65-5.03) L 12/29/18 06:23 Hgb 7.9 gm/dl (10.1-14.3) L 12/29/18 06:23 Hct 23.4 % (30.3-42.9) L 12/29/18 06:23 MCV 86 fl (79-97) 12/29/18 06:23 MCH 29 pg (28-32) 12/29/18 06:23 MCHC 34 % (30-34) 12/29/18 06:23 RDW 17.1 % (13.2-15.2) H 12/29/18 06:23 Plt Count 268 K/mm3 (140-440) 12/29/18 06:23 Lymph % (Auto) 17.6 % (13.4-35.0) 12/29/18 06:23 [place] % (Auto) 13.4 % (0.0-7.3) H 12/29/18 06:23 Eos % (Auto) 2.6 % (0.0-4.3) 12/29/18 06:23 Baso % (Auto) 1.1 % (0.0-1.8) 12/29/18 06:23 Lymph # 0.9 K/mm3 (1.2-5.4) L 12/29/18 06:23 [place] # 0.7 K/mm3 (0.0-0.8) 12/29/18 06:23 Eos # 0.1 K/mm3 (0.0-0.4) 12/29/18 06:23 Baso # 0.1 K/mm3 (0.0-0.1) 12/29/18 06:23 Seg Neutrophils % 65.3 % (40.0-70.0) 12/29/18 06:23 Seg Neutrophils # 3.5 K/mm3 (1.8-7.7) 12/29/18 06:23 Sodium 136 mmol/L (137-145) L 12/29/18 06:23 Potassium 3.1 mmol/L (3.6-5.0) L 12/29/18 06:23 Chloride 93.9 mmol/L (98-107) L 12/29/18 06:23 Carbon Dioxide 28 mmol/L (22-30) 12/29/18 06:23 17 mmol/L 12/29/18 06:23 BUN 78 mg/dL (7-17) H 12/29/18 06:23 2.4 mg/dL (0.7-1.2) H 12/29/18 06:23 Estimated GFR 24 ml/min 12/29/18 06:23 33 % 12/29/18 06:23 Glucose 234 mg/dL (65-100) H 12/29/18 06:23 POC Glucose 219 (70-105) H 12/29/18 10:37 Calcium 8.8 mg/dL (8.4-10.2) 12/29/18 06:23 Phosphorus 3.60 mg/dL (2.5-4.5) 12/29/18 10:30 Magnesium 1.80 mg/dL (1.7-2.3) 12/29/18 10:30 Iron 38 ug/dL (37-170) 12/29/18 10:31 TIBC 237 mcg/dL (250-450) L 12/29/18 10:31 191 mg/dl (192-382) L 12/29/18 10:31 288.9 ng/mL (13.0-400.0) 12/29/18 10:31 0.048 ng/mL (0.00-0.029) H 12/28/18 15:10 Triglycerides 84 mg/dL (2-149) 12/28/18 15:10 Cholesterol 104 mg/dL (50-199) 12/28/18 15:10 59 mg/dL (50-130) 12/28/18 15:10 35 mg/dL (40-59) L 12/28/18 15:10 2.97 % 12/28/18 15:10 PTH Intact 128.5 pg/mL (15-65) H 12/29/18 10:31 Active Medications - Current Medications Current Medications: Generic Name Dose Route Start Last Admin Trade Name Freq PRN Reason Stop Dose Admin Acetaminophen 650 mg 12/28/18 20:21 Tylenol PO Q4H PRN Pain MILD(1-3)/Fever >100.5/REILYL Apixaban 5 mg 12/29/18 12:00 Eliquis PO Q12HR [facility] Protocol Aspirin 81 mg 12/29/18 10:00 12/29/18 10:34 Baby Aspirin PO 81 mg QDAY HECTOR Administration Dextrose 50 ml 12/28/18 20:21 D50w (25gm) Syringe IV PRN PRN Hypoglycemia Docusate Sodium 100 mg 12/28/18 22:00 12/29/18 10:34 Colace PO 100 mg BID HECTOR Administration Ferrous Gluconate 324 mg 12/28/18 22:00 12/28/18 22:56 Fergon PO 324 mg BID HECTOR Administration Magnesium Sulfate 1 gm/ Sodium 52 mls @ 52 mls/hr 12/29/18 13:00 Chloride IV 12/29/18 13:59 ONCE ONE Insulin Glargine 15 units 12/28/18 22:00 12/28/18 22:56 Lantus SUB-Q 15 units QHS HECTOR Administration Insulin Human Lispro 0 unit 12/28/18 22:00 12/29/18 10:31 Humalog SUB-Q 2 unit ACHS HECTOR Administration Protocol Metolazone 2.5 mg 12/30/18 10:00 Zaroxolyn PO DAILY HECTOR Ondansetron HCl 4 mg 12/28/18 20:21 Zofran IV Q8H PRN Nausea And Vomiting Potassium Chloride 20 meq 12/29/18 22:00 K-Dur PO BID HECTOR Ropinirole HCl 1 mg 12/29/18 10:00 12/29/18 10:35 Requip PO 1 mg DAILY HECTOR Administration Sodium Chloride 10 ml 12/28/18 22:00 12/29/18 10:59 Sodium Chloride Flush Syringe 10 Ml IV 10 ml BID HECTOR Administration Sodium Chloride 10 ml 12/28/18 20:21 Sodium Chloride Flush Syringe 10 Ml IV PRN PRN LINE FLUSH
[2018-12-29] MEDS ORDERED: MAGNESIUM SULFATE 1 GM in WATER FOR INJ (PF) 23 ML IV ONE (13:00)
[2018-12-29] MEDS ORDERED: MAGNESIUM SULFATE 1 GM in NACL 0.9% 50 ML IV ONE (13:00)
[2018-12-29] MEDS: FERGON PO SCH ×2 (13:45→22:48)
[2018-12-29] MEDS: ELIQUIS PO SCH ×2 (13:50→22:48)
--- NOTE | 2018-12-29 15:02 | XRay Report ---
PROCEDURE: XR CHEST 1V AP TECHNIQUE: Chest radiograph single view. HISTORY: SOB COMPARISONS: 08/12/2018 . FINDINGS: Heart: Again seen is marked cardiomegaly. Mediastinum/Vessels: Normal. Lungs/Pleural space: No focal consolidation. No pleural effusion or pneumothorax. Bony thorax: No acute osseous abnormality. Median sternotomy wires and vascular clips are unchanged i n position. Life support devices: None.. IMPRESSION: No acute cardiopulmonary abnormality. Stable marked cardiomegaly. This document is electronically signed by Jennifer Hameed MD., December 29 2018 03:01:05 PM ET
[2018-12-29 22:05] LABS: Bilirubin,Urine NEG (Negative); Blood,Urine NEG (Negative); Color,Urine Yellow (Yellow); Mucus,Urine FEW /HPF; Urobilinogen,Urine < 2.0 mg/dL (<2.0); WBC,Urine < 1.0 /HPF (0.0-6.0)
[2018-12-29] MEDS: K-DUR PO SCH (22:48)
[2018-12-29] MEDS: MIRALAX 3350 PO PRN (22:49)
[2018-12-29] MEDS: LANTUS SUB-Q SCH (22:49)
[2018-12-29] MEDS: TYLENOL PO PRN (22:49)
[2018-12-30] MEDS: COREG PO SCH ×2 (01:07→22:29)
--- NOTE | 2018-12-30 01:33 | Ultrasound Report ---
PROCEDURE: US RENAL BILAT TECHNIQUE: Real-time sonography in multiple planes of the kidneys, ureters and urinary bladder was p erformed with image documentation. HISTORY: JOSE COMPARISONS: None . FINDINGS: RIGHT kidney: Normal echotexture. No focal renal mass, calculus, or hydronephrosis. Length: 10.1 cm . LEFT kidney: No hydronephrosis. There is a 27 mm cyst in the medial left renal cortex. Length: 11.3 cm. Bladder: Normal. No distention or wall thickening. There is mild stranding of the perinephric fat bilaterally IMPRESSION: There is a 27 mm left renal cortical cyst. No hydronephrosis. Mild perinephric fat stran ding is identified bilaterally. . This document is electronically signed by Staci Tobar DO., December 30 2018 01:32:04 AM ET
[2018-12-30 03:00] LABS: Creatinine,Urine 58.1 mg/dL (0.1-20.0); Microalbumin/Creatinine Ratio 526.6 ug/mg
[2018-12-30 06:09] LABS: Basophils # (Auto) 0.1 K/mm3 (0.0-0.1); Basophils % (Auto) 1.1 % (0.0-1.8); Eosinophils # (Auto) 0.1 K/mm3 (0.0-0.4); Eosinophils % (Auto) 1.2 % (0.0-4.3); Hematocrit 26.4 % (30.3-42.9); Hemoglobin 8.8 gm/dl (10.1-14.3); Lymphocytes # (Auto) 1.1 K/mm3 (1.2-5.4); Lymphocytes % (Auto) 15.8 % (13.4-35.0); Mean Corpuscular HGB Conc 33 % (30-34); Mean Corpuscular Volume 86 fl (79-97); Monocytes % (Auto) 13.2 % (0.0-7.3); Platelet Count 302 K/mm3 (140-440); Red Blood Count 3.07 M/mm3 (3.65-5.03); Red Cell Distribution Width 17.6 % (13.2-15.2)
[2018-12-30 06:30] LABS: Calcium 9.8 mg/dL (8.4-10.2)
--- NOTE | 2018-12-30 08:49 | Progress Note ---
Assessment and Plan Acute Kidney Injury possibly prerenal worsened in setting of hypotension, diuretics, on CKD Stage 3, r/o obstruction: Hypokalemia: Hyponatremia: - Renal function reviewed, SCr level was 1.9 today, yesterday's SCr level was 2.4 - Review of labs from 2015 to Aug showed SCr level between 1.5-1.8 - Bumex on hold, hospitalist restarted metolazone today - S/p 2L 0.9% NS Fluid Bolus on admission - Renal US showed 27 mm left renal cortical cyst, no hydronephrosis, mild perinephric fat stranding bilaterally - Replete potassium as needed - Hyponatremia improved - Renally dose meds - Briggs Catheter: No - Renal plan d/w Dr Walter Hypotension: Hx of Hypertension: - S/p 2 liter 0.9% NS Fluid Bolus on admission - Adjust BP medication regimen as needed CAD s/p CABG x 4: History of Proximal Atrial Tachycardia/ Atrial Flutter: Diastolic CHF: - Cardiology consulted, f/u recs - On Plavix - As per Cardiology Diabetes Mellitus Type 2 on insulin: - On SSI and Lantus - As per primary team Anemia: - Likely due to CKD - On oral iron Subjective Date of service: 12/30/18 Interval history: Pt seen in bed, states breathing ok at this time, tolerating diet, no nausea or vomiting, no family at bedside Objective - Vital Signs Vital signs: Vital Signs - 12hr 12/29/18 12/30/18 12/30/18 23:42 02:11 04:19 Temperature 98.0 F 98.0 F Pulse Rate 114 H 80 89 Respiratory 18 18 Rate Blood Pressure 175/112 178/104 O2 Sat by Pulse 96 97 Oximetry - General Appearance General appearance: well-developed EENT: ATNC Neck: no JVD Respiratory: Present: Decreased Breath Sounds Cardiology: S1S2 Gastrointestinal: normoactive bowel sounds Integumentary: warm and dry Neurologic: alert and oriented x3 Musculoskeletal: other (trace edema to BLE) Psychiatric: mood/affect appropriate, cooperative - Lab 12/30/18 05:41 12/30/18 05:41 Most recent lab results Calcium 9.8 mg/dL (8.4-10.2) 12/30/18 05:41 Phosphorus 3.60 mg/dL (2.5-4.5) 12/29/18 10:30 Magnesium 2.00 mg/dL (1.7-2.3) 12/30/18 05:41 58.1 mg/dL (0.1-20.0) H 12/29/18 21:30 32 mmol/L 12/29/18 21:30 66 mg/dL (5-11.8) H 12/29/18 21:30 Medications & Allergies - Medications Allergies/Adverse Reactions: Allergies nitroglycerin Adverse Reaction (Verified 12/28/18 14:32) Shortness of Breath Home Medications: Home Medications Medication Instructions Recorded Confirmed Last Taken Type Isosorbide Mononitrate [Isosorbide 120 mg PO DAILY 09/12/13 12/28/18 08/12/18 08:00 History Mononitrate ER] Ropinirole HCl 1 tab PO DAILY 09/12/13 12/28/18 08/11/18 21:00 History Carvedilol [Coreg] 25 mg PO DAILY 11/24/15 12/28/18 08/12/18 08:00 History Clonidine HCl [Catapres] 0.3 mg PO TID 11/24/15 12/28/18 08/12/18 08:00 History Clopidogrel Bisulfate [Plavix] 75 mg PO DAILY 11/24/15 12/28/18 08/12/18 08:00 History Oxaprozin 900 mg PO BID 11/24/15 12/28/18 08/12/18 08:00 History Potassium Chloride [Klor-Con 10] 20 meq PO DAILY 11/24/15 12/28/18 08/12/18 08:00 History hydrALAZINE [Apresoline TAB] 100 mg PO TID 11/24/15 12/28/18 08/12/18 08:00 History Doxazosin [Cardura] 4 mg PO DAILY 08/12/18 12/28/18 08/12/18 08:00 History Ferrous Gluconate 324 mg PO BID 08/12/18 12/28/18 08/12/18 08:00 History Bumetanide [Bumex 1 mg tab] 1 mg PO DAILY #30 tab 08/15/18 12/28/18 Unknown Rx Insulin Glargine,Hum.rec.anlog 15 units SQ QHS 30 Days vial 08/15/18 12/28/18 Unknown Rx [Lantus] metOLazone [Zaroxolyn] 2.5 mg PO DAILY 12/28/18 12/28/18 Unknown History Active Medications: Generic Name Dose Route Start Last Admin Trade Name Freq PRN Reason Stop Dose Admin Acetaminophen 650 mg 12/28/18 20:21 12/29/18 22:49 Tylenol PO 650 mg Q4H PRN Administration Pain MILD(1-3)/Fever >100.5/REILLY Apixaban 5 mg 12/29/18 12:00 12/29/18 22:48 Eliquis PO 5 mg Q12HR HECTOR Administration Protocol Aspirin 81 mg 12/29/18 10:00 12/29/18 10:34 Baby Aspirin PO 81 mg QDAY HECTOR Administration Carvedilol 25 mg 12/30/18 01:00 12/30/18 01:07 Coreg PO 25 mg DAILY@2200 HECTOR Administration Dextrose 50 ml 12/28/18 20:21 D50w (25gm) Syringe IV PRN PRN Hypoglycemia Docusate Sodium 100 mg 12/28/18 22:00 12/29/18 22:48 Colace PO 100 mg BID HECTOR Administration Ferrous Gluconate 324 mg 12/28/18 22:00 12/29/18 22:48 Fergon PO 324 mg BID HECTOR Administration Insulin Glargine 15 units 12/28/18 22:00 12/29/18 22:49 Lantus SUB-Q 15 units QHS HECTOR Administration Insulin Human Lispro 0 unit 12/28/18 22:00 12/29/18 22:49 Humalog SUB-Q 2 unit ACHS HECTOR Administration Protocol Metolazone 2.5 mg 12/30/18 10:00 Zaroxolyn PO DAILY HECTOR Ondansetron HCl 4 mg 12/28/18 20:21 Zofran IV Q8H PRN Nausea And Vomiting Polyethylene Glycol 17 gm 12/29/18 20:51 12/29/18 22:49 Miralax 3350 PO 17 gm QDAY PRN Administration Constipation Potassium Chloride 20 meq 12/29/18 22:00 12/29/18 22:48 K-Dur PO 20 meq BID HECTOR Administration Ropinirole HCl 1 mg 12/29/18 10:00 12/29/18 10:35 Requip PO 1 mg DAILY HECTOR Administration Sodium Chloride 10 ml 12/28/18 22:00 12/29/18 22:50 Sodium Chloride Flush Syringe 10 Ml IV 10 ml BID HECTOR Administration Sodium Chloride 10 ml 12/28/18 20:21 Sodium Chloride Flush Syringe 10 Ml IV PRN PRN LINE FLUSH
[2018-12-30] MEDS: HumaLOG SUB-Q SCH ×4 (10:43→22:31)
[2018-12-30] MEDS: ELIQUIS PO SCH ×2 (11:27→22:30)
[2018-12-30] MEDS: CARDURA PO SCH (11:27)
[2018-12-30] MEDS: COLACE PO SCH ×2 (11:27→22:30)
[2018-12-30] MEDS: K-DUR PO SCH ×2 (11:27→22:29)
[2018-12-30] MEDS: REQUIP PO SCH (11:28)
[2018-12-30] MEDS: BABY ASPIRIN PO SCH (11:28)
[2018-12-30] MEDS: ZAROXOLYN PO SCH (11:28)
[2018-12-30] MEDS: FERGON PO SCH ×2 (11:29→22:30)
[2018-12-30] MEDS: SODIUM CHLORIDE FLUSH SYRINGE 10 ML IV SCH ×2 (11:30→22:32)
[2018-12-30] MEDS ORDERED: NON-FORMULARY (Clonidine Hcl [Catapres] 0.3 MG) PO SCH (14:00)
[2018-12-30] MEDS: APRESOLINE PO SCH ×2 (14:17→22:30)
[2018-12-30] MEDS: CATAPRES PO SCH ×4 (14:17→22:29)
[2018-12-30] MEDS: BUMEX PO SCH (15:07)
--- NOTE | 2018-12-30 17:27 | Progress Note ---
Assessment and Plan Assessment and plan: --Acute kidney injury; probably secondary to vasomotor nephropathy Closely monitor renal function, and avoid nephrotoxins, gentle hydration, nephrology following --Hypotension; mild improvement Closely monitor blood pressures, hold antihypertensives --History of coronary artery disease status post CABG; stent in 1999 Continue current cardiac medications, cardiology following --Atrial fibrillation; rate controlled Continue current beta blockers, anticoagulation Eliquis Aspirin 81 mg , DC Plavix [increased discomfort bleeding ] patient already anemic Cardiology following --Chronic Diastolic congestive heart failure; EF 55-60% Continue current anti-failure medications and supportive care --Type 2 diabetes mellitus; Accu-Chek sliding scale coverage and ADA diet Insulin as needed --Chronic anemia; probably iron deficiency, kidney injury Closely monitor H&H and transfuse as needed --Morbid obesity; BMI 44.8 Advice weight reduction when medically stable --DVT prophylaxis;on Eliquis Monitor closely and adjust the management as needed Plan of care reviewed with the patient and her nurse. Disposition; possible discharge in 1-2 days stable History Interval history: Patient seen and examined medical records reviewed No new events reported by the nursing staff Patient feels slightly better no new complaints E signs noted Hospitalist Physical - Constitutional Vitals: Temp Pulse Resp BP Pulse Ox 99.9 F H 60 18 178/109 79 L 12/30/18 09:06 12/30/18 09:06 12/30/18 09:06 12/30/18 14:15 12/30/18 09:06 General appearance: Present: no acute distress, well-nourished, obese - EENT Eyes: Present: PERRL, EOM intact - Neck Neck: Present: supple, normal ROM - Respiratory Respiratory effort: normal Respiratory: bilateral: diminished, negative: rales, rhonchi, wheezing - Cardiovascular Rhythm: regular Heart Sounds: Present: S1 & S2 - Extremities Extremities: no ischemia, No edema - Abdominal General gastrointestinal: soft, non-tender, non-distended, normal bowel sounds - Integumentary Integumentary: Present: clear, warm - Psychiatric Psychiatric: appropriate mood/affect, cooperative - Neurologic Neurologic: moves all extremities Results - Labs CBC & Chem 7: 12/30/18 05:41 12/30/18 05:41 Labs: Laboratory Last Values WBC 7.2 K/mm3 (4.5-11.0) 12/30/18 05:41 RBC 3.07 M/mm3 (3.65-5.03) L 12/30/18 05:41 Hgb 8.8 gm/dl (10.1-14.3) L 12/30/18 05:41 Hct 26.4 % (30.3-42.9) L 12/30/18 05:41 MCV 86 fl (79-97) 12/30/18 05:41 MCH 29 pg (28-32) 12/30/18 05:41 MCHC 33 % (30-34) 12/30/18 05:41 RDW 17.6 % (13.2-15.2) H 12/30/18 05:41 Plt Count 302 K/mm3 (140-440) 12/30/18 05:41 Lymph % (Auto) 15.8 % (13.4-35.0) 12/30/18 05:41 [place] % (Auto) 13.2 % (0.0-7.3) H 12/30/18 05:41 Eos % (Auto) 1.2 % (0.0-4.3) 12/30/18 05:41 Baso % (Auto) 1.1 % (0.0-1.8) 12/30/18 05:41 Lymph # 1.1 K/mm3 (1.2-5.4) L 12/30/18 05:41 [place] # 1.0 K/mm3 (0.0-0.8) H 12/30/18 05:41 Eos # 0.1 K/mm3 (0.0-0.4) 12/30/18 05:41 Baso # 0.1 K/mm3 (0.0-0.1) 12/30/18 05:41 Seg Neutrophils % 68.7 % (40.0-70.0) 12/30/18 05:41 Seg Neutrophils # 5.0 K/mm3 (1.8-7.7) 12/30/18 05:41 Sodium 138 mmol/L (137-145) 12/30/18 05:41 Potassium 3.6 mmol/L (3.6-5.0) 12/30/18 05:41 Chloride 96.4 mmol/L (98-107) L 12/30/18 05:41 Carbon Dioxide 30 mmol/L (22-30) 12/30/18 05:41 15 mmol/L 12/30/18 05:41 BUN 63 mg/dL (7-17) H 12/30/18 05:41 1.9 mg/dL (0.7-1.2) H 12/30/18 05:41 Estimated GFR 31 ml/min 12/30/18 05:41 33 % 12/30/18 05:41 Glucose 160 mg/dL (65-100) H 12/30/18 05:41 POC Glucose 205 (70-105) H 12/30/18 16:52 Calcium 9.8 mg/dL (8.4-10.2) 12/30/18 05:41 Phosphorus 3.60 mg/dL (2.5-4.5) 12/29/18 10:30 Magnesium 2.00 mg/dL (1.7-2.3) 12/30/18 05:41 Iron 38 ug/dL (37-170) 12/29/18 10:31 TIBC 237 mcg/dL (250-450) L 12/29/18 10:31 191 mg/dl (192-382) L 12/29/18 10:31 288.9 ng/mL (13.0-400.0) 12/29/18 10:31 0.048 ng/mL (0.00-0.029) H 12/28/18 15:10 Triglycerides 84 mg/dL (2-149) 12/28/18 15:10 Cholesterol 104 mg/dL (50-199) 12/28/18 15:10 59 mg/dL (50-130) 12/28/18 15:10 35 mg/dL (40-59) L 12/28/18 15:10 2.97 % 12/28/18 15:10 PTH Intact 128.5 pg/mL (15-65) H 12/29/18 10:31 Yellow (Yellow) 12/29/18 21:30 Clear (Clear) 12/29/18 21:30 6.0 (5.0-7.0) 12/29/18 21:30 Ur Specific [place] 1.011 (1.003-1.030) 12/29/18 21:30 30 mg/dl mg/dL (Negative) 12/29/18 21:30 Neg mg/dL (Negative) 12/29/18 21:30 Neg mg/dL (Negative) 12/29/18 21:30 Neg (Negative) 12/29/18 21:30 Neg (Negative) 12/29/18 21:30 Neg (Negative) 12/29/18 21:30 < 2.0 mg/dL (<2.0) 12/29/18 21:30 Ur Leukocyte Esterase Neg (Negative) 12/29/18 21:30 < 1.0 /HPF (0.0-6.0) 12/29/18 21:30 3.0 /HPF (0.0-6.0) 12/29/18 21:30 U Epithel Cells (Auto) 4.0 /HPF (0-13.0) 12/29/18 21:30 Few /HPF 12/29/18 21:30 58.1 mg/dL (0.1-20.0) H 12/29/18 21:30 30.6 mg/dL (0.1-34.0) 12/29/18 21:30 Microalb/Creat Ratio 526.6 ug/mg 12/29/18 21:30 32 mmol/L 12/29/18 21:30 66 mg/dL (5-11.8) H 12/29/18 21:30 Active Medications - Current Medications Current Medications: Generic Name Dose Route Start Last Admin Trade Name Freq PRN Reason Stop Dose Admin Acetaminophen 650 mg 12/28/18 20:21 12/29/18 22:49 Tylenol PO 650 mg Q4H PRN Administration Pain MILD(1-3)/Fever >100.5/REILLY Apixaban 5 mg 12/29/18 12:00 12/30/18 11:27 Eliquis PO 5 mg Q12HR HECTOR Administration Protocol Aspirin 81 mg 12/29/18 10:00 12/30/18 11:28 Baby Aspirin PO 81 mg QDAY HECTOR Administration Bumetanide 1 mg 12/30/18 10:00 12/30/18 15:07 Bumex PO 1 mg DAILY HECTOR Administration Carvedilol 25 mg 12/30/18 01:00 12/30/18 01:07 Coreg PO 25 mg DAILY@2200 HECTOR Administration Clonidine HCl 0.1 mg 12/30/18 14:00 12/30/18 14:17 Catapres PO 0.1 mg TID HECTOR Administration Clonidine HCl 0.2 mg 12/30/18 14:00 12/30/18 14:17 Catapres PO 0.2 mg Q8HR HECTOR Administration Dextrose 50 ml 12/28/18 20:21 D50w (25gm) Syringe IV PRN PRN Hypoglycemia Docusate Sodium 100 mg 12/28/18 22:00 12/30/18 11:27 Colace PO 100 mg BID HECTOR Administration Doxazosin Mesylate 4 mg 12/30/18 10:00 12/30/18 11:27 Cardura PO 4 mg DAILY HECTOR Administration Ferrous Gluconate 324 mg 12/28/18 22:00 12/30/18 11:29 Fergon PO 324 mg BID HECTOR Administration Hydralazine HCl 100 mg 12/30/18 14:00 12/30/18 14:17 Apresoline PO 100 mg TID HECTOR Administration Insulin Glargine 15 units 12/28/18 22:00 12/29/18 22:49 Lantus SUB-Q 15 units QHS HECTOR Administration Insulin Human Lispro 0 unit 12/28/18 22:00 12/30/18 14:10 Humalog SUB-Q 2 unit ACHS HECTOR Administration Protocol Metolazone 2.5 mg 12/30/18 10:00 12/30/18 11:28 Zaroxolyn PO 2.5 mg DAILY HECTOR Administration Miscellaneous Medication 900 mg 12/30/18 10:00 Oxaprozin [Oxaprozin] PO BID HECTOR Ondansetron HCl 4 mg 12/28/18 20:21 Zofran IV Q8H PRN Nausea And Vomiting Polyethylene Glycol 17 gm 12/29/18 20:51 12/29/18 22:49 Miralax 3350 PO 17 gm QDAY PRN Administration Constipation Potassium Chloride 20 meq 12/29/18 22:00 12/30/18 11:27 K-Dur PO 20 meq BID HECTOR Administration Ropinirole HCl 1 mg 12/29/18 10:00 12/30/18 11:28 Requip PO 1 mg DAILY HECTOR Administration Sodium Chloride 10 ml 12/28/18 22:00 12/30/18 11:30 Sodium Chloride Flush Syringe 10 Ml IV 10 ml BID HECTOR Administration Sodium Chloride 10 ml 12/28/18 20:21 Sodium Chloride Flush Syringe 10 Ml IV PRN PRN LINE FLUSH
--- NOTE | 2018-12-30 17:47 | Progress Note ---
Assessment and Plan Continue current cardiac management. Will closely monitor blood pressures since antihypertensives just resumed this afternoon. Patient seen in conjunction with Dr. Saravia, who agrees with assessment and plan. - Patient Problems (1) Acute on chronic renal failure Current Visit: Yes Status: Acute (2) Atrial flutter Current Visit: Yes Status: Acute (3) Hypotension Current Visit: Yes Status: Resolved (4) CAD (coronary artery disease) Current Visit: No Status: Chronic (5) Chronic venous insufficiency Current Visit: No Status: Chronic (6) Diabetes Current Visit: No Status: Chronic (7) HTN (hypertension) Current Visit: No Status: Chronic Qualifiers: Hypertension type: essential hypertension Qualified Code(s): I10 - Essential (primary) hypertension (8) History of coronary artery bypass graft Current Visit: No Status: Chronic (9) (HFpEF) heart failure with preserved ejection fraction Current Visit: Yes Status: Chronic (10) Anemia Current Visit: Yes Status: Acute Subjective Date of service: 12/30/18 Interval history: Patient resting in bed comfortably with family at bedside. No complaints. BP elevated, but antihypertensives just restarted this afternoon. Was switched from Plavix to Eliquis on 12/29. Atrial flutter with rates in the 80s on telemetry. Objective Last Vital Signs Temp 99.9 F H 12/30/18 09:06 Pulse 60 12/30/18 09:06 Resp 18 12/30/18 09:06 BP 178/109 12/30/18 14:15 Pulse Ox 79 L 12/30/18 09:06 - Physical Examination General: No Apparent Distress HEENT: Positive: PERRL Neck: Positive: neck supple Cardiac: Positive: irregularly irregular Lungs: Positive: clear to auscultation Neuro: Positive: Grossly Intact Abdomen: Positive: Unremarkable, Soft, Active Bowel Sounds. Negative: Hepatosplenomegaly Skin: Positive: Clear Musculoskeletal: Normal Range of Motion Extremities: Present: normal. Absent: edema - Labs and Meds CBC 12/30/18 Range/Units 05:41 WBC 7.2 (4.5-11.0) K/mm3 RBC 3.07 L (3.65-5.03) M/mm3 Hgb 8.8 L (10.1-14.3) gm/dl Hct 26.4 L (30.3-42.9) % Plt Count 302 (140-440) K/mm3 Lymph # 1.1 L (1.2-5.4) K/mm3 [place] # 1.0 H (0.0-0.8) K/mm3 Eos # 0.1 (0.0-0.4) K/mm3 Baso # 0.1 (0.0-0.1) K/mm3 Comprehensive Metabolic Panel 12/30/18 Range/Units 05:41 Sodium 138 (137-145) mmol/L Potassium 3.6 (3.6-5.0) mmol/L Chloride 96.4 L (98-107) mmol/L Carbon Dioxide 30 (22-30) mmol/L BUN 63 H (7-17) mg/dL Creatinine 1.9 H (0.7-1.2) mg/dL Glucose 160 H (65-100) mg/dL Calcium 9.8 (8.4-10.2) mg/dL - Imaging and Cardiology EKG: image reviewed (83 bpm, atrial flutter) Echo: report reviewed (EF55-60%) - Telemetry EKG Rhythm: Atrial Flutter
[2018-12-30] MEDS: LANTUS SUB-Q SCH (22:30)
[2018-12-31] MEDS: TYLENOL PO PRN ×3 (01:13→20:30)
[2018-12-31 02:40] LABS: Basophils # (Auto) 0.1 K/mm3 (0.0-0.1); Basophils % (Auto) 0.9 % (0.0-1.8); Eosinophils % (Auto) 0.4 % (0.0-4.3); Hematocrit 26.8 % (30.3-42.9); Hemoglobin 8.8 gm/dl (10.1-14.3); Lymphocytes # (Auto) 0.9 K/mm3 (1.2-5.4); Lymphocytes % (Auto) 12.4 % (13.4-35.0); Mean Corpuscular HGB Conc 33 % (30-34); Mean Corpuscular Volume 86 fl (79-97); Monocytes # (Auto) 0.9 K/mm3 (0.0-0.8); Monocytes % (Auto) 13.7 % (0.0-7.3); Platelet Count 289 K/mm3 (140-440); Red Cell Distribution Width 17.5 % (13.2-15.2)
[2018-12-31] MEDS: CATAPRES PO SCH ×5 (06:00→21:00)
[2018-12-31] MEDS: HumaLOG SUB-Q SCH ×4 (08:24→22:40)
[2018-12-31 08:38] LABS: Calcium 9.5 mg/dL (8.4-10.2)
[2018-12-31] MEDS: ELIQUIS PO SCH ×2 (10:20→22:32)
[2018-12-31] MEDS: CARDURA PO SCH (10:20)
[2018-12-31] MEDS: BABY ASPIRIN PO SCH (10:20)
[2018-12-31] MEDS: REQUIP PO SCH (10:20)
[2018-12-31] MEDS: BUMEX PO SCH (10:20)
[2018-12-31] MEDS: SODIUM CHLORIDE FLUSH SYRINGE 10 ML IV SCH ×2 (10:21→22:40)
[2018-12-31] MEDS: ZAROXOLYN PO SCH (10:21)
[2018-12-31] MEDS: FERGON PO SCH ×2 (10:21→23:49)
[2018-12-31] MEDS: COLACE PO SCH ×2 (10:23→22:32)
[2018-12-31] MEDS: K-DUR PO SCH ×2 (10:23→22:34)
[2018-12-31] MEDS: APRESOLINE PO SCH ×3 (10:33→21:00)
--- NOTE | 2018-12-31 12:00 | Progress Note ---
Assessment and Plan Currently stable cardiac status. Cont present cardiac management. S/p lexiscan MPI stress test 08/2018 which was negative. Echo done 08/2018 showed EF 55-60%, impaired relaxation, atrial septal aneurysm, mod to severe TR, RVSP 40mmHg. The patient has been seen in conjunction with Dr. Luevano who agrees with the assessment and plan of care. - Patient Problems (1) Hypotension Current Visit: Yes Status: Resolved (2) Atrial fibrillation and flutter Current Visit: Yes Status: Acute Plan to address problem: new onset (3) Acute on chronic renal failure Current Visit: Yes Status: Acute (4) Anemia Current Visit: Yes Status: Acute (5) CAD (coronary artery disease) Current Visit: Yes Status: Chronic (6) History of coronary artery bypass graft Current Visit: Yes Status: Chronic (7) Stented coronary artery Current Visit: Yes Status: Chronic (8) History of chronic hypertension Current Visit: Yes Status: Chronic (9) Hyperlipidemia Current Visit: Yes Status: Chronic (10) Diabetes Current Visit: Yes Status: Chronic (11) Chronic venous insufficiency Current Visit: Yes Status: Chronic (12) Fever Current Visit: Yes Status: Acute Subjective Date of service: 12/31/18 Principal diagnosis: hypotension; AFib; AFlutter Interval history: pt resting in bed, no current cardiac complaints, states she is feeling better. tele reviewed - pt in AFlutter HR 80s. Objective Last Vital Signs Temp 98.9 F 12/31/18 07:15 Pulse 86 12/31/18 07:15 Resp 18 12/31/18 07:15 BP 138/73 12/31/18 07:15 Pulse Ox 99 12/31/18 07:15 - Physical Examination General: No Apparent Distress HEENT: Positive: PERRL Neck: Positive: neck supple Cardiac: Positive: irregularly irregular, S1/S2 Lungs: Positive: Decreased Breath Sounds Neuro: Positive: Grossly Intact Abdomen: Positive: Unremarkable, Soft, Active Bowel Sounds. Negative: Hepatosplenomegaly Skin: Positive: Clear Musculoskeletal: Normal Range of Motion Extremities: Present: normal. Absent: edema - Labs and Meds CBC 12/31/18 Range/Units 02:03 WBC 6.9 (4.5-11.0) K/mm3 RBC 3.10 L (3.65-5.03) M/mm3 Hgb 8.8 L (10.1-14.3) gm/dl Hct 26.8 L (30.3-42.9) % Plt Count 289 (140-440) K/mm3 Lymph # 0.9 L (1.2-5.4) K/mm3 [place] # 0.9 H (0.0-0.8) K/mm3 Eos # 0.0 (0.0-0.4) K/mm3 Baso # 0.1 (0.0-0.1) K/mm3 Comprehensive Metabolic Panel 12/31/18 Range/Units 07:43 Sodium 139 (137-145) mmol/L Potassium 3.6 (3.6-5.0) mmol/L Chloride 98.8 (98-107) mmol/L Carbon Dioxide 30 (22-30) mmol/L BUN 52 H (7-17) mg/dL Creatinine 1.8 H (0.7-1.2) mg/dL Glucose 62 L (65-100) mg/dL Calcium 9.5 (8.4-10.2) mg/dL - Imaging and Cardiology EKG: image reviewed (83 bpm, atrial flutter) Echo: report reviewed (EF55-60%) - Telemetry EKG Rhythm: Atrial Flutter
--- NOTE | 2018-12-31 12:10 | Progress Note ---
Assessment and Plan Acute Kidney Injury possibly prerenal worsened in setting of hypotension, diuretics, on CKD Stage 3, r/o obstruction: Hypokalemia: Hyponatremia: - Cr is trending down - Review of labs from 2015 to Aug showed SCr level between 1.5-1.8 - Renal US showed 27 mm left renal cortical cyst, no hydronephrosis, mild perinephric fat stranding bilaterally - Replete potassium as needed - Hyponatremia improved - Renally dose meds - Briggs Catheter: No Hypotension: Hx of Hypertension: - Adjust BP medication regimen as needed CAD s/p CABG x 4: History of Proximal Atrial Tachycardia/ Atrial Flutter: Diastolic CHF: - Cardiology consulted, f/u recs - On Plavix - As per Cardiology Diabetes Mellitus Type 2 on insulin: - On SSI and Lantus - As per primary team Anemia: - Likely due to CKD - On oral iron Subjective Date of service: 12/31/18 Principal diagnosis: JOSE Interval history: denies acute issues, swelling is slowly improving Objective - Vital Signs Vital signs: Vital Signs - 12hr 12/31/18 12/31/18 12/31/18 01:12 03:47 07:15 Temperature 102.0 F H 99.6 F 98.9 F Pulse Rate 92 H 87 86 Respiratory 20 18 18 Rate Blood Pressure 148/87 138/73 Blood Pressure 134/88 [Left] O2 Sat by Pulse 98 99 99 Oximetry - General Appearance General appearance: well-developed, well-nourished, obese EENT: ATNC, PERRL, mucous membranes dry Neck: no JVD, no carotid bruit Respiratory: Present: Decreased Breath Sounds. Absent: Rales, Ronchi Cardiology: regular, S1S2 Gastrointestinal: normoactive bowel sounds Integumentary: warm and dry Neurologic: no focal deficit, no asterixis, alert and oriented x3 Musculoskeletal: other (non pitting edema in BLE) Psychiatric: mood/affect appropriate, cooperative - Lab 12/31/18 02:03 12/31/18 07:43 Most recent lab results Calcium 9.5 mg/dL (8.4-10.2) 12/31/18 07:43 Phosphorus 3.60 mg/dL (2.5-4.5) 12/29/18 10:30 Magnesium 2.00 mg/dL (1.7-2.3) 12/30/18 05:41 58.1 mg/dL (0.1-20.0) H 12/29/18 21:30 32 mmol/L 12/29/18 21:30 66 mg/dL (5-11.8) H 12/29/18 21:30 Medications & Allergies - Medications Allergies/Adverse Reactions: Allergies nitroglycerin Adverse Reaction (Verified 12/28/18 14:32) Shortness of Breath Home Medications: Home Medications Medication Instructions Recorded Confirmed Last Taken Type Isosorbide Mononitrate [Isosorbide 120 mg PO DAILY 09/12/13 12/28/18 08/12/18 08:00 History Mononitrate ER] Ropinirole HCl 1 tab PO DAILY 09/12/13 12/28/18 08/11/18 21:00 History Carvedilol [Coreg] 25 mg PO DAILY 11/24/15 12/28/18 08/12/18 08:00 History Clonidine HCl [Catapres] 0.3 mg PO TID 11/24/15 12/28/18 08/12/18 08:00 History Clopidogrel Bisulfate [Plavix] 75 mg PO DAILY 11/24/15 12/28/18 08/12/18 08:00 History Oxaprozin 900 mg PO BID 11/24/15 12/28/18 08/12/18 08:00 History Potassium Chloride [Klor-Con 10] 20 meq PO DAILY 11/24/15 12/28/18 08/12/18 08:00 History hydrALAZINE [Apresoline TAB] 100 mg PO TID 11/24/15 12/28/18 08/12/18 08:00 History Doxazosin [Cardura] 4 mg PO DAILY 08/12/18 12/28/18 08/12/18 08:00 History Ferrous Gluconate 324 mg PO BID 08/12/18 12/28/18 08/12/18 08:00 History Bumetanide [Bumex 1 mg tab] 1 mg PO DAILY #30 tab 08/15/18 12/28/18 Unknown Rx Insulin Glargine,Hum.rec.anlog 15 units SQ QHS 30 Days vial 08/15/18 12/28/18 Unknown Rx [Lantus] metOLazone [Zaroxolyn] 2.5 mg PO DAILY 12/28/18 12/28/18 Unknown History Active Medications: Generic Name Dose Route Start Last Admin Trade Name Freq PRN Reason Stop Dose Admin Acetaminophen 650 mg 12/28/18 20:21 12/31/18 01:13 Tylenol PO 650 mg Q4H PRN Administration Pain MILD(1-3)/Fever >100.5/REILLY Apixaban 5 mg 12/29/18 12:00 12/31/18 10:20 Eliquis PO 5 mg Q12HR HECTOR Administration Protocol Aspirin 81 mg 12/29/18 10:00 12/31/18 10:20 Baby Aspirin PO 81 mg QDAY HECTOR Administration Bumetanide 1 mg 12/30/18 10:00 12/31/18 10:20 Bumex PO 1 mg DAILY HECTOR Administration Carvedilol 25 mg 12/30/18 01:00 12/30/18 22:29 Coreg PO 25 mg DAILY@2200 HECTOR Administration Clonidine HCl 0.1 mg 12/30/18 14:00 12/31/18 10:34 Catapres PO 0.1 mg TID HECTOR Administration Clonidine HCl 0.2 mg 12/30/18 14:00 12/31/18 06:00 Catapres PO 0.2 mg Q8HR HETCOR Administration Dextrose 50 ml 12/28/18 20:21 D50w (25gm) Syringe IV PRN PRN Hypoglycemia Docusate Sodium 100 mg 12/28/18 22:00 12/31/18 10:23 Colace PO 100 mg BID HECTOR Administration Doxazosin Mesylate 4 mg 12/30/18 10:00 12/31/18 10:20 Cardura PO 4 mg DAILY HECTOR Administration Ferrous Gluconate 324 mg 12/28/18 22:00 12/31/18 10:21 Fergon PO 324 mg BID HECTOR Administration Hydralazine HCl 100 mg 12/30/18 14:00 12/31/18 10:33 Apresoline PO 100 mg TID HECTOR Administration Ceftriaxone Sodium 1 gm in 50 mls @ 100 mls/hr 12/31/18 11:00 Rocephin/Ns 1 Gm/50 Ml IV Q24HR HECTOR Protocol Insulin Glargine 15 units 12/28/18 22:00 12/30/18 22:30 Lantus SUB-Q 15 units QHS HECTOR Administration Insulin Human Lispro 0 unit 12/28/18 22:00 12/31/18 08:24 Humalog SUB-Q Not Given ACHS HECTOR Protocol Metolazone 2.5 mg 12/30/18 10:00 12/31/18 10:21 Zaroxolyn PO 2.5 mg DAILY HECTOR Administration Ondansetron HCl 4 mg 12/28/18 20:21 Zofran IV Q8H PRN Nausea And Vomiting Polyethylene Glycol 17 gm 12/29/18 20:51 12/29/18 22:49 Miralax 3350 PO 17 gm QDAY PRN Administration Constipation Potassium Chloride 20 meq 12/29/18 22:00 12/31/18 10:23 K-Dur PO 20 meq BID HECTOR Administration Ropinirole HCl 1 mg 12/29/18 10:00 12/31/18 10:20 Requip PO 1 mg DAILY HECTOR Administration Sodium Chloride 10 ml 12/28/18 22:00 12/31/18 10:21 Sodium Chloride Flush Syringe 10 Ml IV 10 ml BID HECTOR Administration Sodium Chloride 10 ml 12/28/18 20:21 Sodium Chloride Flush Syringe 10 Ml IV PRN PRN LINE FLUSH
[2018-12-31] MEDS: ROCEPHIN/NS 1 GM/50 ML 1 GM/50 ML BAG IV SCH (12:20)
[2018-12-31 12:59] LABS: Bacteria,Urine 1+ /HPF (Negative); Bilirubin,Urine NEG (Negative); Blood,Urine NEG (Negative); Color,Urine Yellow (Yellow); Mucus,Urine FEW /HPF; Urobilinogen,Urine < 2.0 mg/dL (<2.0)
--- NOTE | 2018-12-31 14:52 | Progress Note ---
Assessment and Plan Assessment and plan: --Febrile illness: Antipyretics, blood and urine cultures, empiric antibiotics Supportive care --Acute kidney injury; probably secondary to vasomotor nephropathy Closely monitor renal function, and avoid nephrotoxins, creatinine level trending down --Hypotension; mild improvement Closely monitor blood pressures, antihypertensives as needed --History of coronary artery disease status post CABG; stent in 1999 Continue current cardiac medications, cardiology following --Atrial fibrillation; rate controlled on beta blockers, anticoagulation Eliquis Aspirin 81 mg , DC Plavix [increased risk of bleeding ] patient already anemic Cardiology following --Chronic Diastolic congestive heart failure; EF 55-60% Continue current anti-failure medications and supportive care --Type 2 diabetes mellitus; Accu-Chek sliding scale coverage and ADA diet Insulin as needed --Chronic anemia; probably iron deficiency, kidney injury Closely monitor H&H and transfuse as needed --Morbid obesity; BMI 39 Advice weight reduction when medically stable --DVT prophylaxis;on Eliquis Monitor closely and adjust the management as needed Plan of care reviewed with the patient and her nurse. Disposition; possible discharge in 1-2 days stable History Interval history: Patient seen and examined medical records reviewed Patient feels slightly better spiked temperature 102F That headache oriented 3 Complaints of generalized weakness Vital signs noted Hospitalist Physical - Constitutional Vitals: Temp Pulse Resp BP Pulse Ox 98.2 F 110 H 18 127/70 96 12/31/18 13:38 12/31/18 13:38 12/31/18 13:38 12/31/18 13:38 12/31/18 13:38 General appearance: Present: no acute distress, well-nourished, obese - EENT Eyes: Present: PERRL, EOM intact - Neck Neck: Present: supple, normal ROM - Respiratory Respiratory effort: normal Respiratory: bilateral: diminished, negative: rales, rhonchi, wheezing - Cardiovascular Rhythm: regular Heart Sounds: Present: S1 & S2 - Extremities Extremities: no ischemia, No edema - Abdominal General gastrointestinal: soft, non-tender, non-distended, normal bowel sounds - Integumentary Integumentary: Present: clear, warm - Psychiatric Psychiatric: appropriate mood/affect, cooperative - Neurologic Neurologic: moves all extremities Results - Labs CBC & Chem 7: 12/31/18 02:03 12/31/18 07:43 Labs: Laboratory Last Values WBC 6.9 K/mm3 (4.5-11.0) 12/31/18 02:03 RBC 3.10 M/mm3 (3.65-5.03) L 12/31/18 02:03 Hgb 8.8 gm/dl (10.1-14.3) L 12/31/18 02:03 Hct 26.8 % (30.3-42.9) L 12/31/18 02:03 MCV 86 fl (79-97) 12/31/18 02:03 MCH 28 pg (28-32) 12/31/18 02:03 MCHC 33 % (30-34) 12/31/18 02:03 RDW 17.5 % (13.2-15.2) H 12/31/18 02:03 Plt Count 289 K/mm3 (140-440) 12/31/18 02:03 Lymph % (Auto) 12.4 % (13.4-35.0) L 12/31/18 02:03 [place] % (Auto) 13.7 % (0.0-7.3) H 12/31/18 02:03 Eos % (Auto) 0.4 % (0.0-4.3) 12/31/18 02:03 Baso % (Auto) 0.9 % (0.0-1.8) 12/31/18 02:03 Lymph # 0.9 K/mm3 (1.2-5.4) L 12/31/18 02:03 [place] # 0.9 K/mm3 (0.0-0.8) H 12/31/18 02:03 Eos # 0.0 K/mm3 (0.0-0.4) 12/31/18 02:03 Baso # 0.1 K/mm3 (0.0-0.1) 12/31/18 02:03 Seg Neutrophils % 72.6 % (40.0-70.0) H 12/31/18 02:03 Seg Neutrophils # 5.0 K/mm3 (1.8-7.7) 12/31/18 02:03 Sodium 139 mmol/L (137-145) 12/31/18 07:43 Potassium 3.6 mmol/L (3.6-5.0) 12/31/18 07:43 Chloride 98.8 mmol/L (98-107) 12/31/18 07:43 Carbon Dioxide 30 mmol/L (22-30) 12/31/18 07:43 14 mmol/L 12/31/18 07:43 BUN 52 mg/dL (7-17) H 12/31/18 07:43 1.8 mg/dL (0.7-1.2) H 12/31/18 07:43 Estimated GFR 33 ml/min 12/31/18 07:43 29 % 12/31/18 07:43 Glucose 62 mg/dL (65-100) L 12/31/18 07:43 POC Glucose 184 (70-105) H 12/31/18 12:19 Lactic Acid 0.70 mmol/L (0.7-2.0) 12/31/18 02:03 Calcium 9.5 mg/dL (8.4-10.2) 12/31/18 07:43 Phosphorus 3.60 mg/dL (2.5-4.5) 12/29/18 10:30 Magnesium 2.00 mg/dL (1.7-2.3) 12/30/18 05:41 Iron 38 ug/dL (37-170) 12/29/18 10:31 TIBC 237 mcg/dL (250-450) L 12/29/18 10:31 191 mg/dl (192-382) L 12/29/18 10:31 288.9 ng/mL (13.0-400.0) 12/29/18 10:31 0.048 ng/mL (0.00-0.029) H 12/28/18 15:10 Triglycerides 84 mg/dL (2-149) 12/28/18 15:10 Cholesterol 104 mg/dL (50-199) 12/28/18 15:10 59 mg/dL (50-130) 12/28/18 15:10 35 mg/dL (40-59) L 12/28/18 15:10 2.97 % 12/28/18 15:10 TSH 0.920 mlU/mL (0.270-4.200) 12/31/18 13:16 Free T4 1.21 ng/dL (0.76-1.46) 12/31/18 13:15 PTH Intact 128.5 pg/mL (15-65) H 12/29/18 10:31 Yellow (Yellow) 12/31/18 12:15 Slightly-cloudy (Clear) 12/31/18 12:15 5.0 (5.0-7.0) 12/31/18 12:15 Ur Specific [place] 1.010 (1.003-1.030) 12/31/18 12:15 30 mg/dl mg/dL (Negative) 12/31/18 12:15 Neg mg/dL (Negative) 12/31/18 12:15 Neg mg/dL (Negative) 12/31/18 12:15 Neg (Negative) 12/31/18 12:15 Neg (Negative) 12/31/18 12:15 Neg (Negative) 12/31/18 12:15 < 2.0 mg/dL (<2.0) 12/31/18 12:15 Ur Leukocyte Esterase Tr (Negative) 12/31/18 12:15 2.0 /HPF (0.0-6.0) 12/31/18 12:15 6.0 /HPF (0.0-6.0) 12/31/18 12:15 U Epithel Cells (Auto) 5.0 /HPF (0-13.0) 12/31/18 12:15 1+ /HPF (Negative) 12/31/18 12:15 Few /HPF 12/31/18 12:15 58.1 mg/dL (0.1-20.0) H 12/29/18 21:30 30.6 mg/dL (0.1-34.0) 12/29/18 21:30 Microalb/Creat Ratio 526.6 ug/mg 12/29/18 21:30 32 mmol/L 12/29/18 21:30 66 mg/dL (5-11.8) H 12/29/18 21:30 Active Medications - Current Medications Current Medications: Generic Name Dose Route Start Last Admin Trade Name Freq PRN Reason Stop Dose Admin Acetaminophen 650 mg 12/28/18 20:21 12/31/18 12:31 Tylenol PO 650 mg Q4H PRN Administration Pain MILD(1-3)/Fever >100.5/REILLY Apixaban 5 mg 12/29/18 12:00 12/31/18 10:20 Eliquis PO 5 mg Q12HR HECTOR Administration Protocol Aspirin 81 mg 12/29/18 10:00 12/31/18 10:20 Baby Aspirin PO 81 mg QDAY HECTOR Administration Bumetanide 1 mg 12/30/18 10:00 12/31/18 10:20 Bumex PO 1 mg DAILY HECTOR Administration Carvedilol 25 mg 12/30/18 01:00 12/30/18 22:29 Coreg PO 25 mg DAILY@2200 HECTOR Administration Clonidine HCl 0.1 mg 12/30/18 14:00 12/31/18 14:21 Catapres PO Not Given TID HECTOR Dextrose 50 ml 12/28/18 20:21 D50w (25gm) Syringe IV PRN PRN Hypoglycemia Docusate Sodium 100 mg 12/28/18 22:00 12/31/18 10:23 Colace PO 100 mg BID HECTOR Administration Doxazosin Mesylate 4 mg 12/30/18 10:00 12/31/18 10:20 Cardura PO 4 mg DAILY HECTOR Administration Ferrous Gluconate 324 mg 12/28/18 22:00 12/31/18 10:21 Fergon PO 324 mg BID HECTOR Administration Hydralazine HCl 100 mg 12/30/18 14:00 12/31/18 14:21 Apresoline PO Not Given TID HECTOR Ceftriaxone Sodium 1 gm in 50 mls @ 100 mls/hr 12/31/18 11:00 12/31/18 12:20 Rocephin/Ns 1 Gm/50 Ml IV 100 mls/hr Q24HR HECTOR Administration Protocol Insulin Glargine 15 units 12/28/18 22:00 12/30/18 22:30 Lantus SUB-Q 15 units QHS HECTOR Administration Insulin Human Lispro 0 unit 12/28/18 22:00 12/31/18 12:20 Humalog SUB-Q 1 unit ACHS HECTOR Administration Protocol Metolazone 2.5 mg 12/30/18 10:00 12/31/18 10:21 Zaroxolyn PO 2.5 mg DAILY HECTOR Administration Ondansetron HCl 4 mg 12/28/18 20:21 Zofran IV Q8H PRN Nausea And Vomiting Polyethylene Glycol 17 gm 12/29/18 20:51 12/29/18 22:49 Miralax 3350 PO 17 gm QDAY PRN Administration Constipation Potassium Chloride 20 meq 12/29/18 22:00 12/31/18 10:23 K-Dur PO 20 meq BID HECTOR Administration Ropinirole HCl 1 mg 12/29/18 10:00 12/31/18 10:20 Requip PO 1 mg DAILY HECTOR Administration Sodium Chloride 10 ml 12/28/18 22:00 12/31/18 10:21 Sodium Chloride Flush Syringe 10 Ml IV 10 ml BID HECTOR Administration Sodium Chloride 10 ml 12/28/18 20:21 Sodium Chloride Flush Syringe 10 Ml IV PRN PRN LINE FLUSH
[2018-12-31] MEDS: COREG PO SCH (22:32)
[2018-12-31] MEDS: LANTUS SUB-Q SCH (22:34)
[2018-12-31] MEDS: OXAPROZIN PO SCH ×2 (22:59→23:00)
[2019-01-01] MEDS: TYLENOL PO PRN ×2 (04:14→14:21)
[2019-01-01 06:18] LABS: Hematocrit 25.8 % (30.3-42.9); Hemoglobin 8.4 gm/dl (10.1-14.3); Mean Corpuscular HGB Conc 32 % (30-34); Mean Corpuscular Volume 87 fl (79-97); Platelet Count 254 K/mm3 (140-440); Red Blood Count 2.96 M/mm3 (3.65-5.03); Red Cell Distribution Width 17.4 % (13.2-15.2)
[2019-01-01 06:40] LABS: Calcium 9.2 mg/dL (8.4-10.2)
[2019-01-01] MEDS: HumaLOG SUB-Q SCH ×4 (07:44→22:25)
[2019-01-01] MEDS: CATAPRES PO SCH ×3 (07:45→23:52)
[2019-01-01] MEDS: APRESOLINE PO SCH ×3 (07:45→21:46)
[2019-01-01] MEDS: K-DUR PO SCH ×2 (09:42→21:47)
[2019-01-01] MEDS: ELIQUIS PO SCH ×2 (09:42→21:46)
[2019-01-01] MEDS: COLACE PO SCH ×2 (09:42→21:47)
[2019-01-01] MEDS: REQUIP PO SCH (09:43)
[2019-01-01] MEDS: FERGON PO SCH ×2 (09:43→21:46)
[2019-01-01] MEDS: BABY ASPIRIN PO SCH (09:43)
[2019-01-01] MEDS: BUMEX PO SCH (09:43)
[2019-01-01] MEDS: ROCEPHIN/NS 1 GM/50 ML 1 GM/50 ML BAG IV SCH (09:44)
[2019-01-01] MEDS: CARDURA PO SCH (09:44)
[2019-01-01] MEDS: ZAROXOLYN PO SCH (09:44)
[2019-01-01] MEDS: SODIUM CHLORIDE FLUSH SYRINGE 10 ML IV SCH ×2 (09:47→21:49)
--- NOTE | 2019-01-01 10:15 | Progress Note ---
Assessment and Plan Optimize HR - convert coreg to lopressor and titrate dosage as tolerated. S/p lexiscan MPI stress test 08/2018 which was negative. Echo done 08/2018 showed EF 55-60%, impaired relaxation, atrial septal aneurysm, mod to severe TR, RVSP 40mmHg. The patient has been seen in conjunction with Dr. Luevano who agrees with the assessment and plan of care. - Patient Problems (1) Hypotension Current Visit: Yes Status: Resolved (2) Atrial fibrillation and flutter Current Visit: Yes Status: Acute (3) Acute on chronic renal failure Current Visit: Yes Status: Acute (4) Anemia Current Visit: Yes Status: Acute (5) CAD (coronary artery disease) Current Visit: Yes Status: Chronic (6) History of coronary artery bypass graft Current Visit: Yes Status: Chronic (7) Stented coronary artery Current Visit: Yes Status: Chronic (8) History of chronic hypertension Current Visit: Yes Status: Chronic (9) Hyperlipidemia Current Visit: Yes Status: Chronic (10) Diabetes Current Visit: Yes Status: Chronic (11) Chronic venous insufficiency Current Visit: Yes Status: Chronic (12) Fever Current Visit: Yes Status: Acute Subjective Date of service: 01/01/19 Principal diagnosis: hypotension; AFib; AFlutter Interval history: pt resting in bed, no current cardiac complaints, states she is feeling better. tele reviewed - pt in AFlutter HR 80s overnight, HR 110s this AM as she is currently exercising with physical therapy team. Objective Last Vital Signs Temp 99.8 F H 01/01/19 07:42 Pulse 116 H 01/01/19 09:44 Resp 16 01/01/19 07:42 BP 157/83 01/01/19 09:44 Pulse Ox 98 01/01/19 07:42 - Physical Examination General: No Apparent Distress HEENT: Positive: PERRL Neck: Positive: neck supple Cardiac: Positive: irregularly irregular, S1/S2 Lungs: Positive: Decreased Breath Sounds Neuro: Positive: Grossly Intact Abdomen: Positive: Unremarkable, Soft, Active Bowel Sounds. Negative: Hepatosplenomegaly Skin: Positive: Clear Musculoskeletal: Normal Range of Motion Extremities: Present: normal. Absent: edema - Labs and Meds CBC 01/01/19 Range/Units 05:27 WBC 7.7 (4.5-11.0) K/mm3 RBC 2.96 L (3.65-5.03) M/mm3 Hgb 8.4 L (10.1-14.3) gm/dl Hct 25.8 L (30.3-42.9) % Plt Count 254 (140-440) K/mm3 Comprehensive Metabolic Panel 01/01/19 Range/Units 05:27 Sodium 133 L (137-145) mmol/L Potassium 4.1 (3.6-5.0) mmol/L Chloride 93.1 L (98-107) mmol/L Carbon Dioxide 28 (22-30) mmol/L BUN 52 H (7-17) mg/dL Creatinine 1.8 H (0.7-1.2) mg/dL Glucose 129 H (65-100) mg/dL Calcium 9.2 (8.4-10.2) mg/dL - Imaging and Cardiology EKG: image reviewed (83 bpm, atrial flutter) Echo: report reviewed (EF55-60%) - Telemetry EKG Rhythm: Atrial Flutter
[2019-01-01] MEDS: MIRALAX 3350 PO PRN (11:55)
[2019-01-01] MEDS: LOPRESSOR PO SCH ×2 (12:06→21:48)
--- NOTE | 2019-01-01 13:31 | Progress Note ---
Assessment and Plan Acute Kidney Injury possibly prerenal worsened in setting of hypotension, diuretics, on CKD Stage 3, r/o obstruction: Hypokalemia: Hyponatremia: - Cr is back to baseline - Review of labs from 2015 to Aug showed SCr level between 1.5-1.8 - Renal US showed 27 mm left renal cortical cyst, no hydronephrosis, mild perinephric fat stranding bilaterally - Hyponatremia, stable - Renally dose meds - Briggs Catheter: No Hypotension: Hx of Hypertension: - Adjust BP medication regimen as needed CAD s/p CABG x 4: History of Proximal Atrial Tachycardia/ Atrial Flutter: Diastolic CHF: - Cardiology consulted, f/u recs - On Plavix - As per Cardiology Diabetes Mellitus Type 2 on insulin: - On SSI and Lantus - As per primary team Anemia: - Likely due to CKD - On oral iron Subjective Date of service: 01/01/19 Principal diagnosis: hypotension; AFib; AFlutter Interval history: comfortable, denies acute issues Objective - Vital Signs Vital signs: Vital Signs - 12hr 01/01/19 01/01/19 01/01/19 01:56 07:42 07:45 Temperature 99.9 F H 99.8 F H Pulse Rate 101 H 112 H 113 H Pulse Rate [ From Monitor] Respiratory 18 16 Rate Blood Pressure 154/90 153/93 Blood Pressure 153/93 [Left] O2 Sat by Pulse 97 98 Oximetry 01/01/19 01/01/19 01/01/19 09:44 10:00 11:00 Temperature Pulse Rate 116 H 106 H Pulse Rate [ 106 H From Monitor] Respiratory Rate Blood Pressure 157/83 Blood Pressure [Left] O2 Sat by Pulse 98 Oximetry 01/01/19 12:06 Temperature Pulse Rate 112 H Pulse Rate [ From Monitor] Respiratory Rate Blood Pressure 146/86 Blood Pressure [Left] O2 Sat by Pulse Oximetry - General Appearance General appearance: well-developed, well-nourished, appears stated age EENT: ATNC, PERRL, mucous membranes moist Neck: no JVD, no carotid bruit Respiratory: Present: Clear to Ascultation. Absent: Rales, Ronchi Cardiology: regular, S1S2 Gastrointestinal: normoactive bowel sounds Integumentary: no rash, warm and dry Neurologic: no focal deficit, no asterixis, alert and oriented x3 Musculoskeletal: other (trace pitting edema in BLE) Psychiatric: mood/affect appropriate, cooperative - Lab 01/01/19 05:27 01/01/19 05:27 Most recent lab results Calcium 9.2 mg/dL (8.4-10.2) 01/01/19 05:27 Phosphorus 3.60 mg/dL (2.5-4.5) 12/29/18 10:30 Magnesium 2.00 mg/dL (1.7-2.3) 12/30/18 05:41 58.1 mg/dL (0.1-20.0) H 12/29/18 21:30 32 mmol/L 12/29/18 21:30 66 mg/dL (5-11.8) H 12/29/18 21:30 Medications & Allergies - Medications Allergies/Adverse Reactions: Allergies nitroglycerin Adverse Reaction (Verified 12/28/18 14:32) Shortness of Breath Home Medications: Home Medications Medication Instructions Recorded Confirmed Last Taken Type Isosorbide Mononitrate [Isosorbide 120 mg PO DAILY 09/12/13 12/28/18 08/12/18 08:00 History Mononitrate ER] Ropinirole HCl 1 tab PO DAILY 09/12/13 12/28/18 08/11/18 21:00 History Carvedilol [Coreg] 25 mg PO DAILY 11/24/15 12/28/18 08/12/18 08:00 History Clonidine HCl [Catapres] 0.3 mg PO TID 11/24/15 12/28/18 08/12/18 08:00 History Clopidogrel Bisulfate [Plavix] 75 mg PO DAILY 11/24/15 12/28/18 08/12/18 08:00 History Oxaprozin 900 mg PO BID 11/24/15 12/28/18 08/12/18 08:00 History Potassium Chloride [Klor-Con 10] 20 meq PO DAILY 11/24/15 12/28/18 08/12/18 08:00 History hydrALAZINE [Apresoline TAB] 100 mg PO TID 11/24/15 12/28/18 08/12/18 08:00 History Doxazosin [Cardura] 4 mg PO DAILY 08/12/18 12/28/18 08/12/18 08:00 History Ferrous Gluconate 324 mg PO BID 08/12/18 12/28/18 08/12/18 08:00 History Bumetanide [Bumex 1 mg tab] 1 mg PO DAILY #30 tab 08/15/18 12/28/18 Unknown Rx Insulin Glargine,Hum.rec.anlog 15 units SQ QHS 30 Days vial 08/15/18 12/28/18 Unknown Rx [Lantus] metOLazone [Zaroxolyn] 2.5 mg PO DAILY 12/28/18 12/28/18 Unknown History Active Medications: Generic Name Dose Route Start Last Admin Trade Name Freq PRN Reason Stop Dose Admin Acetaminophen 650 mg 12/28/18 20:21 01/01/19 04:14 Tylenol PO 650 mg Q4H PRN Administration Pain MILD(1-3)/Fever >100.5/REILLY Apixaban 5 mg 12/29/18 12:00 01/01/19 09:42 Eliquis PO 5 mg Q12HR HECTOR Administration Protocol Aspirin 81 mg 12/29/18 10:00 01/01/19 09:43 Baby Aspirin PO 81 mg QDAY HECTOR Administration Bumetanide 1 mg 12/30/18 10:00 01/01/19 09:43 Bumex PO 1 mg DAILY HECTOR Administration Clonidine HCl 0.1 mg 12/30/18 14:00 01/01/19 07:45 Catapres PO 0.1 mg TID HECTOR Administration Dextrose 50 ml 12/28/18 20:21 D50w (25gm) Syringe IV PRN PRN Hypoglycemia Docusate Sodium 100 mg 12/28/18 22:00 01/01/19 09:42 Colace PO 100 mg BID HECTOR Administration Doxazosin Mesylate 4 mg 12/30/18 10:00 01/01/19 09:44 Cardura PO 4 mg DAILY HECTOR Administration Ferrous Gluconate 324 mg 12/28/18 22:00 01/01/19 09:43 Fergon PO 324 mg BID HECTOR Administration Hydralazine HCl 100 mg 12/30/18 14:00 01/01/19 07:45 Apresoline PO 100 mg TID HECTOR Administration Ceftriaxone Sodium 1 gm in 50 mls @ 100 mls/hr 12/31/18 11:00 01/01/19 09:44 Rocephin/Ns 1 Gm/50 Ml IV 100 mls/hr Q24HR HECTOR Administration Protocol Insulin Glargine 15 units 12/28/18 22:00 12/31/18 22:34 Lantus SUB-Q 15 units QHS HECTOR Administration Insulin Human Lispro 0 unit 12/28/18 22:00 01/01/19 12:00 Humalog SUB-Q 3 unit ACHS HECTOR Administration Protocol Metolazone 2.5 mg 12/30/18 10:00 01/01/19 09:44 Zaroxolyn PO 2.5 mg DAILY HECTOR Administration Metoprolol Tartrate 50 mg 01/01/19 12:00 01/01/19 12:06 Lopressor PO 50 mg BID HECTOR Administration Ondansetron HCl 4 mg 12/28/18 20:21 Zofran IV Q8H PRN Nausea And Vomiting Polyethylene Glycol 17 gm 12/29/18 20:51 01/01/19 11:55 Miralax 3350 PO 17 gm QDAY PRN Administration Constipation Potassium Chloride 20 meq 12/29/18 22:00 01/01/19 09:42 K-Dur PO 20 meq BID HECTOR Administration Ropinirole HCl 1 mg 12/29/18 10:00 01/01/19 09:43 Requip PO 1 mg DAILY HECTOR Administration Sodium Chloride 10 ml 12/28/18 22:00 01/01/19 09:47 Sodium Chloride Flush Syringe 10 Ml IV 10 ml BID HECTOR Administration Sodium Chloride 10 ml 12/28/18 20:21 Sodium Chloride Flush Syringe 10 Ml IV PRN PRN LINE FLUSH
--- NOTE | 2019-01-01 14:03 | Progress Note ---
Assessment and Plan Assessment and plan: --Febrile illness: Afebrile Antipyretics, blood and urine cultures, empiric antibiotics Supportive care --Urinary tract infection; gram-negative Empiric antibiotics, follow culture sensitivities and adjust Supportive care --Acute kidney injury; probably secondary to vasomotor nephropathy Closely monitor renal function, and avoid nephrotoxins, creatinine level trending down --Hypotension; blood pressures reasonable level Closely monitor blood pressures, antihypertensives as needed --History of coronary artery disease status post CABG; stent in 1999 Continue current cardiac medications, cardiology following --Atrial fibrillation; rate controlled on beta blockers, anticoagulation Eliquis Aspirin 81 mg , DC Plavix [increased risk of bleeding ] patient already anemic Cardiology following --Chronic Diastolic congestive heart failure; EF 55-60% Continue current anti-failure medications and supportive care --Type 2 diabetes mellitus; Accu-Chek sliding scale coverage and ADA diet Insulin as needed --Chronic anemia; probably iron deficiency, kidney injury Closely monitor H&H and transfuse as needed --Morbid obesity; BMI 39 Advice weight reduction when medically stable --DVT prophylaxis;on Eliquis Ambulate as tolerated Disposition; possible discharge in 1-2 days with home health History Interval history: Sincerely and examined medical records reviewed Patient feels better, has low-grade fever Complaints of mild weakness Vital signs noted Hospitalist Physical - Constitutional Vitals: Temp Pulse Resp BP Pulse Ox 99.8 F H 112 H 16 146/86 98 01/01/19 07:42 01/01/19 12:06 01/01/19 07:42 01/01/19 12:06 01/01/19 11:00 General appearance: Present: no acute distress, well-nourished, obese - EENT Eyes: Present: PERRL, EOM intact - Neck Neck: Present: supple, normal ROM - Respiratory Respiratory effort: normal Respiratory: bilateral: diminished, negative: rales, rhonchi, wheezing - Cardiovascular Rhythm: regular Heart Sounds: Present: S1 & S2 - Extremities Extremities: no ischemia, No edema - Abdominal General gastrointestinal: soft, non-tender, non-distended, normal bowel sounds - Integumentary Integumentary: Present: clear, warm - Psychiatric Psychiatric: appropriate mood/affect, cooperative - Neurologic Neurologic: CNII-XII intact, moves all extremities Results - Labs CBC & Chem 7: 01/01/19 05:27 01/01/19 05:27 Labs: Laboratory Last Values WBC 7.7 K/mm3 (4.5-11.0) 01/01/19 05:27 RBC 2.96 M/mm3 (3.65-5.03) L 01/01/19 05:27 Hgb 8.4 gm/dl (10.1-14.3) L 01/01/19 05:27 Hct 25.8 % (30.3-42.9) L 01/01/19 05:27 MCV 87 fl (79-97) 01/01/19 05:27 MCH 28 pg (28-32) 01/01/19 05:27 MCHC 32 % (30-34) 01/01/19 05:27 RDW 17.4 % (13.2-15.2) H 01/01/19 05:27 Plt Count 254 K/mm3 (140-440) 01/01/19 05:27 Lymph % (Auto) 12.4 % (13.4-35.0) L 12/31/18 02:03 [place] % (Auto) 13.7 % (0.0-7.3) H 12/31/18 02:03 Eos % (Auto) 0.4 % (0.0-4.3) 12/31/18 02:03 Baso % (Auto) 0.9 % (0.0-1.8) 12/31/18 02:03 Lymph # 0.9 K/mm3 (1.2-5.4) L 12/31/18 02:03 [place] # 0.9 K/mm3 (0.0-0.8) H 12/31/18 02:03 Eos # 0.0 K/mm3 (0.0-0.4) 12/31/18 02:03 Baso # 0.1 K/mm3 (0.0-0.1) 12/31/18 02:03 Seg Neutrophils % 72.6 % (40.0-70.0) H 12/31/18 02:03 Seg Neutrophils # 5.0 K/mm3 (1.8-7.7) 12/31/18 02:03 Sodium 133 mmol/L (137-145) L 01/01/19 05:27 Potassium 4.1 mmol/L (3.6-5.0) 01/01/19 05:27 Chloride 93.1 mmol/L (98-107) L 01/01/19 05:27 Carbon Dioxide 28 mmol/L (22-30) 01/01/19 05:27 16 mmol/L 01/01/19 05:27 BUN 52 mg/dL (7-17) H 01/01/19 05:27 1.8 mg/dL (0.7-1.2) H 01/01/19 05:27 Estimated GFR 33 ml/min 01/01/19 05:27 29 % 01/01/19 05:27 Glucose 129 mg/dL (65-100) H 01/01/19 05:27 POC Glucose 253 (70-105) H 01/01/19 11:43 Lactic Acid 0.70 mmol/L (0.7-2.0) 12/31/18 02:03 Calcium 9.2 mg/dL (8.4-10.2) 01/01/19 05:27 Phosphorus 3.60 mg/dL (2.5-4.5) 12/29/18 10:30 Magnesium 2.00 mg/dL (1.7-2.3) 12/30/18 05:41 Iron 38 ug/dL (37-170) 12/29/18 10:31 TIBC 237 mcg/dL (250-450) L 12/29/18 10:31 191 mg/dl (192-382) L 12/29/18 10:31 288.9 ng/mL (13.0-400.0) 12/29/18 10:31 0.048 ng/mL (0.00-0.029) H 12/28/18 15:10 Triglycerides 84 mg/dL (2-149) 12/28/18 15:10 Cholesterol 104 mg/dL (50-199) 12/28/18 15:10 59 mg/dL (50-130) 12/28/18 15:10 35 mg/dL (40-59) L 12/28/18 15:10 2.97 % 12/28/18 15:10 TSH 0.920 mlU/mL (0.270-4.200) 12/31/18 13:16 Free T4 1.21 ng/dL (0.76-1.46) 12/31/18 13:15 PTH Intact 128.5 pg/mL (15-65) H 12/29/18 10:31 Yellow (Yellow) 12/31/18 12:15 Slightly-cloudy (Clear) 12/31/18 12:15 5.0 (5.0-7.0) 12/31/18 12:15 Ur Specific [place] 1.010 (1.003-1.030) 12/31/18 12:15 30 mg/dl mg/dL (Negative) 12/31/18 12:15 Neg mg/dL (Negative) 12/31/18 12:15 Neg mg/dL (Negative) 12/31/18 12:15 Neg (Negative) 12/31/18 12:15 Neg (Negative) 12/31/18 12:15 Neg (Negative) 12/31/18 12:15 < 2.0 mg/dL (<2.0) 12/31/18 12:15 Ur Leukocyte Esterase Tr (Negative) 12/31/18 12:15 2.0 /HPF (0.0-6.0) 12/31/18 12:15 6.0 /HPF (0.0-6.0) 12/31/18 12:15 U Epithel Cells (Auto) 5.0 /HPF (0-13.0) 12/31/18 12:15 1+ /HPF (Negative) 12/31/18 12:15 Few /HPF 12/31/18 12:15 58.1 mg/dL (0.1-20.0) H 12/29/18 21:30 30.6 mg/dL (0.1-34.0) 12/29/18 21:30 Microalb/Creat Ratio 526.6 ug/mg 12/29/18 21:30 32 mmol/L 12/29/18 21:30 66 mg/dL (5-11.8) H 12/29/18 21:30 Active Medications - Current Medications Current Medications: Generic Name Dose Route Start Last Admin Trade Name Freq PRN Reason Stop Dose Admin Acetaminophen 650 mg 12/28/18 20:21 01/01/19 04:14 Tylenol PO 650 mg Q4H PRN Administration Pain MILD(1-3)/Fever >100.5/REILLY Apixaban 5 mg 12/29/18 12:00 01/01/19 09:42 Eliquis PO 5 mg Q12HR HECTOR Administration Protocol Aspirin 81 mg 12/29/18 10:00 01/01/19 09:43 Baby Aspirin PO 81 mg QDAY HECTOR Administration Bumetanide 1 mg 12/30/18 10:00 01/01/19 09:43 Bumex PO 1 mg DAILY HECTOR Administration Clonidine HCl 0.1 mg 12/30/18 14:00 01/01/19 07:45 Catapres PO 0.1 mg TID HECTOR Administration Dextrose 50 ml 12/28/18 20:21 D50w (25gm) Syringe IV PRN PRN Hypoglycemia Docusate Sodium 100 mg 12/28/18 22:00 01/01/19 09:42 Colace PO 100 mg BID HECTOR Administration Doxazosin Mesylate 4 mg 12/30/18 10:00 01/01/19 09:44 Cardura PO 4 mg DAILY HECTOR Administration Ferrous Gluconate 324 mg 12/28/18 22:00 01/01/19 09:43 Fergon PO 324 mg BID HECTOR Administration Hydralazine HCl 100 mg 12/30/18 14:00 01/01/19 07:45 Apresoline PO 100 mg TID HECTOR Administration Ceftriaxone Sodium 1 gm in 50 mls @ 100 mls/hr 12/31/18 11:00 01/01/19 09:44 Rocephin/Ns 1 Gm/50 Ml IV 100 mls/hr Q24HR HECTOR Administration Protocol Insulin Glargine 15 units 12/28/18 22:00 12/31/18 22:34 Lantus SUB-Q 15 units QHS HECTOR Administration Insulin Human Lispro 0 unit 12/28/18 22:00 01/01/19 12:00 Humalog SUB-Q 3 unit ACHS HECTOR Administration Protocol Metolazone 2.5 mg 12/30/18 10:00 01/01/19 09:44 Zaroxolyn PO 2.5 mg DAILY HECTOR Administration Metoprolol Tartrate 50 mg 01/01/19 12:00 01/01/19 12:06 Lopressor PO 50 mg BID HECTOR Administration Ondansetron HCl 4 mg 12/28/18 20:21 Zofran IV Q8H PRN Nausea And Vomiting Polyethylene Glycol 17 gm 12/29/18 20:51 01/01/19 11:55 Miralax 3350 PO 17 gm QDAY PRN Administration Constipation Potassium Chloride 20 meq 12/29/18 22:00 01/01/19 09:42 K-Dur PO 20 meq BID HECTOR Administration Ropinirole HCl 1 mg 12/29/18 10:00 01/01/19 09:43 Requip PO 1 mg DAILY HECTOR Administration Sodium Chloride 10 ml 12/28/18 22:00 01/01/19 09:47 Sodium Chloride Flush Syringe 10 Ml IV 10 ml BID HECTOR Administration Sodium Chloride 10 ml 12/28/18 20:21 Sodium Chloride Flush Syringe 10 Ml IV PRN PRN LINE FLUSH
--- NOTE | 2019-01-01 14:07 | Progress Note ---
Assessment and Plan Assessment and plan: --Febrile illness: Antipyretics, blood and urine cultures, empiric antibiotics Supportive care --Acute kidney injury; probably secondary to vasomotor nephropathy Closely monitor renal function, and avoid nephrotoxins, creatinine level trending down --Hypotension; mild improvement Closely monitor blood pressures, antihypertensives as needed --History of coronary artery disease status post CABG; stent in 1999 Continue current cardiac medications, cardiology following --Atrial fibrillation; rate controlled on beta blockers, anticoagulation Eliquis Aspirin 81 mg , DC Plavix [increased risk of bleeding ] patient already anemic Cardiology following --Chronic Diastolic congestive heart failure; EF 55-60% Continue current anti-failure medications and supportive care --Type 2 diabetes mellitus; Accu-Chek sliding scale coverage and ADA diet Insulin as needed --Chronic anemia; probably iron deficiency, kidney injury Closely monitor H&H and transfuse as needed --Morbid obesity; BMI 39 Advice weight reduction when medically stable --DVT prophylaxis;on Eliquis Monitor closely and adjust the management as needed Plan of care reviewed with the patient and her nurse. Disposition; possible discharge in 1-2 days stable History Interval history: Sincerely examination medical records reviewed Patient feels better, low-grade fever On empiric antibiotics for febrile illness and possible UTI Patient is alert awake oriented Vital signs noted Hospitalist Physical - Constitutional Vitals: Temp Pulse Resp BP Pulse Ox 99.8 F H 112 H 16 146/86 98 01/01/19 07:42 01/01/19 12:06 01/01/19 07:42 01/01/19 12:06 01/01/19 11:00 General appearance: Present: no acute distress, well-nourished, obese - EENT Eyes: Present: PERRL, EOM intact - Neck Neck: Present: supple, normal ROM - Respiratory Respiratory effort: normal Respiratory: bilateral: diminished, negative: rales, rhonchi, wheezing - Cardiovascular Rhythm: regular Heart Sounds: Present: S1 & S2 - Extremities Extremities: no ischemia, No edema - Abdominal General gastrointestinal: soft, non-tender, non-distended, normal bowel sounds - Integumentary Integumentary: Present: clear, warm - Psychiatric Psychiatric: appropriate mood/affect, cooperative - Neurologic Neurologic: CNII-XII intact, moves all extremities Results - Labs CBC & Chem 7: 01/01/19 05:27 01/01/19 05:27 Labs: Laboratory Last Values WBC 7.7 K/mm3 (4.5-11.0) 01/01/19 05:27 RBC 2.96 M/mm3 (3.65-5.03) L 01/01/19 05:27 Hgb 8.4 gm/dl (10.1-14.3) L 01/01/19 05:27 Hct 25.8 % (30.3-42.9) L 01/01/19 05:27 MCV 87 fl (79-97) 01/01/19 05:27 MCH 28 pg (28-32) 01/01/19 05:27 MCHC 32 % (30-34) 01/01/19 05:27 RDW 17.4 % (13.2-15.2) H 01/01/19 05:27 Plt Count 254 K/mm3 (140-440) 01/01/19 05:27 Lymph % (Auto) 12.4 % (13.4-35.0) L 12/31/18 02:03 [place] % (Auto) 13.7 % (0.0-7.3) H 12/31/18 02:03 Eos % (Auto) 0.4 % (0.0-4.3) 12/31/18 02:03 Baso % (Auto) 0.9 % (0.0-1.8) 12/31/18 02:03 Lymph # 0.9 K/mm3 (1.2-5.4) L 12/31/18 02:03 [place] # 0.9 K/mm3 (0.0-0.8) H 12/31/18 02:03 Eos # 0.0 K/mm3 (0.0-0.4) 12/31/18 02:03 Baso # 0.1 K/mm3 (0.0-0.1) 12/31/18 02:03 Seg Neutrophils % 72.6 % (40.0-70.0) H 12/31/18 02:03 Seg Neutrophils # 5.0 K/mm3 (1.8-7.7) 12/31/18 02:03 Sodium 133 mmol/L (137-145) L 01/01/19 05:27 Potassium 4.1 mmol/L (3.6-5.0) 01/01/19 05:27 Chloride 93.1 mmol/L (98-107) L 01/01/19 05:27 Carbon Dioxide 28 mmol/L (22-30) 01/01/19 05:27 16 mmol/L 01/01/19 05:27 BUN 52 mg/dL (7-17) H 01/01/19 05:27 1.8 mg/dL (0.7-1.2) H 01/01/19 05:27 Estimated GFR 33 ml/min 01/01/19 05:27 29 % 01/01/19 05:27 Glucose 129 mg/dL (65-100) H 01/01/19 05:27 POC Glucose 253 (70-105) H 01/01/19 11:43 Lactic Acid 0.70 mmol/L (0.7-2.0) 12/31/18 02:03 Calcium 9.2 mg/dL (8.4-10.2) 01/01/19 05:27 Phosphorus 3.60 mg/dL (2.5-4.5) 12/29/18 10:30 Magnesium 2.00 mg/dL (1.7-2.3) 12/30/18 05:41 Iron 38 ug/dL (37-170) 12/29/18 10:31 TIBC 237 mcg/dL (250-450) L 12/29/18 10:31 191 mg/dl (192-382) L 12/29/18 10:31 288.9 ng/mL (13.0-400.0) 12/29/18 10:31 0.048 ng/mL (0.00-0.029) H 12/28/18 15:10 Triglycerides 84 mg/dL (2-149) 12/28/18 15:10 Cholesterol 104 mg/dL (50-199) 12/28/18 15:10 59 mg/dL (50-130) 12/28/18 15:10 35 mg/dL (40-59) L 12/28/18 15:10 2.97 % 12/28/18 15:10 TSH 0.920 mlU/mL (0.270-4.200) 12/31/18 13:16 Free T4 1.21 ng/dL (0.76-1.46) 12/31/18 13:15 PTH Intact 128.5 pg/mL (15-65) H 12/29/18 10:31 Yellow (Yellow) 12/31/18 12:15 Slightly-cloudy (Clear) 12/31/18 12:15 5.0 (5.0-7.0) 12/31/18 12:15 Ur Specific [place] 1.010 (1.003-1.030) 12/31/18 12:15 30 mg/dl mg/dL (Negative) 12/31/18 12:15 Neg mg/dL (Negative) 12/31/18 12:15 Neg mg/dL (Negative) 12/31/18 12:15 Neg (Negative) 12/31/18 12:15 Neg (Negative) 12/31/18 12:15 Neg (Negative) 12/31/18 12:15 < 2.0 mg/dL (<2.0) 12/31/18 12:15 Ur Leukocyte Esterase Tr (Negative) 12/31/18 12:15 2.0 /HPF (0.0-6.0) 12/31/18 12:15 6.0 /HPF (0.0-6.0) 12/31/18 12:15 U Epithel Cells (Auto) 5.0 /HPF (0-13.0) 12/31/18 12:15 1+ /HPF (Negative) 12/31/18 12:15 Few /HPF 12/31/18 12:15 58.1 mg/dL (0.1-20.0) H 12/29/18 21:30 30.6 mg/dL (0.1-34.0) 12/29/18 21:30 Microalb/Creat Ratio 526.6 ug/mg 12/29/18 21:30 32 mmol/L 12/29/18 21:30 66 mg/dL (5-11.8) H 12/29/18 21:30 Active Medications - Current Medications Current Medications: Generic Name Dose Route Start Last Admin Trade Name Freq PRN Reason Stop Dose Admin Acetaminophen 650 mg 12/28/18 20:21 01/01/19 04:14 Tylenol PO 650 mg Q4H PRN Administration Pain MILD(1-3)/Fever >100.5/REILLY Apixaban 5 mg 12/29/18 12:00 01/01/19 09:42 Eliquis PO 5 mg Q12HR HECTOR Administration Protocol Aspirin 81 mg 12/29/18 10:00 01/01/19 09:43 Baby Aspirin PO 81 mg QDAY HECTOR Administration Bumetanide 1 mg 12/30/18 10:00 01/01/19 09:43 Bumex PO 1 mg DAILY HECTOR Administration Clonidine HCl 0.1 mg 12/30/18 14:00 01/01/19 07:45 Catapres PO 0.1 mg TID HECTOR Administration Dextrose 50 ml 12/28/18 20:21 D50w (25gm) Syringe IV PRN PRN Hypoglycemia Docusate Sodium 100 mg 12/28/18 22:00 01/01/19 09:42 Colace PO 100 mg BID HECTOR Administration Doxazosin Mesylate 4 mg 12/30/18 10:00 01/01/19 09:44 Cardura PO 4 mg DAILY HECTOR Administration Ferrous Gluconate 324 mg 12/28/18 22:00 01/01/19 09:43 Fergon PO 324 mg BID HECTOR Administration Hydralazine HCl 100 mg 12/30/18 14:00 01/01/19 07:45 Apresoline PO 100 mg TID HECTOR Administration Ceftriaxone Sodium 1 gm in 50 mls @ 100 mls/hr 12/31/18 11:00 01/01/19 09:44 Rocephin/Ns 1 Gm/50 Ml IV 100 mls/hr Q24HR HECTOR Administration Protocol Insulin Glargine 15 units 12/28/18 22:00 12/31/18 22:34 Lantus SUB-Q 15 units QHS HECTOR Administration Insulin Human Lispro 0 unit 12/28/18 22:00 01/01/19 12:00 Humalog SUB-Q 3 unit ACHS HECTOR Administration Protocol Metolazone 2.5 mg 12/30/18 10:00 01/01/19 09:44 Zaroxolyn PO 2.5 mg DAILY HECTOR Administration Metoprolol Tartrate 50 mg 01/01/19 12:00 01/01/19 12:06 Lopressor PO 50 mg BID HECTOR Administration Ondansetron HCl 4 mg 12/28/18 20:21 Zofran IV Q8H PRN Nausea And Vomiting Polyethylene Glycol 17 gm 12/29/18 20:51 01/01/19 11:55 Miralax 3350 PO 17 gm QDAY PRN Administration Constipation Potassium Chloride 20 meq 06/22/19 22:00 01/01/19 09:42 K-Dur PO 20 meq BID HECTOR Administration Ropinirole HCl 1 mg 12/29/18 10:00 01/01/19 09:43 Requip PO 1 mg DAILY HECTOR Administration Sodium Chloride 10 ml 12/28/18 22:00 01/01/19 09:47 Sodium Chloride Flush Syringe 10 Ml IV 10 ml BID HECTOR Administration Sodium Chloride 10 ml 12/28/18 20:21 Sodium Chloride Flush Syringe 10 Ml IV PRN PRN LINE FLUSH
[2019-01-01] MEDS: LANTUS SUB-Q SCH (21:48)
[2019-01-02] MEDS: TYLENOL PO PRN (03:07)
[2019-01-02 06:29] LABS: Calcium 9.7 mg/dL (8.4-10.2)
[2019-01-02] MEDS: CATAPRES PO SCH ×2 (07:30→14:21)
[2019-01-02] MEDS: HumaLOG SUB-Q SCH ×3 (07:30→16:44)
[2019-01-02] MEDS: APRESOLINE PO SCH ×2 (07:30→14:20)
--- NOTE | 2019-01-02 08:25 | Progress Note ---
Assessment and Plan Assessment and plan: --Acute flareup of gout right ankle; Indomethacin, steroids, x-ray right ankle Elevate the limb, patient takes oxaprozin for arthritis will resume home med --Febrile illness/persistent fevers Patient is on Rocephin for UTI, consult ID Antipyretics, blood and urine cultures, empiric antibiotics --Sepsis secondary to urinary tract infection/gram-negative rods Continue empiric antibiotics, follow culture sensitivities and adjust Supportive care --Acute on chronic kidney diseaseIII : probably secondary to vasomotor nephropathy monitor renal function,avoid nephrotoxins, nephrology following --Hypotension; blood pressures reasonable level Closely monitor blood pressures, antihypertensives as needed --History of coronary artery disease status post CABG; stent in 1999 Continue current cardiac medications, cardiology following --Atrial fibrillation; rate controlled on beta blockers, anticoagulation Eliquis Aspirin 81 mg , DC Plavix [increased risk of bleeding ] patient already anemic Cardiology following --Chronic Diastolic congestive heart failure; EF 55-60% Continue current anti-failure medications and supportive care --Type 2 diabetes mellitus; Accu-Chek sliding scale coverage and ADA diet Insulin as needed --Chronic anemia; probably iron deficiency, kidney injury Closely monitor H&H and transfuse as needed --Morbid obesity; BMI 39 Advice weight reduction when medically stable --DVT prophylaxis;on Eliquis Ambulate as tolerated Disposition; follow urine culture sensitivities History Interval history: Patient seen and examined medical records reviewed Patient feels better however has persistent low-grade fevers and Rocephin for UTI Patient complains of right ankle pain, reports gout flareup Alert awake oriented Vital signs noted Hospitalist Physical - Constitutional Vitals: Temp Pulse Resp BP Pulse Ox 100.1 F H 111 H 19 181/100 99 01/02/19 07:27 01/02/19 07:30 01/02/19 07:27 01/02/19 07:30 01/02/19 07:27 General appearance: Present: no acute distress, well-nourished, obese - EENT Eyes: Present: PERRL, EOM intact - Neck Neck: Present: supple, normal ROM - Respiratory Respiratory effort: normal Respiratory: negative: rales, rhonchi, wheezing - Cardiovascular Rhythm: regular Heart Sounds: Present: S1 & S2 - Extremities Extremities: no ischemia, No edema, abnormal ( right ankle swelling and tenderness) - Abdominal General gastrointestinal: soft, non-tender, non-distended, normal bowel sounds - Integumentary Integumentary: Present: clear, warm - Psychiatric Psychiatric: appropriate mood/affect, cooperative - Neurologic Neurologic: CNII-XII intact, moves all extremities Results - Labs CBC & Chem 7: 01/02/19 09:00 01/02/19 05:33 Labs: Laboratory Last Values WBC 7.7 K/mm3 (4.5-11.0) 01/01/19 05:27 RBC 2.96 M/mm3 (3.65-5.03) L 01/01/19 05:27 Hgb 8.4 gm/dl (10.1-14.3) L 01/01/19 05:27 Hct 25.8 % (30.3-42.9) L 01/01/19 05:27 MCV 87 fl (79-97) 01/01/19 05:27 MCH 28 pg (28-32) 01/01/19 05:27 MCHC 32 % (30-34) 01/01/19 05:27 RDW 17.4 % (13.2-15.2) H 01/01/19 05:27 Plt Count 254 K/mm3 (140-440) 01/01/19 05:27 Lymph % (Auto) 12.4 % (13.4-35.0) L 12/31/18 02:03 [place] % (Auto) 13.7 % (0.0-7.3) H 12/31/18 02:03 Eos % (Auto) 0.4 % (0.0-4.3) 12/31/18 02:03 Baso % (Auto) 0.9 % (0.0-1.8) 12/31/18 02:03 Lymph # 0.9 K/mm3 (1.2-5.4) L 12/31/18 02:03 [place] # 0.9 K/mm3 (0.0-0.8) H 12/31/18 02:03 Eos # 0.0 K/mm3 (0.0-0.4) 12/31/18 02:03 Baso # 0.1 K/mm3 (0.0-0.1) 12/31/18 02:03 Seg Neutrophils % 72.6 % (40.0-70.0) H 12/31/18 02:03 Seg Neutrophils # 5.0 K/mm3 (1.8-7.7) 12/31/18 02:03 Sodium 133 mmol/L (137-145) L 01/02/19 05:33 Potassium 4.2 mmol/L (3.6-5.0) 01/02/19 05:33 Chloride 93.2 mmol/L (98-107) L 01/02/19 05:33 Carbon Dioxide 28 mmol/L (22-30) 01/02/19 05:33 16 mmol/L 01/02/19 05:33 BUN 50 mg/dL (7-17) H 01/02/19 05:33 1.8 mg/dL (0.7-1.2) H 01/02/19 05:33 Estimated GFR 33 ml/min 01/02/19 05:33 28 % 01/02/19 05:33 Glucose 164 mg/dL (65-100) H 01/02/19 05:33 POC Glucose 166 (70-105) H 01/02/19 07:31 Lactic Acid 0.70 mmol/L (0.7-2.0) 12/31/18 02:03 Calcium 9.7 mg/dL (8.4-10.2) 01/02/19 05:33 Phosphorus 3.60 mg/dL (2.5-4.5) 12/29/18 10:30 Magnesium 2.00 mg/dL (1.7-2.3) 12/30/18 05:41 Iron 38 ug/dL (37-170) 12/29/18 10:31 TIBC 237 mcg/dL (250-450) L 12/29/18 10:31 191 mg/dl (192-382) L 12/29/18 10:31 288.9 ng/mL (13.0-400.0) 12/29/18 10:31 0.048 ng/mL (0.00-0.029) H 12/28/18 15:10 Triglycerides 84 mg/dL (2-149) 12/28/18 15:10 Cholesterol 104 mg/dL (50-199) 12/28/18 15:10 59 mg/dL (50-130) 12/28/18 15:10 35 mg/dL (40-59) L 12/28/18 15:10 2.97 % 12/28/18 15:10 TSH 0.920 mlU/mL (0.270-4.200) 12/31/18 13:16 Free T4 1.21 ng/dL (0.76-1.46) 12/31/18 13:15 PTH Intact 128.5 pg/mL (15-65) H 12/29/18 10:31 Yellow (Yellow) 12/31/18 12:15 Slightly-cloudy (Clear) 12/31/18 12:15 5.0 (5.0-7.0) 12/31/18 12:15 Ur Specific [place] 1.010 (1.003-1.030) 12/31/18 12:15 30 mg/dl mg/dL (Negative) 12/31/18 12:15 Neg mg/dL (Negative) 12/31/18 12:15 Neg mg/dL (Negative) 12/31/18 12:15 Neg (Negative) 12/31/18 12:15 Neg (Negative) 12/31/18 12:15 Neg (Negative) 12/31/18 12:15 < 2.0 mg/dL (<2.0) 12/31/18 12:15 Ur Leukocyte Esterase Tr (Negative) 12/31/18 12:15 2.0 /HPF (0.0-6.0) 12/31/18 12:15 6.0 /HPF (0.0-6.0) 12/31/18 12:15 U Epithel Cells (Auto) 5.0 /HPF (0-13.0) 12/31/18 12:15 1+ /HPF (Negative) 12/31/18 12:15 Few /HPF 12/31/18 12:15 58.1 mg/dL (0.1-20.0) H 12/29/18 21:30 30.6 mg/dL (0.1-34.0) 12/29/18 21:30 Microalb/Creat Ratio 526.6 ug/mg 12/29/18 21:30 32 mmol/L 12/29/18 21:30 66 mg/dL (5-11.8) H 12/29/18 21:30 Active Medications - Current Medications Current Medications: Generic Name Dose Route Start Last Admin Trade Name Freq PRN Reason Stop Dose Admin Acetaminophen 650 mg 12/28/18 20:21 01/02/19 03:07 Tylenol PO 650 mg Q4H PRN Administration Pain MILD(1-3)/Fever >100.5/REILLY Apixaban 5 mg 12/29/18 12:00 01/01/19 21:46 Eliquis PO 5 mg Q12HR HECTOR Administration Protocol Aspirin 81 mg 12/29/18 10:00 01/01/19 09:43 Baby Aspirin PO 81 mg QDAY HECTOR Administration Bumetanide 1 mg 12/30/18 10:00 01/01/19 09:43 Bumex PO 1 mg DAILY HECTOR Administration Clonidine HCl 0.1 mg 12/30/18 14:00 01/02/19 07:30 Catapres PO 0.1 mg TID HECTOR Administration Dextrose 50 ml 12/28/18 20:21 D50w (25gm) Syringe IV PRN PRN Hypoglycemia Docusate Sodium 100 mg 12/28/18 22:00 01/01/19 21:47 Colace PO 100 mg BID HECTOR Administration Doxazosin Mesylate 4 mg 12/30/18 10:00 01/01/19 09:44 Cardura PO 4 mg DAILY HECTOR Administration Ferrous Gluconate 324 mg 12/28/18 22:00 01/01/19 21:46 Fergon PO 324 mg BID HECTOR Administration Hydralazine HCl 100 mg 12/30/18 14:00 01/02/19 07:30 Apresoline PO 100 mg TID HECTOR Administration Ceftriaxone Sodium 1 gm in 50 mls @ 100 mls/hr 12/31/18 11:00 01/01/19 09:44 Rocephin/Ns 1 Gm/50 Ml IV 100 mls/hr Q24HR HECTOR Administration Protocol Insulin Glargine 15 units 12/28/18 22:00 01/01/19 21:48 Lantus SUB-Q 15 units QHS HECTOR Administration Insulin Human Lispro 0 unit 12/28/18 22:00 01/02/19 07:30 Humalog SUB-Q 1 unit ACHS HECTOR Administration Protocol Metolazone 2.5 mg 12/30/18 10:00 01/01/19 09:44 Zaroxolyn PO 2.5 mg DAILY HECTOR Administration Metoprolol Tartrate 50 mg 01/01/19 12:00 01/01/19 21:48 Lopressor PO 50 mg BID HECTOR Administration Ondansetron HCl 4 mg 12/28/18 20:21 Zofran IV Q8H PRN Nausea And Vomiting Polyethylene Glycol 17 gm 12/29/18 20:51 01/01/19 11:55 Miralax 3350 PO 17 gm QDAY PRN Administration Constipation Potassium Chloride 20 meq 12/29/18 22:00 01/01/19 21:47 K-Dur PO 20 meq BID HECTOR Administration Ropinirole HCl 1 mg 12/29/18 10:00 01/01/19 09:43 Requip PO 1 mg DAILY HECTOR Administration Sodium Chloride 10 ml 12/28/18 22:00 01/01/19 21:49 Sodium Chloride Flush Syringe 10 Ml IV 10 ml BID HECTOR Administration Sodium Chloride 10 ml 12/28/18 20:21 Sodium Chloride Flush Syringe 10 Ml IV PRN PRN LINE FLUSH
[2019-01-02 09:33] LABS: Hematocrit 26.1 % (30.3-42.9); Hemoglobin 8.5 gm/dl (10.1-14.3); Mean Corpuscular HGB Conc 33 % (30-34); Mean Corpuscular Volume 87 fl (79-97); Platelet Count 262 K/mm3 (140-440); Red Blood Count 3.01 M/mm3 (3.65-5.03); Red Cell Distribution Width 17.5 % (13.2-15.2)
[2019-01-02] MEDS: LOPRESSOR PO SCH ×2 (09:46→14:20)
[2019-01-02] MEDS: BABY ASPIRIN PO SCH (09:47)
[2019-01-02] MEDS: COLACE PO SCH ×2 (09:47→23:36)
[2019-01-02] MEDS: ELIQUIS PO SCH ×2 (09:51→23:36)
[2019-01-02] MEDS: BUMEX PO SCH (09:51)
[2019-01-02] MEDS: K-DUR PO SCH ×2 (09:51→23:35)
[2019-01-02] MEDS: REQUIP PO SCH (09:52)
[2019-01-02] MEDS: ROCEPHIN/NS 1 GM/50 ML 1 GM/50 ML BAG IV SCH (09:52)
[2019-01-02] MEDS: SODIUM CHLORIDE FLUSH SYRINGE 10 ML IV SCH (09:52)
[2019-01-02] MEDS: FERGON PO SCH (09:52)
[2019-01-02] MEDS: ZAROXOLYN PO SCH (09:52)
[2019-01-02] MEDS: CARDURA PO SCH (10:01)
--- NOTE | 2019-01-02 10:30 | Progress Note ---
Assessment and Plan Optimize HR and BPs - increase lopressor. The patient has been seen in conjunction with Dr. Mirela Bocanegra who agrees with the assessment and plan of care. - Patient Problems (1) Hypotension Current Visit: Yes Status: Resolved (2) Atrial fibrillation and flutter Current Visit: Yes Status: Acute (3) Acute on chronic renal failure Current Visit: Yes Status: Acute (4) Anemia Current Visit: Yes Status: Acute (5) CAD (coronary artery disease) Current Visit: Yes Status: Chronic (6) History of coronary artery bypass graft Current Visit: Yes Status: Chronic (7) Stented coronary artery Current Visit: Yes Status: Chronic (8) History of chronic hypertension Current Visit: Yes Status: Chronic (9) Hyperlipidemia Current Visit: Yes Status: Chronic (10) Diabetes Current Visit: Yes Status: Chronic (11) Chronic venous insufficiency Current Visit: Yes Status: Chronic (12) Fever Current Visit: Yes Status: Acute Subjective Date of service: 01/02/19 Principal diagnosis: hypotension; AFib; AFlutter Interval history: pt resting in bed, no current cardiac complaints, states she is feeling better. tele reviewed - pt in AFib/AFlutter HR 80s - 90s. Objective Last Vital Signs Temp 100.1 F H 01/02/19 07:27 Pulse 99 H 01/02/19 10:00 Resp 19 01/02/19 07:27 BP 160/79 01/02/19 09:46 Pulse Ox 99 01/02/19 07:27 - Physical Examination General: No Apparent Distress HEENT: Positive: PERRL Neck: Positive: neck supple Cardiac: Positive: irregularly irregular, S1/S2 Lungs: Positive: Decreased Breath Sounds Neuro: Positive: Grossly Intact Abdomen: Positive: Unremarkable, Soft, Active Bowel Sounds. Negative: Hepatosplenomegaly Skin: Positive: Clear Musculoskeletal: Normal Range of Motion Extremities: Present: normal. Absent: edema - Labs and Meds CBC 01/02/19 Range/Units 09:00 WBC 8.6 (4.5-11.0) K/mm3 RBC 3.01 L (3.65-5.03) M/mm3 Hgb 8.5 L (10.1-14.3) gm/dl Hct 26.1 L (30.3-42.9) % Plt Count 262 (140-440) K/mm3 Comprehensive Metabolic Panel 06/26/19 Range/Units 05:33 Sodium 133 L (137-145) mmol/L Potassium 4.2 (3.6-5.0) mmol/L Chloride 93.2 L (98-107) mmol/L Carbon Dioxide 28 (22-30) mmol/L BUN 50 H (7-17) mg/dL Creatinine 1.8 H (0.7-1.2) mg/dL Glucose 164 H (65-100) mg/dL Calcium 9.7 (8.4-10.2) mg/dL - Imaging and Cardiology EKG: image reviewed (83 bpm, atrial flutter) Echo: report reviewed (EF55-60%) - Telemetry EKG Rhythm: Atrial Fibrillation
[2019-01-02] MEDS ORDERED: DELTASONE PO ONE (11:00)
[2019-01-02] MEDS ORDERED: INDOCIN PO ONE (11:00)
--- NOTE | 2019-01-02 11:16 | Consultation ---
History of Present Illness - Reason for Consult Consult date: 01/02/19 fever Requesting physician: ALYX ARZATE - History of Present Illness 73y/o female with history of gout, diabetes, CKD, HTN, CHF, CAD/STEMI s/p CABG s/p stentx4 (2008), atrial fib admitted on 12/28/2018 due to generalized malaise and dizziness after she took her BP meds. She checked her blood pressure and it was in 80'/30's. Denies any recent fever, chills, N/V/D or cough. In the ED, temp 97.9, HR 108, R16, BP 99, BP 91/61. WBC 5.5. Hg 8.6.. Plat 296. Creat 2.5. UA negative on 12/29/2018. By 12/30/2018 she started spiking fever at 100.2-102. UA negative on 12/29/2018. Blood cultures 12/31/2018 no growth. Urine culture 12/31/2018 E coli 10-100K. CXR negative. Review of Systems: General: + fever, no chills, no malaise, +dizziness Cutaneous: no rash, pruritus Head: no headaches or injury Eyes: no changes in vision, eye pain, double vision Ears: no ear pain, ear discharge, ringing or hearing loss Nose: no nose bleeding, stuffiness Mouth & throat: no bleeding gums, no horseness, no dental problems, or swollen glands Neck: no pain, node enlargement/lumps, tyroid enlargement or tenderness Respiratory: no cough, wheezing, sputum, hemoptysis, pleuritic chest pain Cardiovascular: no chest pain, leg edema, cyanosis, PETIT, orthopnea Musculoskeletal: +right ankle edema and tenderness Gastrointestinal: no nausea, vomiting, no hematemesis, diarrhea, constipation, melena, bright red blood in stools, fecal incontinence, jaundice Genitourinary/Reproductive: no frequent urination, dysuria, hematuria, incontinence Neurogical: no seizures, no headaches, no weakness, no paresthesias, no loss of speech or vision; no memory loss, no vertigo, no tremors, no numbness Psychiatric: stable mood; no excessive anxiety, sadness or moodiness Past History Past Medical History: acute ID (NSTEMI), anemia (chronic), CAD (S/P stent 4 (2008)), diabetes, heart failure (diastolic CHF with EF 55-60%), hypertension, hyperlipidemia, other (CKD3, paroxysmal atrial tachycardia, venous insufficiency, morbid obesity,) Past Surgical History: CABG, hysterectomy, Other (s/p stent X4) Social history: Lives alone Family history: no significant family history Medications and Allergies Allergies Allergy/AdvReac Type Severity Reaction Status Date / Time nitroglycerin AdvReac Shortness Verified 12/28/18 14:32 of Breath Home Medications Medication Instructions Recorded Confirmed Last Taken Type Isosorbide Mononitrate [Isosorbide 120 mg PO DAILY 09/12/13 12/28/18 08/12/18 08:00 History Mononitrate ER] Ropinirole HCl 1 tab PO DAILY 09/12/13 12/28/18 08/11/18 21:00 History Carvedilol [Coreg] 25 mg PO DAILY 11/24/15 12/28/18 08/12/18 08:00 History Clonidine HCl [Catapres] 0.3 mg PO TID 11/24/15 12/28/18 08/12/18 08:00 History Clopidogrel Bisulfate [Plavix] 75 mg PO DAILY 11/24/15 12/28/18 08/12/18 08:00 History Oxaprozin 900 mg PO BID 11/24/15 12/28/18 08/12/18 08:00 History Potassium Chloride [Klor-Con 10] 20 meq PO DAILY 11/24/15 12/28/18 08/12/18 08:00 History hydrALAZINE [Apresoline TAB] 100 mg PO TID 11/24/15 12/28/18 08/12/18 08:00 History Doxazosin [Cardura] 4 mg PO DAILY 08/12/18 12/28/18 08/12/18 08:00 History Ferrous Gluconate 324 mg PO BID 08/12/18 12/28/18 08/12/18 08:00 History Bumetanide [Bumex 1 mg tab] 1 mg PO DAILY #30 tab 08/15/18 12/28/18 Unknown Rx Insulin Glargine,Hum.rec.anlog 15 units SQ QHS 30 Days vial 08/15/18 12/28/18 Unknown Rx [Lantus] metOLazone [Zaroxolyn] 2.5 mg PO DAILY 12/28/18 12/28/18 Unknown History Active Meds: Active Medications Acetaminophen (Tylenol) 650 mg PO Q4H PRN PRN Reason: Pain MILD(1-3)/Fever >100.5/REILLY Last Admin: 01/02/19 03:07 Dose: 650 mg Documented by: Apixaban (Eliquis) 5 mg PO Q12HR [facility]; Protocol Last Admin: 01/02/19 09:51 Dose: 5 mg Documented by: Aspirin (Baby Aspirin) 81 mg PO QDAY [facility] Last Admin: 01/02/19 09:47 Dose: 81 mg Documented by: Bumetanide (Bumex) 1 mg PO DAILY [facility] Last Admin: 01/02/19 09:51 Dose: 1 mg Documented by: Clonidine HCl (Catapres) 0.1 mg PO TID [facility] Last Admin: 01/02/19 07:30 Dose: 0.1 mg Documented by: Dextrose (D50w (25gm) Syringe) 50 ml IV PRN PRN PRN Reason: Hypoglycemia Docusate Sodium (Colace) 100 mg PO BID [facility] Last Admin: 01/02/19 09:47 Dose: 100 mg Documented by: Doxazosin Mesylate (Cardura) 4 mg PO DAILY [facility] Last Admin: 01/02/19 10:01 Dose: 4 mg Documented by: Ferrous Gluconate (Fergon) 324 mg PO BID [facility] Last Admin: 01/02/19 09:52 Dose: 324 mg Documented by: Hydralazine HCl (Apresoline) 100 mg PO TID [facility] Last Admin: 01/02/19 07:30 Dose: 100 mg Documented by: Ceftriaxone Sodium (Rocephin/Ns 1 Gm/50 Ml) 1 gm in 50 mls @ 100 mls/hr IV Q24HR [facility]; Protocol Last Admin: 01/02/19 09:52 Dose: 100 mls/hr Documented by: Insulin Glargine (Lantus) 15 units SUB-Q QHS [facility] Last Admin: 01/01/19 21:48 Dose: 15 units Documented by: Insulin Human Lispro (Humalog) 0 unit SUB-Q ACHS [facility]; Protocol Last Admin: 01/02/19 07:30 Dose: 1 unit Documented by: Metolazone (Zaroxolyn) 2.5 mg PO DAILY [facility] Last Admin: 01/02/19 09:52 Dose: 2.5 mg Documented by: Metoprolol Tartrate (Lopressor) 50 mg PO TID [facility] Ondansetron HCl (Zofran) 4 mg IV Q8H PRN PRN Reason: Nausea And Vomiting Polyethylene Glycol (Miralax 3350) 17 gm PO QDAY PRN PRN Reason: Constipation Last Admin: 01/01/19 11:55 Dose: 17 gm Documented by: Potassium Chloride (K-Dur) 20 meq PO BID [facility] Last Admin: 01/02/19 09:51 Dose: 20 meq Documented by: Prednisone (Deltasone) 20 mg PO QDAY [facility] Ropinirole HCl (Requip) 1 mg PO DAILY [facility] Last Admin: 01/02/19 09:52 Dose: 1 mg Documented by: Sodium Chloride (Sodium Chloride Flush Syringe 10 Ml) 10 ml IV BID [facility] Last Admin: 01/02/19 09:52 Dose: 10 ml Documented by: Sodium Chloride (Sodium Chloride Flush Syringe 10 Ml) 10 ml IV PRN PRN PRN Reason: LINE FLUSH Physical Examination - Physical Exam Narrative exam: General appearance: Alert in NAD Eyes: anicteric sclerae, moist conjunctivae; no lid-lag; PERRLA HENT: Atraumatic; oropharynx clear with moist mucous membranes and no mucosal ul cerations/no oral thrush; normal hard and soft palate. Normal external ears. Neck: Trachea midline; supple, no thyromegaly or lymphadenopathy Lungs: CTA, with normal respiratory effort and no intercostal retractions CV: RRR no murmur Abdomen: Soft, non-tender; no masses or hepatosplenomegaly Extremities: +right ankle is tender, edematous and hot. Skin: Normal temperature, turgor and texture; no rash, ulcers or subcutaneous nodules Psych: Appropriate affect, alert and oriented to person, place and time. Neuro: alert and oriented x 3. Moving all extermities - Constitutional Vitals: Vital Signs Temp Pulse Resp BP Pulse Ox 100.1 F H 99 H 19 160/79 99 01/02/19 07:27 01/02/19 10:00 01/02/19 07:27 01/02/19 09:46 01/02/19 07:27 Temperature -Last 24 Hours Temperature 100.1 F Temperature 100 F Temperature 100.5 F Temperature 101.1 F Temperature 99.2 F Temperature 99.5 F Temperature 100.1 F Results - Labs CBC & Chem 7: 01/02/19 09:00 01/02/19 05:33 Labs: Abnormal lab results 01/01/19 01/01/19 01/01/19 Range/Units 11:43 16:09 21:04 RBC (3.65-5.03) M/mm3 Hgb (10.1-14.3) gm/dl Hct (30.3-42.9) % RDW (13.2-15.2) % Sodium (137-145) mmol/L Chloride (98-107) mmol/L BUN (7-17) mg/dL Creatinine (0.7-1.2) mg/dL Glucose (65-100) mg/dL POC Glucose 253 H 253 H 313 H (70-105) 01/02/19 01/02/19 01/02/19 Range/Units 05:33 07:31 09:00 RBC 3.01 L (3.65-5.03) M/mm3 Hgb 8.5 L (10.1-14.3) gm/dl Hct 26.1 L (30.3-42.9) % RDW 17.5 H (13.2-15.2) % Sodium 133 L (137-145) mmol/L Chloride 93.2 L (98-107) mmol/L BUN 50 H (7-17) mg/dL Creatinine 1.8 H (0.7-1.2) mg/dL Glucose 164 H (65-100) mg/dL POC Glucose 166 H (70-105) Assessment and Plan Cultures: Blood cultures 12/31/2018 no growth Urine culture 12/31/2018 10-100K E coli Assessment: 73y/o female with history of gout, diabetes, CKD, HTN, CHF, CAD/STEMI s/p CABG s/p stentx4 (2008), atrial fib admitted on 12/28/2018 due to generalized malaise and dizziness after she took her BP meds, she was admitted with CHF exacerbation and JOSE on CKD from hypotension, by 12/30/2018 she started spiking fever at 100.2-102: 1) Fever: not present on admission, associated with right ankle acute edema and tenderness typical location and pattern of her gouty attacks, likely acute gouty attack triggered by diuretics. UA negative on 12/29/2018. UA negative on 12/29/2018. Blood cultures 12/31/2018 no growth 2) Asymptomatic bacteriuria without pyuria: likely urine contamination. Urine culture 12/31/2018 10-100K E coli 3) Acute on CKD Recommendations: - follow-up blood cultures - treat gout - right ankle XR - monitor fever - stop ceftriaxone Will follow. Jennifer Jimenez MD Infectious Diseases [employer] [facility] M [phone] O [phone]
--- NOTE | 2019-01-02 13:55 | XRay Report ---
RIGHT ANKLE, 3 views: History: Swelling, pain, gout. There is moderate to severe diffuse soft tissue swelling. The bony structures are mildly demineralized. There are mild osteoarthritic changes at the ankle joint. No evidence for bony erosions, fracture or bone lesion. Large plantar spur. IMPRESSION: Diffuse soft tissue swelling. Mild osteopenia. Mild degenerative changes. Plantar spur.
--- NOTE | 2019-01-02 15:54 | Progress Note ---
Assessment and Plan Acute Kidney Injury possibly prerenal worsened in setting of hypotension, diuretics, on CKD Stage 3, r/o obstruction: Hypokalemia: Hyponatremia: - Renal function reviewed, SCr level was 1.8 today, yesterday's SCr level was 1.8 - Review of labs from 2015 to Aug showed SCr level between 1.5-1.8 - On Bumex 1 mg daily and metolazone 2.5 mg po daily - Renal US showed 27 mm left renal cortical cyst, no hydronephrosis, mild perinephric fat stranding bilaterally - Replete potassium as needed - Hyponatremia stable - Pt started on prednisone for suspected right foot/toe gout pain - Renally dose meds - Briggs Catheter: No - Renal plan d/w Dr Walter Hypotension: Hx of Hypertension: - Adjust BP medication regimen as needed CAD s/p CABG x 4: History of Proximal Atrial Tachycardia/ Atrial Flutter: Diastolic CHF: - On Bumex and metolazone - On Plavix - As per Cardiology Diabetes Mellitus Type 2 on insulin: - On SSI and Lantus - As per primary team Anemia: - Likely due to CKD - On oral iron Subjective Date of service: 01/02/19 Principal diagnosis: hypotension; AFib; AFlutter Interval history: Pt seen in bed, pt c/o right foot gout pain, denies shortness of breath, states tolerating diet without nausea or vomiting. Family at bedside Objective - Vital Signs Vital signs: Vital Signs - 12hr 01/02/19 01/02/19 01/02/19 06:11 07:27 07:30 Temperature 100 F H 100.1 F H Pulse Rate 110 H 111 H Pulse Rate [ From Monitor] Respiratory 19 Rate Blood Pressure 181/100 181/100 O2 Sat by Pulse 99 Oximetry 01/02/19 01/02/19 01/02/19 09:46 10:00 11:00 Temperature Pulse Rate 89 99 H Pulse Rate [ 99 H From Monitor] Respiratory Rate Blood Pressure 160/79 O2 Sat by Pulse 99 Oximetry 01/02/19 14:20 Temperature Pulse Rate 108 H Pulse Rate [ From Monitor] Respiratory Rate Blood Pressure 128/80 O2 Sat by Pulse Oximetry - General Appearance General appearance: well-developed EENT: ATNC Neck: no JVD Respiratory: Present: Decreased Breath Sounds Cardiology: regular, S1S2 Gastrointestinal: normoactive bowel sounds, no tenderness Integumentary: warm and dry Neurologic: alert and oriented x3 Musculoskeletal: other (trace edema to BLE) Psychiatric: cooperative - Lab 01/02/19 09:00 01/02/19 05:33 Most recent lab results Calcium 9.7 mg/dL (8.4-10.2) 01/02/19 05:33 Phosphorus 3.60 mg/dL (2.5-4.5) 12/29/18 10:30 Magnesium 2.00 mg/dL (1.7-2.3) 12/30/18 05:41 58.1 mg/dL (0.1-20.0) H 12/29/18 21:30 32 mmol/L 12/29/18 21:30 66 mg/dL (5-11.8) H 12/29/18 21:30 Medications & Allergies - Medications Allergies/Adverse Reactions: Allergies nitroglycerin Adverse Reaction (Verified 12/28/18 14:32) Shortness of Breath Home Medications: Home Medications Medication Instructions Recorded Confirmed Last Taken Type Isosorbide Mononitrate [Isosorbide 120 mg PO DAILY 09/12/13 12/28/18 08/12/18 08:00 History Mononitrate ER] Ropinirole HCl 1 tab PO DAILY 09/12/13 12/28/18 08/11/18 21:00 History Carvedilol [Coreg] 25 mg PO DAILY 11/24/15 12/28/18 08/12/18 08:00 History Clonidine HCl [Catapres] 0.3 mg PO TID 11/24/15 12/28/18 08/12/18 08:00 History Clopidogrel Bisulfate [Plavix] 75 mg PO DAILY 11/24/15 12/28/18 08/12/18 08:00 History Oxaprozin 900 mg PO BID 11/24/15 12/28/18 08/12/18 08:00 History Potassium Chloride [Klor-Con 10] 20 meq PO DAILY 11/24/15 12/28/18 08/12/18 08:00 History hydrALAZINE [Apresoline TAB] 100 mg PO TID 11/24/15 12/28/18 08/12/18 08:00 History Doxazosin [Cardura] 4 mg PO DAILY 08/12/18 12/28/18 08/12/18 08:00 History Ferrous Gluconate 324 mg PO BID 08/12/18 12/28/18 08/12/18 08:00 History Bumetanide [Bumex 1 mg tab] 1 mg PO DAILY #30 tab 08/15/18 12/28/18 Unknown Rx Insulin Glargine,Hum.rec.anlog 15 units SQ QHS 30 Days vial 08/15/18 12/28/18 Unknown Rx [Lantus] metOLazone [Zaroxolyn] 2.5 mg PO DAILY 12/28/18 12/28/18 Unknown History Active Medications: Generic Name Dose Route Start Last Admin Trade Name Freq PRN Reason Stop Dose Admin Acetaminophen 650 mg 12/28/18 20:21 01/02/19 03:07 Tylenol PO 650 mg Q4H PRN Administration Pain MILD(1-3)/Fever >100.5/REILLY Apixaban 5 mg 12/29/18 12:00 01/02/19 09:51 Eliquis PO 5 mg Q12HR [facility]ECTOR Administration Protocol Aspirin 81 mg 12/29/18 10:00 01/02/19 09:47 Baby Aspirin PO 81 mg QDAY [facility] Administration Bumetanide 1 mg 12/30/18 10:00 01/02/19 09:51 Bumex PO 1 mg DAILY [facility] Administration Clonidine HCl 0.1 mg 12/30/18 14:00 01/02/19 14:21 Catapres PO 0.1 mg TID [facility] Administration Dextrose 50 ml 12/28/18 20:21 D50w (25gm) Syringe IV PRN PRN Hypoglycemia Docusate Sodium 100 mg 12/28/18 22:00 01/02/19 09:47 Colace PO 100 mg BID [facility] Administration Doxazosin Mesylate 4 mg 12/30/18 10:00 01/02/19 10:01 Cardura PO 4 mg DAILY [facility] Administration Ferrous Gluconate 324 mg 12/28/18 22:00 01/02/19 09:52 Fergon PO 324 mg BID [facility] Administration Hydralazine HCl 100 mg 12/30/18 14:00 01/02/19 14:20 Apresoline PO 100 mg TID [facility] Administration Insulin Glargine 15 units 12/28/18 22:00 01/01/19 21:48 Lantus SUB-Q 15 units QHS [facility] Administration Insulin Human Lispro 0 unit 12/28/18 22:00 01/02/19 11:41 Humalog SUB-Q Not Given ACHS [facility] Protocol Metolazone 2.5 mg 12/30/18 10:00 01/02/19 09:52 Zaroxolyn PO 2.5 mg DAILY [facility] Administration Metoprolol Tartrate 50 mg 01/02/19 14:00 01/02/19 14:20 Lopressor PO 50 mg TID [facility] Administration Ondansetron HCl 4 mg 12/28/18 20:21 Zofran IV Q8H PRN Nausea And Vomiting Polyethylene Glycol 17 gm 12/29/18 20:51 01/01/19 11:55 Miralax 3350 PO 17 gm QDAY PRN Administration Constipation Potassium Chloride 20 meq 12/29/18 22:00 01/02/19 09:51 K-Dur PO 20 meq BID [facility] Administration Prednisone 20 mg 01/03/19 10:00 Deltasone PO QDAY [facility] Ropinirole HCl 1 mg 12/29/18 10:00 01/02/19 09:52 Requip PO 1 mg DAILY [facility] Administration Sodium Chloride 10 ml 12/28/18 22:00 01/02/19 09:52 Sodium Chloride Flush Syringe 10 Ml IV 10 ml BID [facility] Administration Sodium Chloride 10 ml 12/28/18 20:21 Sodium Chloride Flush Syringe 10 Ml IV PRN PRN LINE FLUSH
[2019-01-02] MEDS: LANTUS SUB-Q SCH (23:34)
[2019-01-03 05:13] LABS: Hematocrit 24.5 % (30.3-42.9); Hemoglobin 8.2 gm/dl (10.1-14.3); Mean Corpuscular HGB Conc 33 % (30-34); Mean Corpuscular Volume 86 fl (79-97); Platelet Count 267 K/mm3 (140-440); Red Blood Count 2.85 M/mm3 (3.65-5.03); Red Cell Distribution Width 17.1 % (13.2-15.2)
--- NOTE | 2019-01-03 08:23 | Progress Note ---
Assessment and Plan Cultures: Blood cultures 12/31/2018 no growth Urine culture 12/31/2018 10-100K E coli Assessment: 73y/o female with history of gout, diabetes, CKD, HTN, CHF, CAD/STEMI s/p CABG s/p stentx4 (2008), atrial fib admitted on 12/28/2018 due to generalized malaise and dizziness after she took her BP meds, she was admitted with CHF exacerbation and JOSE on CKD from hypotension, by 12/30/2018 she started spiking fever at 100.2-102: 1) Fever: not present on admission. Low grade fevers continuing. Associated with right ankle acute edema and tenderness typical location and pattern of her gouty attacks, likely acute gouty attack triggered by diuretics. UA negative on 12/29/2018. Blood cultures 12/31/2018 no growth. Right ankle xray shows Diffuse soft tissue swelling. Mild osteopenia. Mild degenerative changes. Plantar spur. 2) Asymptomatic bacteriuria without pyuria: likely urine contamination. Urine culture 12/31/2018 10-100K E coli 3) Acute on CKD Recommendations: - follow-up blood cultures - treat gout - monitor fevers -monitor off antibiotics [facility] M: [phone] O:[phone] Subjective Date of service: 01/03/19 Principal diagnosis: hypotension; AFib; AFlutter Interval history: Patient seen and examined. Sitting up in bed. No generalized pain or weakness reported. Fevers continuing. Objective - Exam Narrative Exam: General appearance: Awake. Alert. No acute distress Eyes: anicteric sclerae, moist conjunctivae; no lid-lag; PERRLA HENT: Atraumatic; oropharynx clear with moist mucous membranes and no mucosal ulcerations/no oral thrush; normal hard and soft palate. Normal external ears. Neck: Trachea midline; supple, no thyromegaly or lymphadenopathy Lungs: CTA, with normal respiratory effort and no intercostal retractions CV: RRR no murmur Abdomen: Soft, non-tender; no masses or hepatosplenomegaly Extremities: +right ankle edema improving. Warm. Skin: Normal temperature, turgor and texture; no rash, ulcers or subcutaneous nodules Psych: Appropriate affect, alert and oriented to person, place and time. Neuro: alert and oriented x 3. Moving all extermities - Constitutional Vitals: Vital Signs Temp Pulse Resp BP Pulse Ox 99.0 F 99 H 18 155/101 96 01/03/19 07:26 01/03/19 07:26 01/03/19 07:26 01/03/19 07:26 01/03/19 07:26 Temperature -Last 24 Hours Temperature 99.0 F Temperature 99.4 F Temperature 98.7 F - Labs CBC & Chem 7: 01/03/19 04:27 01/03/19 04:27 Labs: Abnormal lab results 01/02/19 01/02/19 01/02/19 Range/Units 09:00 11:42 16:36 RBC 3.01 L (3.65-5.03) M/mm3 Hgb 8.5 L (10.1-14.3) gm/dl Hct 26.1 L (30.3-42.9) % RDW 17.5 H (13.2-15.2) % Sodium (137-145) mmol/L Chloride (98-107) mmol/L BUN (7-17) mg/dL Creatinine (0.7-1.2) mg/dL Glucose (65-100) mg/dL POC Glucose 144 H 259 H (70-105) 01/02/19 01/03/19 01/03/19 Range/Units 21:06 04:27 04:27 RBC 2.85 L (3.65-5.03) M/mm3 Hgb 8.2 L (10.1-14.3) gm/dl Hct 24.5 L (30.3-42.9) % RDW 17.1 H (13.2-15.2) % Sodium 129 L (137-145) mmol/L Chloride 91.8 L (98-107) mmol/L BUN 59 H (7-17) mg/dL Creatinine 2.2 H (0.7-1.2) mg/dL Glucose 383 H (65-100) mg/dL POC Glucose 354 H (70-105) 01/03/19 Range/Units 07:17 RBC (3.65-5.03) M/mm3 Hgb (10.1-14.3) gm/dl Hct (30.3-42.9) % RDW (13.2-15.2) % Sodium (137-145) mmol/L Chloride (98-107) mmol/L BUN (7-17) mg/dL Creatinine (0.7-1.2) mg/dL Glucose (65-100) mg/dL POC Glucose 376 H (70-105)
[2019-01-03] MEDS: HumaLOG SUB-Q SCH ×4 (08:51→21:45)
[2019-01-03] MEDS: APRESOLINE PO SCH ×3 (08:51→23:20)
[2019-01-03] MEDS: CATAPRES PO SCH ×2 (08:52→21:47)
[2019-01-03] MEDS: LOPRESSOR PO SCH ×2 (08:52→21:48)
[2019-01-03] MEDS ORDERED: DELTASONE PO SCH (10:00)
[2019-01-03] MEDS: SODIUM CHLORIDE FLUSH SYRINGE 10 ML IV SCH ×2 (10:19→21:49)
[2019-01-03] MEDS: REQUIP PO SCH (10:19)
[2019-01-03] MEDS: BUMEX PO SCH (10:20)
[2019-01-03] MEDS: CARDURA PO SCH (10:20)
[2019-01-03] MEDS: BABY ASPIRIN PO SCH (10:20)
[2019-01-03] MEDS: K-DUR PO SCH ×2 (10:20→21:48)
[2019-01-03] MEDS: COLACE PO SCH ×2 (10:20→21:47)
[2019-01-03] MEDS: ELIQUIS PO SCH ×2 (10:20→21:46)
[2019-01-03] MEDS: FERGON PO SCH ×2 (10:21→21:48)
[2019-01-03] MEDS: ZAROXOLYN PO SCH (10:21)
--- NOTE | 2019-01-03 10:39 | Progress Note ---
Assessment and Plan Optimize HR- increase lopressor. will decrease hydralazine and clonidine dosages to allow for increase in lopressor. The patient has been seen in conjunction with Dr. Luevano who agrees with the assessment and plan of care. - Patient Problems (1) Hypotension Current Visit: Yes Status: Resolved (2) Atrial fibrillation and flutter Current Visit: Yes Status: Acute (3) Acute on chronic renal failure Current Visit: Yes Status: Acute (4) Anemia Current Visit: Yes Status: Acute (5) CAD (coronary artery disease) Current Visit: Yes Status: Chronic (6) History of coronary artery bypass graft Current Visit: Yes Status: Chronic (7) Stented coronary artery Current Visit: Yes Status: Chronic (8) History of chronic hypertension Current Visit: Yes Status: Chronic (9) Hyperlipidemia Current Visit: Yes Status: Chronic (10) Diabetes Current Visit: Yes Status: Chronic (11) Chronic venous insufficiency Current Visit: Yes Status: Chronic (12) Fever Current Visit: Yes Status: Acute Subjective Date of service: 01/03/19 Principal diagnosis: hypotension; AFib; AFlutter Interval history: pt resting in bed, no current cardiac complaints, states she is feeling better. tele reviewed - pt in AFib/AFlutter HR 100s - 110s. Objective Last Vital Signs Temp 99.0 F 01/03/19 07:26 Pulse 117 H 01/03/19 10:20 Resp 18 01/03/19 07:26 BP 119/67 01/03/19 10:20 Pulse Ox 96 01/03/19 07:26 - Physical Examination General: No Apparent Distress HEENT: Positive: PERRL Neck: Positive: neck supple Cardiac: Positive: irregularly irregular, S1/S2, Tachycardia Lungs: Positive: Decreased Breath Sounds Neuro: Positive: Grossly Intact Abdomen: Positive: Unremarkable, Soft, Active Bowel Sounds. Negative: Hepatosplenomegaly Skin: Positive: Clear Musculoskeletal: Normal Range of Motion Extremities: Present: normal. Absent: edema - Labs and Meds CBC 01/03/19 Range/Units 04:27 WBC 8.6 (4.5-11.0) K/mm3 RBC 2.85 L (3.65-5.03) M/mm3 Hgb 8.2 L (10.1-14.3) gm/dl Hct 24.5 L (30.3-42.9) % Plt Count 267 (140-440) K/mm3 Comprehensive Metabolic Panel 01/03/19 Range/Units 04:27 Sodium 129 L (137-145) mmol/L Potassium 4.9 (3.6-5.0) mmol/L Chloride 91.8 L (98-107) mmol/L Carbon Dioxide 26 (22-30) mmol/L BUN 59 H (7-17) mg/dL Creatinine 2.2 H (0.7-1.2) mg/dL Glucose 383 H (65-100) mg/dL Calcium 9.0 (8.4-10.2) mg/dL - Imaging and Cardiology EKG: image reviewed (83 bpm, atrial flutter) Echo: report reviewed (EF55-60%)
--- NOTE | 2019-01-03 11:49 | Progress Note ---
Assessment and Plan Assessment and plan: --Acute flareup of gout right ankle; Swelling and pain slightly improved, x-ray right ankle; soft tissue swelling Patient received Prednisone,patient refused prednisone due too elevated blood sugars Elevate the limb, NSAIDs discontinued due to worsening renal function Supportive care --Febrile illness/persistent fevers,Resolved --Sepsis secondary to urinary tract infection/gram-negative rods DC Rocephin,contaminated cultures per ID --Acute on chronic kidney diseaseIII : probably secondary to vasomotor nephropathy monitor renal function,avoid nephrotoxins, nephrology following --Hyponatremia; closely monitor lites, nephrology following --Hypotension; blood pressures improved --History of coronary artery disease status post CABG; stent in 1999 Continue current cardiac medications, cardiology following --Atrial fibrillation; rate controlled on beta blockers, anticoagulation Eliquis Aspirin 81 mg , DC Plavix [increased risk of bleeding ] patient already anemic Cardiology following --Chronic Diastolic congestive heart failure; EF 55-60% Continue current anti-failure medications and supportive care --Type 2 diabetes mellitus; uncontrolled secondary to steroid use Steroids Accu-Chek sliding scale coverage and ADA diet Insulin as needed --Chronic anemia; probably iron deficiency, kidney injury Closely monitor H&H and transfuse as needed --Morbid obesity; BMI 39 Advice weight reduction when medically stable --DVT prophylaxis;on Eliquis Ambulate as tolerated Disposition; possible discharge in 1-2 days if stable Plan of care reviewed with the patient and her nurse Consults and recommendations noted and appreciated History Interval history: Patient seen and examined medical records reviewed Patient feels slightly better However due to steroid use patient but sugars are uncontrolled Alert oriented 3 Vital signs reviewed Afebrile Hospitalist Physical - Constitutional Vitals: Temp Pulse Resp BP Pulse Ox 99.0 F 117 H 18 119/67 96 01/03/19 07:26 01/03/19 10:20 01/03/19 07:26 01/03/19 10:20 01/03/19 07:26 General appearance: Present: no acute distress, well-nourished, obese - EENT Eyes: Present: PERRL, EOM intact - Neck Neck: Present: supple, normal ROM - Respiratory Respiratory effort: normal Respiratory: bilateral: diminished, negative: rales, rhonchi, wheezing - Cardiovascular Rhythm: regular Heart Sounds: Present: S1 & S2 - Extremities Extremities: no ischemia, abnormal (right ankle swelling slightly improved, less tender) - Abdominal General gastrointestinal: soft, non-tender, non-distended, normal bowel sounds - Integumentary Integumentary: Present: clear, warm - Psychiatric Psychiatric: appropriate mood/affect, cooperative - Neurologic Neurologic: CNII-XII intact, moves all extremities Results - Labs CBC & Chem 7: 01/03/19 04:27 01/03/19 04:27 Labs: Laboratory Last Values WBC 8.6 K/mm3 (4.5-11.0) 01/03/19 04:27 RBC 2.85 M/mm3 (3.65-5.03) L 01/03/19 04:27 Hgb 8.2 gm/dl (10.1-14.3) L 01/03/19 04:27 Hct 24.5 % (30.3-42.9) L 01/03/19 04:27 MCV 86 fl (79-97) 01/03/19 04:27 MCH 29 pg (28-32) 01/03/19 04:27 MCHC 33 % (30-34) 01/03/19 04:27 RDW 17.1 % (13.2-15.2) H 01/03/19 04:27 Plt Count 267 K/mm3 (140-440) 01/03/19 04:27 Lymph % (Auto) 12.4 % (13.4-35.0) L 12/31/18 02:03 [place] % (Auto) 13.7 % (0.0-7.3) H 12/31/18 02:03 Eos % (Auto) 0.4 % (0.0-4.3) 12/31/18 02:03 Baso % (Auto) 0.9 % (0.0-1.8) 12/31/18 02:03 Lymph # 0.9 K/mm3 (1.2-5.4) L 12/31/18 02:03 [place] # 0.9 K/mm3 (0.0-0.8) H 12/31/18 02:03 Eos # 0.0 K/mm3 (0.0-0.4) 12/31/18 02:03 Baso # 0.1 K/mm3 (0.0-0.1) 12/31/18 02:03 Seg Neutrophils % 72.6 % (40.0-70.0) H 12/31/18 02:03 Seg Neutrophils # 5.0 K/mm3 (1.8-7.7) 12/31/18 02:03 Sodium 129 mmol/L (137-145) L 01/03/19 04:27 Potassium 4.9 mmol/L (3.6-5.0) 01/03/19 04:27 Chloride 91.8 mmol/L (98-107) L 01/03/19 04:27 Carbon Dioxide 26 mmol/L (22-30) 01/03/19 04:27 16 mmol/L 01/03/19 04:27 BUN 59 mg/dL (7-17) H 01/03/19 04:27 2.2 mg/dL (0.7-1.2) H 01/03/19 04:27 Estimated GFR 26 ml/min 01/03/19 04:27 27 % 01/03/19 04:27 Glucose 383 mg/dL (65-100) H 01/03/19 04:27 POC Glucose 361 (70-105) H 01/03/19 11:34 Lactic Acid 0.70 mmol/L (0.7-2.0) 12/31/18 02:03 Calcium 9.0 mg/dL (8.4-10.2) 01/03/19 04:27 Phosphorus 3.60 mg/dL (2.5-4.5) 12/29/18 10:30 Magnesium 2.00 mg/dL (1.7-2.3) 12/30/18 05:41 Iron 38 ug/dL (37-170) 12/29/18 10:31 TIBC 237 mcg/dL (250-450) L 12/29/18 10:31 191 mg/dl (192-382) L 12/29/18 10:31 288.9 ng/mL (13.0-400.0) 12/29/18 10:31 0.048 ng/mL (0.00-0.029) H 12/28/18 15:10 Triglycerides 84 mg/dL (2-149) 12/28/18 15:10 Cholesterol 104 mg/dL (50-199) 12/28/18 15:10 59 mg/dL (50-130) 12/28/18 15:10 35 mg/dL (40-59) L 12/28/18 15:10 2.97 % 12/28/18 15:10 TSH 0.920 mlU/mL (0.270-4.200) 12/31/18 13:16 Free T4 1.21 ng/dL (0.76-1.46) 12/31/18 13:15 PTH Intact 128.5 pg/mL (15-65) H 12/29/18 10:31 Yellow (Yellow) 12/31/18 12:15 Slightly-cloudy (Clear) 12/31/18 12:15 5.0 (5.0-7.0) 12/31/18 12:15 Ur Specific [place] 1.010 (1.003-1.030) 12/31/18 12:15 30 mg/dl mg/dL (Negative) 12/31/18 12:15 Neg mg/dL (Negative) 12/31/18 12:15 Neg mg/dL (Negative) 12/31/18 12:15 Neg (Negative) 12/31/18 12:15 Neg (Negative) 12/31/18 12:15 Neg (Negative) 12/31/18 12:15 < 2.0 mg/dL (<2.0) 12/31/18 12:15 Ur Leukocyte Esterase Tr (Negative) 12/31/18 12:15 2.0 /HPF (0.0-6.0) 12/31/18 12:15 6.0 /HPF (0.0-6.0) 12/31/18 12:15 U Epithel Cells (Auto) 5.0 /HPF (0-13.0) 12/31/18 12:15 1+ /HPF (Negative) 12/31/18 12:15 Few /HPF 12/31/18 12:15 58.1 mg/dL (0.1-20.0) H 12/29/18 21:30 30.6 mg/dL (0.1-34.0) 12/29/18 21:30 Microalb/Creat Ratio 526.6 ug/mg 12/29/18 21:30 32 mmol/L 12/29/18 21:30 66 mg/dL (5-11.8) H 12/29/18 21:30 Active Medications - Current Medications Current Medications: Generic Name Dose Route Start Last Admin Trade Name Freq PRN Reason Stop Dose Admin Acetaminophen 650 mg 12/28/18 20:21 01/02/19 03:07 Tylenol PO 650 mg Q4H PRN Administration Pain MILD(1-3)/Fever >100.5/REILLY Apixaban 5 mg 12/29/18 12:00 01/03/19 10:20 Eliquis PO 5 mg Q12HR HECTOR Administration Protocol Aspirin 81 mg 12/29/18 10:00 01/03/19 10:20 Baby Aspirin PO 81 mg QDAY [facility]ECTOR Administration Bumetanide 1 mg 12/30/18 10:00 01/03/19 10:20 Bumex PO 1 mg DAILY [facility] Administration Clonidine HCl 0.1 mg 01/03/19 22:00 Catapres PO BID [facility] Dextrose 50 ml 12/28/18 20:21 D50w (25gm) Syringe IV PRN PRN Hypoglycemia Docusate Sodium 100 mg 12/28/18 22:00 01/03/19 10:20 Colace PO 100 mg BID [facility] Administration Doxazosin Mesylate 4 mg 12/30/18 10:00 01/03/19 10:20 Cardura PO 4 mg DAILY [facility] Administration Ferrous Gluconate 324 mg 12/28/18 22:00 01/03/19 10:21 Fergon PO 324 mg BID [facility] Administration Hydralazine HCl 50 mg 01/03/19 10:38 Apresoline PO TID [facility] Insulin Glargine 15 units 12/28/18 22:00 01/02/19 23:34 Lantus SUB-Q 15 units QHS [facility]ECTOR Administration Insulin Human Lispro 0 unit 12/28/18 22:00 01/03/19 08:51 Humalog SUB-Q 5 unit ACHS [facility] Administration Protocol Metolazone 2.5 mg 12/30/18 10:00 01/03/19 10:21 Zaroxolyn PO 2.5 mg DAILY [facility] Administration Metoprolol Tartrate 100 mg 01/03/19 22:00 Lopressor PO BID [facility] Ondansetron HCl 4 mg 12/28/18 20:21 Zofran IV Q8H PRN Nausea And Vomiting Polyethylene Glycol 17 gm 12/29/18 20:51 01/01/19 11:55 Miralax 3350 PO 17 gm QDAY PRN Administration Constipation Potassium Chloride 20 meq 12/29/18 22:00 01/03/19 10:20 K-Dur PO 20 meq BID [facility]ECTOR Administration Prednisone 20 mg 01/03/19 10:00 01/03/19 10:21 Deltasone PO 20 mg QDAY [facility] Administration Ropinirole HCl 1 mg 12/29/18 10:00 01/03/19 10:19 Requip PO 1 mg DAILY [facility] Administration Sodium Chloride 10 ml 12/28/18 22:00 01/03/19 10:19 Sodium Chloride Flush Syringe 10 Ml IV 10 ml BID [facility] Administration Sodium Chloride 10 ml 12/28/18 20:21 Sodium Chloride Flush Syringe 10 Ml IV PRN PRN LINE FLUSH
--- NOTE | 2019-01-03 12:06 | Progress Note ---
Assessment and Plan Acute Kidney Injury possibly prerenal worsened in setting of hypotension, diuretics, on CKD Stage 3, r/o obstruction: Hypokalemia: Hyponatremia: - will d/c Metolazone for rising Cr and worsening hyponatremia - Review of labs from 2015 to Aug showed SCr level between 1.5-1.8 - cont bumex - Renal US showed 27 mm left renal cortical cyst, no hydronephrosis, mild perinephric fat stranding bilaterally - Replete potassium as needed - Hyponatremia stable - Pt started on prednisone for suspected right foot/toe gout pain - Renally dose meds - Briggs Catheter: No Hypotension: Hx of Hypertension: - Adjust BP medication regimen as needed CAD s/p CABG x 4: History of Proximal Atrial Tachycardia/ Atrial Flutter: Diastolic CHF: - On Bumex and metolazone - On Plavix - As per Cardiology Diabetes Mellitus Type 2 on insulin: - On SSI and Lantus - As per primary team Anemia: - Likely due to CKD - On oral iron Subjective Date of service: 01/03/19 Principal diagnosis: hypotension; AFib; AFlutter Interval history: swelling is improving Objective - Vital Signs Vital signs: Vital Signs - 12hr 01/03/19 01/03/19 01/03/19 02:55 07:26 08:52 Temperature 99.4 F 99.0 F Pulse Rate 114 H 99 H 99 H Respiratory 18 18 Rate Blood Pressure 149/83 155/101 155/101 O2 Sat by Pulse 97 96 Oximetry 01/03/19 10:20 Temperature Pulse Rate 117 H Respiratory Rate Blood Pressure 119/67 O2 Sat by Pulse Oximetry - General Appearance General appearance: well-developed, well-nourished, appears stated age EENT: ATNC, PERRL, mucous membranes moist Neck: no JVD, no carotid bruit Respiratory: Present: Clear to Ascultation Cardiology: regular, S1S2 Gastrointestinal: normoactive bowel sounds Integumentary: no rash, warm and dry Neurologic: no focal deficit, no asterixis, alert and oriented x3 Musculoskeletal: other (trace pitting edema in BLE) Psychiatric: mood/affect appropriate, cooperative - Lab 01/03/19 04:27 01/03/19 04:27 Most recent lab results Calcium 9.0 mg/dL (8.4-10.2) 01/03/19 04:27 Phosphorus 3.60 mg/dL (2.5-4.5) 12/29/18 10:30 Magnesium 2.00 mg/dL (1.7-2.3) 12/30/18 05:41 58.1 mg/dL (0.1-20.0) H 12/29/18 21:30 32 mmol/L 12/29/18 21:30 66 mg/dL (5-11.8) H 12/29/18 21:30 Medications & Allergies - Medications Allergies/Adverse Reactions: Allergies nitroglycerin Adverse Reaction (Verified 12/28/18 14:32) Shortness of Breath Home Medications: Home Medications Medication Instructions Recorded Confirmed Last Taken Type Isosorbide Mononitrate [Isosorbide 120 mg PO DAILY 09/12/13 12/28/18 08/12/18 08:00 History Mononitrate ER] Ropinirole HCl 1 tab PO DAILY 09/12/13 12/28/18 08/11/18 21:00 History Carvedilol [Coreg] 25 mg PO DAILY 11/24/15 12/28/18 08/12/18 08:00 History Clonidine HCl [Catapres] 0.3 mg PO TID 11/24/15 12/28/18 08/12/18 08:00 History Clopidogrel Bisulfate [Plavix] 75 mg PO DAILY 11/24/15 01/02/19 01/02/19 08:00 History 75mg Oxaprozin 900 mg PO BID 11/24/15 01/02/19 01/02/19 08:00 History 600mg Potassium Chloride [Klor-Con 10] 20 meq PO DAILY 11/24/15 01/02/19 01/02/19 08:00 History 20 meq hydrALAZINE [Apresoline TAB] 100 mg PO TID 11/24/15 12/28/18 08/12/18 08:00 H istory Doxazosin [Cardura] 4 mg PO DAILY 08/12/18 01/02/19 01/02/19 History 4mg Ferrous Gluconate 324 mg PO BID 08/12/18 01/02/19 01/02/19 08:00 History 325mg Bumetanide [Bumex 1 mg tab] 1 mg PO DAILY #30 tab 08/15/18 12/28/18 Unknown Rx Insulin Glargine,Hum.rec.anlog 15 units SQ QHS 30 Days vial 08/15/18 12/28/18 Unknown Rx [Lantus] metOLazone [Zaroxolyn] 2.5 mg PO DAILY 12/28/18 01/02/19 01/02/19 History 2.5mg Active Medications: Generic Name Dose Route Start Last Admin Trade Name Freq PRN Reason Stop Dose Admin Acetaminophen 650 mg 12/28/18 20:21 01/02/19 03:07 Tylenol PO 650 mg Q4H PRN Administration Pain MILD(1-3)/Fever >100.5/REILLY Apixaban 5 mg 12/29/18 12:00 01/03/19 10:20 Eliquis PO 5 mg Q12HR HECTOR Administration Protocol Aspirin 81 mg 12/29/18 10:00 01/03/19 10:20 Baby Aspirin PO 81 mg QDAY HECTOR Administration Bumetanide 1 mg 12/30/18 10:00 01/03/19 10:20 Bumex PO 1 mg DAILY HECTOR Administration Clonidine HCl 0.1 mg 01/03/19 22:00 Catapres PO BID HECTOR Dextrose 50 ml 12/28/18 20:21 D50w (25gm) Syringe IV PRN PRN Hypoglycemia Docusate Sodium 100 mg 12/28/18 22:00 01/03/19 10:20 Colace PO 100 mg BID HECTOR Administration Doxazosin Mesylate 4 mg 12/30/18 10:00 01/03/19 10:20 Cardura PO 4 mg DAILY HECTOR Administration Ferrous Gluconate 324 mg 12/28/18 22:00 01/03/19 10:21 Fergon PO 324 mg BID HECTOR Administration Hydralazine HCl 50 mg 01/03/19 10:38 Apresoline PO TID HECTOR Insulin Glargine 15 units 12/28/18 22:00 01/02/19 23:34 Lantus SUB-Q 15 units QHS HECTOR Administration Insulin Human Lispro 0 unit 12/28/18 22:00 01/03/19 11:52 Humalog SUB-Q 5 unit ACHS HECTOR Administration Protocol Metoprolol Tartrate 100 mg 01/03/19 22:00 Lopressor PO BID HECTOR Ondansetron HCl 4 mg 12/28/18 20:21 Zofran IV Q8H PRN Nausea And Vomiting Polyethylene Glycol 17 gm 12/29/18 20:51 01/01/19 11:55 Miralax 3350 PO 17 gm QDAY PRN Administration Constipation Potassium Chloride 20 meq 12/29/18 22:00 01/03/19 10:20 K-Dur PO 20 meq BID HECTOR Administration Prednisone 20 mg 01/03/19 10:00 01/03/19 10:21 Deltasone PO 20 mg QDAY HECTOR Administration Ropinirole HCl 1 mg 12/29/18 10:00 01/03/19 10:19 Requip PO 1 mg DAILY HECTOR Administration Sodium Chloride 10 ml 12/28/18 22:00 01/03/19 10:19 Sodium Chloride Flush Syringe 10 Ml IV 10 ml BID HECTOR Administration Sodium Chloride 10 ml 12/28/18 20:21 Sodium Chloride Flush Syringe 10 Ml IV PRN PRN LINE FLUSH
[2019-01-03] MEDS: LANTUS SUB-Q SCH (21:46)
[2019-01-04] MEDS: HumaLOG SUB-Q SCH ×6 (02:02→13:32)
[2019-01-04 06:04] LABS: Hematocrit 25.3 % (30.3-42.9); Hemoglobin 8.4 gm/dl (10.1-14.3); Mean Corpuscular HGB Conc 33 % (30-34); Mean Corpuscular Volume 85 fl (79-97); Platelet Count 293 K/mm3 (140-440); Red Blood Count 2.97 M/mm3 (3.65-5.03); Red Cell Distribution Width 16.9 % (13.2-15.2)
[2019-01-04 06:34] LABS: Calcium 10.1 mg/dL (8.4-10.2)
[2019-01-04] MEDS: APRESOLINE PO SCH (08:27)
--- NOTE | 2019-01-04 09:03 | Progress Note ---
Assessment and Plan Cultures: Blood cultures 12/31/2018 no growth Urine culture 12/31/2018 10-100K E coli Assessment: 73y/o female with history of gout, diabetes, CKD, HTN, CHF, CAD/STEMI s/p CABG s/p stentx4 (2008), atrial fib admitted on 12/28/2018 due to generalized malaise and dizziness after she took her BP meds, she was admitted with CHF exacerbation and JOSE on CKD from hypotension, by 12/30/2018 she started spiking fever at 100.2-102: 1) Fever: not present on admission. No fever in >24 hours. . Associated with right ankle acute edema and tenderness typical location and pattern of her gouty attacks, likely acute gouty attack triggered by diuretics. UA negative on 12/29/2018. Blood cultures 12/31/2018 no growth. Right ankle xray shows Diffuse soft tissue swelling. Mild osteopenia. Mild degenerative changes. Plantar spur. 2) Asymptomatic bacteriuria without pyuria: likely urine contamination. Urine culture 12/31/2018 10-100K E coli 3) Acute on CKD Recommendations: - treat gout -monitor off antibiotics -ID is signing off [facility] M: [phone] O:[phone] Subjective Date of service: 01/04/19 Principal diagnosis: hypotension; AFib; AFlutter Interval history: Patient seen and examined. Sitting up in the chair. No generalized pain or weakness reported. No fevers. Objective - Exam Narrative Exam: General appearance: Awake. Alert. No acute distress Eyes: anicteric sclerae, moist conjunctivae; no lid-lag; PERRLA HENT: Atraumatic; oropharynx clear with moist mucous membranes and no mucosal ulcerations/no oral thrush; normal hard and soft palate. Normal external ears. Neck: Trachea midline; supple, no thyromegaly or lymphadenopathy Lungs: CTA, with normal respiratory effort and no intercostal retractions CV: RRR no murmur Abdomen: Soft, non-tender; no masses or hepatosplenomegaly Extremities: +right ankle edema improving. Warm. Skin: Normal temperature, turgor and texture; no rash, ulcers or subcutaneous nodules Psych: Appropriate affect, alert and oriented to person, place and time. Neuro: alert and oriented x 3. Moving all extermities - Constitutional Vitals: Vital Signs Temp Pulse Resp BP Pulse Ox 98.4 F 82 18 178/97 96 01/04/19 07:09 01/04/19 07:09 01/04/19 07:34 01/04/19 07:09 01/04/19 07:34 Temperature -Last 24 Hours Temperature 98.4 F Temperature 98.8 F Temperature 99.2 F Temperature 99.4 F - Labs CBC & Chem 7: 01/04/19 05:40 01/04/19 05:40 Labs: Abnormal lab results 01/03/19 01/03/19 01/03/19 Range/Units 11:34 16:44 21:46 RBC (3.65-5.03) M/mm3 Hgb (10.1-14.3) gm/dl Hct (30.3-42.9) % RDW (13.2-15.2) % Sodium (137-145) mmol/L Chloride (98-107) mmol/L BUN (7-17) mg/dL Creatinine (0.7-1.2) mg/dL Glucose (65-100) mg/dL POC Glucose 361 H 324 H 413 H (70-105) 01/03/19 01/04/19 01/04/19 Range/Units 23:18 05:40 05:40 RBC 2.97 L (3.65-5.03) M/mm3 Hgb 8.4 L (10.1-14.3) gm/dl Hct 25.3 L (30.3-42.9) % RDW 16.9 H (13.2-15.2) % Sodium 133 L (137-145) mmol/L Chloride 93.4 L (98-107) mmol/L BUN 67 H (7-17) mg/dL Creatinine 2.0 H (0.7-1.2) mg/dL Glucose 225 H (65-100) mg/dL POC Glucose 364 H (70-105) 01/04/19 Range/Units 07:14 RBC (3.65-5.03) M/mm3 Hgb (10.1-14.3) gm/dl Hct (30.3-42.9) % RDW (13.2-15.2) % Sodium (137-145) mmol/L Chloride (98-107) mmol/L BUN (7-17) mg/dL Creatinine (0.7-1.2) mg/dL Glucose (65-100) mg/dL POC Glucose 192 H (70-105)
[2019-01-04] MEDS: LOPRESSOR PO SCH (10:18)
[2019-01-04] MEDS: K-DUR PO SCH (10:18)
[2019-01-04] MEDS: BABY ASPIRIN PO SCH (10:18)
[2019-01-04] MEDS: MIRALAX 3350 PO PRN (10:18)
[2019-01-04] MEDS: CARDURA PO SCH (10:19)
[2019-01-04] MEDS: BUMEX PO SCH (10:19)
[2019-01-04] MEDS: CATAPRES PO SCH (10:19)
[2019-01-04] MEDS: COLACE PO SCH (10:19)
[2019-01-04] MEDS: SODIUM CHLORIDE FLUSH SYRINGE 10 ML IV SCH (10:20)
[2019-01-04] MEDS: FERGON PO SCH (10:20)
[2019-01-04] MEDS: REQUIP PO SCH (10:23)
[2019-01-04] MEDS: ELIQUIS PO SCH (10:23)
[2019-01-04] MEDS ORDERED: APRESOLINE PO SCH (11:28)
--- NOTE | 2019-01-04 11:28 | Progress Note ---
Assessment and Plan Currently stable cardiac status. Pt may discharge from cardiology standpoint. Recommend pt follow up in our office with Dr. Bowers within 1-2 weeks of hospital discharge ([phone]). The patient has been seen in conjunction with Dr. Luevano who agrees with the assessment and plan of care. - Patient Problems (1) Hypotension Current Visit: Yes Status: Resolved (2) Atrial fibrillation and flutter Current Visit: Yes Status: Acute (3) Acute on chronic renal failure Current Visit: Yes Status: Acute (4) Anemia Current Visit: Yes Status: Acute (5) CAD (coronary artery disease) Current Visit: Yes Status: Chronic (6) History of coronary artery bypass graft Current Visit: Yes Status: Chronic (7) Stented coronary artery Current Visit: Yes Status: Chronic (8) History of chronic hypertension Current Visit: Yes Status: Chronic (9) Hyperlipidemia Current Visit: Yes Status: Chronic (10) Diabetes Current Visit: Yes Status: Chronic (11) Chronic venous insufficiency Current Visit: Yes Status: Chronic (12) Fever Current Visit: Yes Status: Acute Subjective Date of service: 01/04/19 Principal diagnosis: hypotension; AFib; AFlutter Interval history: pt sitting up in chair, no current cardiac complaints, states she is feeling better. tele reviewed - pt in AFib/AFlutter HR 100s - 110s. Objective Last Vital Signs Temp 98.4 F 01/04/19 07:09 Pulse 82 01/04/19 07:09 Resp 18 01/04/19 07:34 BP 178/97 01/04/19 07:09 Pulse Ox 96 01/04/19 07:34 - Physical Examination General: No Apparent Distress HEENT: Positive: PERRL Neck: Positive: neck supple Cardiac: Positive: irregularly irregular, S1/S2 Lungs: Positive: Decreased Breath Sounds Neuro: Positive: Grossly Intact Abdomen: Positive: Unremarkable, Soft, Active Bowel Sounds. Negative: Hepatosplenomegaly Skin: Positive: Clear Musculoskeletal: Normal Range of Motion Extremities: Present: normal. Absent: edema - Labs and Meds CBC 01/04/19 Range/Units 05:40 WBC 8.8 (4.5-11.0) K/mm3 RBC 2.97 L (3.65-5.03) M/mm3 Hgb 8.4 L (10.1-14.3) gm/dl Hct 25.3 L (30.3-42.9) % Plt Count 293 (140-440) K/mm3 Comprehensive Metabolic Panel 01/04/19 Range/Units 05:40 Sodium 133 L (137-145) mmol/L Potassium 4.7 (3.6-5.0) mmol/L Chloride 93.4 L (98-107) mmol/L Carbon Dioxide 26 (22-30) mmol/L BUN 67 H (7-17) mg/dL Creatinine 2.0 H (0.7-1.2) mg/dL Glucose 225 H (65-100) mg/dL Calcium 10.1 (8.4-10.2) mg/dL - Imaging and Cardiology EKG: image reviewed (83 bpm, atrial flutter) Echo: report reviewed (EF55-60%)
--- NOTE | 2019-01-04 11:58 | Discharge Summary ---
Providers - Providers Date of Admission: 12/28/18 20:21 Date of discharge: 01/04/19 Attending physician: ALYX ARZATE 12/28/18 20:21 Consult to Physician [CONS] Routine Comment: Consulting Provider: KAILASH VALLE Physician Instructions: Reason For Exam: acute on chronic CKD Consult to Physician [CONS] Routine Comment: Consulting Provider: ALIRIO COLON Physician Instructions: Reason For Exam: new aflutter, hx paroxysmal atrial tachycardia, 12/31/18 14:57 Physical Therapy Evaluation and Treat [CONS] Routine Comment: Reason For Exam: gen debility/need for home PT 01/02/19 08:27 Consult to Physician [CONS] Routine Comment: spoke to sarah Consulting Provider: SOCRATES STOREY Physician Instructions: Reason For Exam: persistent fever/UTI gm neg rods Primary care physician: JEAN BRO Hospitalization Reason for admission: Dizziness/gout flareup Condition: Stable Pertinent studies: -Chest x-ray Plan ultrasound Ankle x-ray Hospital course: 73-year-old -Italian female with history of diastolic CHF with EF of 55 this to 60% ( Echo 08/13/18), DM, CK 83, HTN, and STEMI, proximal atrial tachycardia, CAD with history of CABG s/p stentx4 (2008), venous insufficiency, morbid obesity, chronic anemia was admitted through the emergency room with complaints of dizziness. Probably secondary to much her blood pressure medications ,Her dizziness did not improve , patient came to ED for further evaluation and treatment. Patient was evaluated by cardiology and nephrology and infectious diseases medications optimized Patient was initially evaluated and admitted to the hospital, also had gout flared up which was treated appropriately with NSAIDs and steroids Patient had fevers empiric antibiotics were started, gram-negative ekaterina cultures positive, ID evaluated and further contamination, antibiotics discontinued Electrolyte imbalances corrected, today patient is comfortable in no new complaints vital signs stable Physical examination at discharge is unremarkable Discharge diagnosis; And management --History of coronary artery disease status post CABG; stent in 1999 Continue current cardiac medications, cardiology following --Atrial fibrillation; rate controlled on beta blockers, anticoagulation Eliquis Aspirin 81 mg , DC Plavix [increased risk of bleeding ] patient already anemic Cardiology following --Chronic Diastolic congestive heart failure; EF 55-60% Continue current anti-failure medications and supportive care --Acute flareup of gout right ankle; Swelling and pain slightly improved, x-ray right ankle; soft tissue swelling Patient received Prednisone,patient refused prednisone due too elevated blood sugars Elevate the limb, NSAIDs discontinued due to worsening renal function Supportive care --Febrile illness/persistent fevers,Resolved --Sepsis secondary to urinary tract infection/gram-negative rods VANDANA Roce[place],contaminated cultures per ID --Acute on chronic kidney diseaseIII : probably secondary to vasomotor nephropathy monitor renal function,avoid nephrotoxins, nephrology following --Hyponatremia; closely monitor lites, nephrology following --Hypotension; blood pressures improved --Type 2 diabetes mellitus; uncontrolled secondary to steroid use Steroids Accu-Chek sliding scale coverage and ADA diet Insulin as needed --Chronic anemia; probably iron deficiency, kidney injury Closely monitor H&H and transfuse as needed --Morbid obesity; BMI 39 Advice weight reduction when medically stable --DVT prophylaxis;on Eliquis Ambulate as tolerated Disposition; possible discharge in 1-2 days if stable Plan of care reviewed with the patient and her nurse Consults and recommendations noted and appreciated Disposition: DC- TO HOME OR SELFCARE Time spent for discharge: 33 min Core Measure Documentation - Palliative Care Palliative Care/ Comfort Measures: Not Applicable - Core Measures Any of the following diagnoses?: none Exam - Constitutional Vitals: Temp Pulse Resp BP Pulse Ox 98.4 F 82 18 178/97 96 01/04/19 07:09 01/04/19 07:09 01/04/19 07:34 01/04/19 07:09 01/04/19 07:34 Plan Follow up with: JEAN BRO MD [Primary Care Provider] - 3-5 Days JACE CORTES MD [Staff Physician] - 7 Days HARPREET VAZQUEZ MD [Staff Physician] - 7 Days Prescriptions: Aspirin [Aspirin BABY CHEW TAB] 81 mg PO QDAY #30 tab.chew cloNIDine [Catapres] 0.1 mg PO BID #60 tablet Apixaban [Eliquis] 5 mg PO Q12HR #60 tablet Metoprolol [Lopressor TAB] 100 mg PO BID #60 tablet
[2019-01-04 14:33] VITALS: BP 148/90
== END 2019-01-04 14:20 | disposition home or self-care (01) | DRG 682 ==
LOC: ED 14:30 → 4A 20:21 → 2B-ACE 12-31 13:03
PROVIDERS: ADMIT Internal Medicine; ATTEND Internal Medicine
DX: N17.0 Acute kidney failure with tubular necrosis (principal); A41.9 Sepsis, unspecified organism; I48.92 Unspecified atrial flutter; I13.0 Hypertensive heart and chronic kidney disease with heart failure and stage 1 through stage 4 chronic kidney disease, or unspecified chronic kidney disease; E87.1 Hypo-osmolality and hyponatremia; I50.32 Chronic diastolic (congestive) heart failure; N39.0 Urinary tract infection, site not specified; E66.01 Morbid (severe) obesity due to excess calories; N18.3 Chronic kidney disease, stage 3 (moderate); E11.22 Type 2 diabetes mellitus with diabetic chronic kidney disease; M19.90 Unspecified osteoarthritis, unspecified site; I25.2 Old myocardial infarction; I25.10 Atherosclerotic heart disease of native coronary artery without angina pectoris; D64.9 Anemia, unspecified; E87.6 Hypokalemia; N28.1 Cyst of kidney, acquired; I87.2 Venous insufficiency (chronic) (peripheral); E78.5 Hyperlipidemia, unspecified; M10.071 Idiopathic gout, right ankle and foot; I48.91 Unspecified atrial fibrillation; Z95.5 Presence of coronary angioplasty implant and graft; Z95.1 Presence of aortocoronary bypass graft; Z68.39 Body mass index [BMI] 39.0-39.9, adult; Z90.710 Acquired absence of both cervix and uterus; Z79.4 Long term (current) use of insulin
CPT/HCPCS: 36415; 71045; 76770; 80048; 80061; 81001; 82043; 82140; 82728; 82962; 83550; 83735; 83970; 84100; 84156; 84300; 84439; 84443; 84466; 84484; 85025; 85027; 87040; 87076; 87086; 87186; 93005; 93010; 96361; 96372; G0378; J0696; J1644; J1815; J3475; J7030; J7512

== ENCOUNTER 2021-08-13 06:19 | Day surgery (SDC) | payer MEDICARE ==
[2021-08-13] MEDS ORDERED: SODIUM CHLORIDE 0.9% 1000 ML 1,000 ML IV SCH (07:00)
[2021-08-13 07:24] LABS: Hematocrit 32.7 % (30.3-42.9); Hemoglobin 10.3 gm/dl (10.1-14.3); Mean Corpuscular HGB Conc 32 % (30-34); Mean Corpuscular Volume 97 fl (79-97); Platelet Count 195 K/mm3 (140-440); Red Blood Count 3.38 M/mm3 (3.65-5.03); Red Cell Distribution Width 16.3 % (13.2-15.2)
[2021-08-13 07:33] LABS: Calcium 7.9 mg/dL (8.4-10.2); INR 1.06 (0.87-1.13)
[2021-08-13] MEDS ORDERED: SODIUM CHLORIDE 0.9% 1000 ML 1,000 ML ONE (07:33)
[2021-08-13 07:34] LABS: Partial Thromboplastin Time 42.8 Sec. (24.2-36.6)
[2021-08-13] MEDS ORDERED: MIDAZOLAM 2 MG/2 ML INJ ONE (07:41)
[2021-08-13] MEDS ORDERED: propofoL 200 MG/20 ML VIAL IV ONE ×2 (07:41→07:46)
[2021-08-13] MEDS ORDERED: ePHEDrine SULFATE 50 MG/1 ML INJ ONE (07:42)
[2021-08-13] MEDS ORDERED: LIDOCAINE MPF (2%) 20 MG/1 ML VIAL 5 ML ONE (07:42)
--- NOTE | 2021-08-13 07:51 | Anesthesia Day of Surgery ---
Anesthesia Day of Surgery - Day of Surgery Patient Examined: Yes Patient H&P Reviewed: Yes Patient is NPO: Yes
--- NOTE | 2021-08-13 07:51 | Anesthesia Consultation ---
Anesthesia Consult and Med Hx Date of service: 08/13/21 - Airway Anesthetic Teeth Evaluation: Good, Dentures (upper) ROM Head & Neck: Adequate Mental/Hyoid Distance: Adequate Mallampati Class: Class III Intubation Access Assessment: Possibly Difficult - Pre-Operative Health Status ASA Pre-Surgery Classification: ASA3 Proposed Anesthetic Plan: MAC - Pulmonary Hx Smoking: No Hx Respiratory Symptoms: No - Cardiovascular System Hx Hypertension: Yes Hx Coronary Artery Disease: Yes (s/p CABG and stents ) Hx Cardia Arrhythmia: Yes (a-flutter) Hx Pacemaker: No Hx Internal Defibrillator: No - Endocrine Hx End Stage Renal Disease: Yes (ESRD last HD 08/12/21) Hx Liver Disease: No Hx Insulin Dependent Diabetes: Yes Hx Thyroid Disease: No - Other Systems Hx Obesity: Yes (BMI 32) - Additional Comments Anesthesia Medical History Comments: No hx anesthetic complications.
[2021-08-13 08:17] LABS: Eosinophils % (Auto) 0.3 % (0.0-4.3); Monocytes # (Auto) 0.7 K/mm3 (0.0-0.8); Monocytes % (Auto) 18.1 % (0.0-7.3)
[2021-08-13 10:52] VITALS: BP 111/45
--- NOTE | 2021-08-13 11:36 | Post Anesthesia Evaluation ---
- Post Anesthesia Evaluation Patient Participated: Yes Airway Patent: Yes Stable Respiratory Function: Yes Nausea/Vomiting: No Temp > 96.8F: Yes Pain Manageable: Yes Adequeate Hydration: Yes Anesthesia Complications: No
--- NOTE | 2021-08-13 14:43 | Electrocardiograph Report ---
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
--- NOTE | 2021-08-13 14:44 | Electrocardiograph Report ---
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
[2021-08-13 16:20] LABS: Anisocytosis Few; Basophils % (Manual) 0 % (0.0-1.8); Eosinophils % (Manual) 0 % (0.0-4.3); Hypochromasia Few; Macrocytosis Few; Platelet Estimate Consistent w Auto; Total Cells Counted 100
--- NOTE | 2021-08-13 23:48 | Procedure Note ---
DATE OF PROCEDURE: 08/13/2021 ELECTRICAL CARDIOVERSION NOTE REASON FOR ELECTRICAL CARDIOVERSION: Atrial flutter. DESCRIPTION OF PROCEDURE: Informed consent was first obtained for electrical cardioversion. With the patient in a supine position, electrode pads were applied over the anterior and posterior chest wall. Under continuous electrocardiographic monitoring and monitoring of her vital signs, the patient was sedated by the anesthesiologist using intravenous propofol. After adequate sedation, a 100 joule synchronized shock was applied over the electrode pads. The patient converted to sinus bradycardia. The procedure was well tolerated with no obvious complications. TID: [id number] RECEIPT: [id number] KYRIE/[place]
== END 2021-08-13 11:20 | disposition home or self-care (01) ==
LOC: CATHLABREC 06:19
PROVIDERS: ATTEND Internal Medicine
DX: I48.92 Unspecified atrial flutter (principal); I13.2 Hypertensive heart and chronic kidney disease with heart failure and with stage 5 chronic kidney disease, or end stage renal disease; E11.22 Type 2 diabetes mellitus with diabetic chronic kidney disease; I50.31 Acute diastolic (congestive) heart failure; N18.6 End stage renal disease; I25.10 Atherosclerotic heart disease of native coronary artery without angina pectoris; G62.9 Polyneuropathy, unspecified; E66.9 Obesity, unspecified; M19.90 Unspecified osteoarthritis, unspecified site; Z90.710 Acquired absence of both cervix and uterus; Z79.4 Long term (current) use of insulin; Z98.890 Other specified postprocedural states; Z79.899 Other long term (current) drug therapy; Z95.1 Presence of aortocoronary bypass graft; Z68.32 Body mass index [BMI] 32.0-32.9, adult; Z86.73 Personal history of transient ischemic attack (TIA), and cerebral infarction without residual deficits
CPT/HCPCS: 36415; 80048; 85007; 85025; 85610; 85730; 92960; 93005; 93010; J2250; J2704; J3490; J7030; U0003; J7120; Q0162